=== PATIENT | female | born 1955 | race Caucasian/White ===

== ENCOUNTER 2020-02-02 15:13 | Outpatient (CLI) | payer OTHER, SELFPAY ==
--- NOTE | ~2020-02-02 | XR_ITS ---
EXAMINATION: XR foot right standing 2V DATE: 02/02/2020 16:39 INDICATION: Osteoarthritis. TECHNIQUE: 1. Standing dorsal plantar and lateral views of the left foot were obtained. 2. Standing dorsal plantar and lateral views of the right foot were obtained. COMPARISON: None. FINDINGS: Multiple hammertoes at the bilateral feet. Alignment is otherwise normal. No fracture. Mild polyartic ular osteoarthritis involving multiple joints in the mid and forefeet. No cortical erosions. There ar e bilateral Achilles and plantar calcaneal enthesophytes. Additional enthesopathic ossification along the proximal aspect of the bilateral plantar aponeurosis. IMPRESSION: 1. Mild polyarticular osteoarthritis at both feet. 2. Chronic enthesopathy with bilateral Achilles and plantar calcaneal enthesophytes and heterotopic o ssification along the bilateral plantar aponeuroses. Reviewed, dictated and finalized at location A. IMPRESSION: 1. Mild polyarticular osteoarthritis at both feet. 2. Chronic enthesopathy with bilateral Achilles and plantar calcaneal enthesoph ytes and heterotopic ossification along the bilateral plantar aponeuroses.
--- NOTE | ~2020-02-02 | XR_ITS ---
EXAMINATION: HAND-PEGGY ARTHRITIS 3+VIEWS DATE: 02/02/2020 16:39 INDICATION: Osteoarthritis TECHNIQUE: Posteroanterior, lateral, and oblique views of the left and of the right hands as well as a ballcatchers view of both hands were obtained. COMPARISON: None. FINDINGS: No fracture. The articular osteoarthritis, severe at the right fifth distal interphalangeal joint wit h mild radial angulation. Moderate osteoarthritis at the left fifth distal interphalangeal joint. Mil d osteoarthritis at the bilateral first carpal metacarpal joints and majority of the interphalangeal joints with distal predominance. Mild cystic change versus less likely chronic erosion with corticate d margins at the radial aspect of the head of the right third middle phalanx. Diffuse osteopenia. IMPRESSION: 1. Polyarticular osteoarthritis in both hands in the severe at the right and moderate to the left fif th distal interphalangeal joints and otherwise mild with typical distribution. Reviewed, dictated and finalized at location A. IMPRESSION: 1. Polyarticular osteoarthritis in both hands in the severe at the right and mo derate to the left fifth distal interphalangeal joints and otherwise mild with typical distribution.
--- NOTE | ~2020-02-02 | XR_ITS ---
XR knee LT 3V DATE: 02/02/2020 16:40 INDICATION: Left knee pain TECHNIQUE: [place], standing AP and lateral views COMPARISON: 08/05/2016 left knee FINDINGS: There is enthesopathy of the superior pole of the patella at the insertion of the quadricep s tendon. No fracture or dislocation or any significant joint effusion is evident. No periosteal reaction or leah ne destruction. No radiopaque intra-articular loose body or chondrocalcinosis. There is osteoarthritis at the patellofemoral joint, with periarticular mild spurring. IMPRESSION: Osteoarthritis at the patellofemoral joint Reviewed, dictated and finalized at location A.
--- NOTE | ~2020-02-02 | XR_ITS ---
EXAMINATION: XR foot LT standing 2V DATE: 02/02/2020 16:39 INDICATION: Osteoarthritis. TECHNIQUE: 1. Standing dorsal plantar and lateral views of the left foot were obtained. 2. Standing dorsal plantar and lateral views of the right foot were obtained. COMPARISON: None. FINDINGS: Multiple hammertoes at the bilateral feet. Alignment is otherwise normal. No fracture. Mild polyartic ular osteoarthritis involving multiple joints in the mid and forefeet. No cortical erosions. There ar e bilateral Achilles and plantar calcaneal enthesophytes. Additional enthesopathic ossification along the proximal aspect of the bilateral plantar aponeurosis. IMPRESSION: 1. Mild polyarticular osteoarthritis at both feet. 2. Chronic enthesopathy with bilateral Achilles and plantar calcaneal enthesophytes and heterotopic o ssification along the bilateral plantar aponeuroses. Reviewed, dictated and finalized at location A. IMPRESSION: 1. Mild polyarticular osteoarthritis at both feet. 2. Chronic enthesopathy with bilateral Achilles and plantar calcaneal enthesoph ytes and heterotopic ossification along the bilateral plantar aponeuroses.
--- NOTE | ~2020-02-02 | XR_ITS ---
XR knee RT 3V DATE: 02/02/2020 16:39 INDICATION: Unspecified osteoarthritis TECHNIQUE: [place] and standing AP and lateral views COMPARISON: None FINDINGS: There is mild periarticular spurring of the patella. No fracture or dislocation or joint effusion is evident. No periosteal reaction or bone destruction. No radiopaque intra-articular loose body or chondrocalcinosis. IMPRESSION: Mild patellofemoral osteoarthritis Reviewed, dictated and finalized at location A.
== END 2020-02-02 15:14 | disposition home or self-care (01) ==
LOC: ANHIMG 15:17
PROVIDERS: Visit Provider Internal Medicine
DX: M19.041 Primary osteoarthritis, right hand (principal); M19.042 Primary osteoarthritis, left hand; M19.071 Primary osteoarthritis, right ankle and foot; M19.072 Primary osteoarthritis, left ankle and foot; M17.0 Bilateral primary osteoarthritis of knee
CPT/HCPCS: 73130; 73562; 73620

== ENCOUNTER → 2020-02-17 08:05 | Outpatient (CLI) | payer OTHER, SELFPAY ==
--- NOTE | ~2020-02-17 | US_ITS ---
EXAMINATION: US carotid duplex BI DATE: 02/17/2020 08:44 INDICATION: Essential hypertension. Headache. TECHNIQUE: Grayscale, color Doppler, and pulsed Doppler images of the cervical carotid arteries were obtained. The degree of vessel stenosis is placed in one of the following categories: normal, <50%, 5 0-69%, >=70% but less than near-occlusion, near-occlusion, or total occlusion. Note that percent sten osis relative to normal distal artery lumen diameter is indirectly measured from velocity measurement s as described by Placido, et al. Radiology 2003; 229:340-346. Notes: Normal: Peak systolic velocity <125 centimeters/sec and no plaque <50%. Peak systolic velocity <125 ( EDV <40; ICA/CCA PSV ratio <2.0; used these factors only a tandem lesions or low cardiac output or co ntralateral disease) 50-69 %: PSV 125-230 (EDV 40-100; ratio 2-4) >= 70% but less than near occlusion: PSV greater than 230 (EDV > 100; ratio> 4.0) Near Occlusion: PSV that is variable; markedly narrowed lumen Occlusion: Absent flow on color/spectral Doppler and no lumen on lozano scale. COMPARISON: None. FINDINGS: RIGHT: The right common carotid artery (CCA) peak systolic velocity (PSV) is 90 cm/s. The right internal car otid artery (ICA) PSV is 72 cm/s. The right ICA end-diastolic velocity (EDV) is 22 cm/s. The right IC A/CCA PSV ratio is 0.8. The external carotid artery (ECA) PSV is 65 cm/s. There is antegrade flow in the right vertebral artery. LEFT: The left CCA PSV is 98 cm/s. The left ICA PSV is 66 cm/s. The left ICA EDV is 24 cm/s. The left ICA/C CA PSV ratio is 0.7. The ECA PSV is 56 cm/s. There is antegrade flow in the left vertebral artery. IMPRESSION: 1. Less than 50% stenosis in the right internal carotid artery by sonographic criteria. 2. Less than 50% stenosis in the left internal carotid artery by sonographic criteria. Reviewed, dictated and finalized at location A. IMPRESSION: 1. Less than 50% stenosis in the right internal carotid artery by sonographic jose castro. 2. Less than 50% stenosis in the left internal carotid artery by sonographic ivone smalls.
== END ==
DX: I10 Essential (primary) hypertension (principal); I65.23 Occlusion and stenosis of bilateral carotid arteries
CPT/HCPCS: 93880

== ENCOUNTER → 2020-03-08 17:22 | Outpatient (CLI) | payer OTHER, SELFPAY ==
--- NOTE | ~2020-03-08 | MM_ITS ---
EXAMINATION: MM screening lazara BI w linus HISTORY: Screening TECHNIQUE: Craniocaudal and mediolateral oblique 3-D tomosynthesis images were obtained and synthetic 2-D images were generated. CAD analysis was submitted and interpreted. COMPARISON: Comparison to multiple prior studies sequentially, with oldest reviewed study dated 01/14. BREAST PARENCHYMAL COMPOSITION: There are scattered areas of fibroglandular density. FINDINGS: There is no evidence of suspicious mass, calcification, or architectural distortion to sugg est malignancy in either breast. There has been no suspicious interval change. IMPRESSION: 1. No mammographic evidence of malignancy. 2. Recommend routine screening mammography in one year. BI-RADS Category 1: Negative Reviewed, dictated and finalized at location A.
== END ==
PROVIDERS: PCP Internal Medicine Geriatric Medicine
DX: Z12.31 Encounter for screening mammogram for malignant neoplasm of breast (principal)
CPT/HCPCS: 77063; 77067

== ENCOUNTER → 2021-09-06 14:39 | Outpatient (CLI) | payer BC, MEDICARE, SELFPAY ==
--- NOTE | ~2021-09-06 | XR_ITS ---
XR finger 2nd RT min 2V DATE: 09/06/2021 15:28 INDICATION: Puncture wound of second digit TECHNIQUE: 5 views COMPARISON: None FINDINGS: No radiopaque soft tissue foreign body or subcutaneous emphysema is noted. There is osteoarthritic change at the interphalangeal joints. No fracture, dislocation, periosteal re action or bone destruction. IMPRESSION: No radiopaque foreign body Reviewed, dictated and finalized at location A. IMPRESSION: No radiopaque foreign body
== END ==
PROVIDERS: PCP Physician Assistant; Visit Provider Physician Assistant
DX: T14.8XXA Other injury of unspecified body region, initial encounter (principal)
CPT/HCPCS: 73140

== ENCOUNTER → 2021-12-19 13:01 | Outpatient (CLI) | payer BC, MEDICARE, SELFPAY ==
--- NOTE | ~2021-12-19 | US_ITS ---
EXAMINATION: US pelvic complete w TV DATE: 12/19/2021 13:31 INDICATION: Postmenopausal bleeding Comparison:No prior studies for comparison. TECHNIQUE: Multiple transabdominal and endovaginal sonographic images of the pelvis performed. FINDINGS: The uterus measures 7.8 x 3.1 x 4.2 cm. The endometrial complex measures 6 mm. The ovaries are not visualized. There is no free fluid in the pelvis. There are no abnormal masses seen on either side. IMPRESSION: 1. Thickened endomtrial complex. The differential diagnosis includes endometrial hyperplasia, polyp a nd carcinoma. Biopsy is recommended. Reviewed, dictated and finalized at location A. IMPRESSION: 1. Thickened endomtrial complex. The differential diagnosis includes endometria l hyperplasia, polyp and carcinoma. Biopsy is recommended.
== END ==
PROVIDERS: PCP Physician Assistant; Visit Provider Obstetrics & Gynecology
DX: R10.2 Pelvic and perineal pain (principal); N93.9 Abnormal uterine and vaginal bleeding, unspecified
CPT/HCPCS: 76830; 76856

== ENCOUNTER 2022-02-10 23:58 | Emergency (ER) | payer BC, MEDICARE, SELFPAY ==
[2022-02-11] VITALS: BP 158/109; PULSE 80; RESP 20; TEMP 36.6; O2SAT 98
[2022-02-11] MEDS: KETOROLAC (*BKC) 60 MG/2 ML VIAL IM (01:36)
--- NOTE | 2022-02-11 01:47 | ED.DENTAL ---
HPI - Dental/Oral General Chief complaint: Dental/Oral Stated complaint: dental abscess Time Seen by Provider: 02/11/22 00:43 History of Present Illness HPI Narrative: 66-year-old female presents the emergency room with right lower molar pain. Patient states pain is been present for 4 days and is radiating into her ear and into her throat. Patient denies fever. Patient does not have regular dental care. States pain is sensitive to cold. Related Data Home Medications Medication Instructions Recorded Confirmed lisinopril 5 mg tablet 5 mg PO DAILY 02/02/20 03/08/20 meloxicam 15 mg tablet 15 mg PO DAILY 02/02/20 03/08/20 terbinafine HCl 250 mg tablet 250 mg PO DAILY 02/02/20 03/08/20 Allergies Allergy/AdvReac Type Severity Reaction Status Date / Time levofloxacin Allergy Unknown shortness Verified 03/08/20 11:38 of breath prochlorperazine Allergy Anaphylaxis Verified 02/11/22 00:07 [From Compazine] Review of Systems Review of Systems: CONSTITUTIONAL: Denies fever, chills, or sweats. EYES: Denies visual changes, redness, or discharge. ENT: Reports dental pain CARDIOVASCULAR: Denies chest pain, palpitations, or edema. RESPIRATORY: Denies cough or dyspnea. GASTROINTESTINAL: Denies abdominal pain, nausea, vomiting, or diarrhea. GENITOURINARY: Denies dysuria or hematuria. SKIN: Denies rash or itching. MUSCULOSKELETAL: Denies back pain, joint pain, or myalgia. NEUROLOGIC: Denies headache, numbness, dizziness, or weakness. PSYCHIATRIC: Denies anxiety or depression. PMFSH Past Medical History Medical History Age related osteoporosis Arthritis Head ache Herniated cervical disc Inflammatory arthritis (~05/2019) Pathological fracture, left foot, subsequent encounter for fracture with routine healing Family History Family History Mother Kidney failure Grandparent Arthritis Kidney failure Social History Social History Smoking status: Never smoker Alcohol intake: never Substance use: never Exam Narrative: GENERAL: Well-appearing, well-nourished, no physical limitations, and in no acute distress. HEAD: Normocephalic, atraumatic. EYES: Conjunctivae normal, PERRLA and EOMI. ENT: Right lower molar. No signs of abscess. No gingival erythema or swelling. No perimandibular swelling. Tenderness over the right lower molar NECK: Supple. CHEST: Clear to auscultation. No respiratory distress. No wheezes rales or rhonchi. No tenderness. HEART: Regular rate and rhythm. No murmur heard. Normal peripheral pulses. EXTREMITIES: Normal range of motion. No edema. No clubbing or cyanosis SKIN: Warm, dry, no rash. No noted wounds NEURO: No focal deficits. Alert and oriented x3. MAEW. CN's II-XI intact bilaterally, normal gait PSYCH: Cooperative. Normal mood and affect. Course Vital Signs Vital signs: Vital Signs Temperature 36.6 C 02/11/22 00:00 Pulse Rate 80 02/11/22 00:00 Respiratory Rate 20 02/11/22 00:00 Blood Pressure 158/109 H 02/11/22 00:00 Pulse Oximetry 98 02/11/22 00:00 Oxygen Delivery Room Air 02/11/22 00:00 Temperature 36.6 C 02/11/22 00:00 Pulse Rate 80 02/11/22 00:00 Respiratory Rate 20 02/11/22 00:00 Blood Pressure 158/109 H 02/11/22 00:00 Pulse Oximetry 98 02/11/22 00:00 Oxygen Delivery Room Air 02/11/22 00:00 Procedures Nerve Block Nerve Block 1: Nerve block date: 02/11/22 Nerve block time: 01:56 Time out performed: Yes Local Anesthetic: bupivacaine 0.25% and with epi Amount of anesthesia used (mL): 3 Side: right Intraoral Nerve Block: inferior alveolar Procedure Successful: Yes Patient Tolerated Procedure: well Complications: none Discharge Plan Discharge Clinical Impression: Toothache
[2022-02-11] MEDS: AMOXICILLIN/CLAVULANATE K 875-125 MG TAB 1 TABLET PO (01:58)
[2022-02-11 02:05] VITALS: BP 146/90; PULSE 84; RESP 16; TEMP 36.6; O2SAT 100
== END 2022-02-11 02:06 | disposition home or self-care (01) ==
PROVIDERS: Emergency Provider Nurse Practitioner Family; PCP Physician Assistant
DX: K08.89 Other specified disorders of teeth and supporting structures (principal); M19.90 Unspecified osteoarthritis, unspecified site
CPT/HCPCS: 64999; 96372; 99283; A9270; J1885

== ENCOUNTER 2022-04-05 03:55 | Emergency (ER) | payer BC, MEDICARE, SELFPAY ==
[2022-04-05] VITALS (20 sets, daily range): BP systolic 108–149; BP diastolic 69–96; PULSE 68–108; RESP 11–26; TEMP 37.1; O2SAT 94–98
--- NOTE | ~2022-04-05 | XR_ITS ---
EXAMINATION: XR chest 2V DATE: 04/05/2022 04:32 INDICATION: Chest pain TECHNIQUE: PA and lateral views of the chest are obtained. COMPARISON: None available FINDINGS: The lungs are free of acute opacities. No pleural effusion or pneumothorax. The cardiomedia stinal silhouette is normal. There is moderate thoracic spondylosis. IMPRESSION: 1. No acute cardiopulmonary abnormality. Reviewed, dictated and finalized at location B. [employer]
--- NOTE | 2022-04-05 03:59 | ECG_ITS ---
Measurements Intervals [place] Rate: 94 P: 26 CO: 140 QRS: 5 QRSD: 78 T: -20 QT: 328 QTc: 412 Interpretive Statements SINUS RHYTHM DELAYED PRECORDIAL R/S TRANSITION ST-T WAVE ABNORMALITY IN INFERIOR LEADS- CONSIDER ISCHEMIA BASELINE ARTIFACT- I, II, III, AVR, AVF ABNORMAL ECG NO PREVIOUS ECG AVAILABLE FOR COMPARISON Electronically Signed On 04-05-2022 7:20:58 PATIENT ACCOUNTS SPECIALIST by Shay De D.O.
--- NOTE | 2022-04-05 04:04 | PC.NURSE ---
C/o bilateral shoulder pain into arm on left side and left sided jaw pain. Also c/o numbness and tingling to left hand.
[2022-04-05 04:09] LABS: Basophils Absolute Auto 0.1 K/mm3 (0.0-0.1); Basophils Percent Auto 0.7 % (0.2-1.2); Eosinophils Absolute Auto 0.2 K/mm3 (0-0.3); Hematocrit 35.5 % (37.0-47.0); Hemoglobin 11.9 g/dL (12.0-15.0); Immature Granulocyte Absolute 0.02 K/mm3 (0.00-0.031); Immature Granulocyte Percent A 0.3 % (0-0.5); Lymphocytes Absolute Auto 1.09 K/mm3 (0.9-3.2); Mean Corpuscular HGB Conc 33.5 g/dl (32-36); Mean Corpuscular Volume 92.4 fl (80-100); Mean Platelet Volume 8.7 fl (7.4-10.4); Monocytes Absolute Auto 0.6 K/mm3 (0.1-0.6); Monocytes Percent Auto 8.5 % (2.6-8.5); Neutrophils Absolute Auto 5.3 K/mm3 (1.3-6.7); Neutrophils Percent Auto 72.5 % (45.5-73.1); Platelet Count Result 251 k/mm3 (150-375); Red Blood Count 3.84 M/mm3 (4.2-5.4); Red Cell Distribution Width 12.1 % (11.5-14.5); White Blood Count 7.3 K/mm3 (4.5-10.0)
[2022-04-05 04:21] LABS: Alanine Aminotransferase 18 U/L (6-35); Albumin Level 4.3 g/dL (3.5-5.1); Alkaline Phosphatase 90 U/L (38-126); Anion Gap 11 mmol/L (8-16); Aspartate Amino Transferase 24 U/L (14-36); Bilirubin,Total 0.6 mg/dL (0.2-1.3); Blood Urea Nitrogen 25 mg/dL (7-17); Calcium 8.8 mg/dL (8.4-10.2); Carbon Dioxide 29 mmol/L (22-30); Chloride 98 mmol/L (98-107); Estimated CRCL calculation 50 ml/min; Estimated Glomerular Filt Rate 55; Glucose 120 mg/dL (65-110); Lipase 28 U/L (23-300); Potassium 4.2 mmol/L (3.4-5.0); Sodium 138 mmol/L (137-145)
[2022-04-05 04:22] LABS: INR 0.9
--- NOTE | 2022-04-05 04:25 | ED.CHESTPAIN ---
HPI - Chest Pain General Chief Complaint: Chest Pain Stated Complaint: BILATERAL SHOULDER PAIN, LEFT ARM & JAW PAIN Time Seen by Provider: 04/05/22 04:06 History of Present Illness HPI narrative: 67-year-old female presenting to the emergency department for evaluation of left shoulder pain. Patient reports the pain has been constant over the last 2 days. Patient denies any falls or injuries. Patient reports the pain is worsened with movement of the left shoulder and turning her neck. Patient was having some vaginal bleeding and is scheduled to have a biopsy done on 05/06. In order to be cleared for surgery patient had a stress test and cardiac echo approximately 2 weeks ago and these were negative. Related Data Home Medications Medication Instructions Recorded Confirmed lisinopril 5 mg tablet 5 mg PO DAILY 02/02/20 03/08/20 meloxicam 15 mg tablet 15 mg PO DAILY 02/02/20 03/08/20 terbinafine HCl 250 mg tablet 250 mg PO DAILY 02/02/20 03/08/20 Allergies Allergy/AdvReac Type Severity Reaction Status Date / Time levofloxacin Allergy Unknown shortness Verified 03/08/20 11:38 of breath prochlorperazine Allergy Anaphylaxis Verified 02/11/22 00:07 [From Compazine] Review of Systems Review of Systems: CONSTITUTIONAL: Denies fever, chills, or sweats. EYES: Denies visual changes, redness, or discharge. ENT: Denies rhinorrhea, congestion, sore throat, or otalgia. CARDIOVASCULAR: Denies chest pain, palpitations, or edema. RESPIRATORY: Denies cough or dyspnea. GASTROINTESTINAL: Denies abdominal pain, nausea, vomiting, or diarrhea. GENITOURINARY: Denies dysuria or hematuria. SKIN: Denies rash or itching. MUSCULOSKELETAL: Left shoulder pain NEUROLOGIC: Denies headache, numbness, or weakness. PSYCHIATRIC: Denies anxiety or depression. [facility] Past Medical History Medical History Age related osteoporosis Arthritis Head ache Herniated cervical disc Inflammatory arthritis (~05/2019) Pathological fracture, left foot, subsequent encounter for fracture with routine healing Family History Family History Mother Kidney failure Grandparent Arthritis Kidney failure Social History Social History Smoking status: Never smoker Alcohol intake: never Substance use: never Exam Narrative: APPEARANCE: Well appearing, no pain, no distress, well-nourished. HEAD: normocephalic, atraumatic. EYES: PERRLA/EOMI, conjunctivae clear. NOSE: Normal no drainage NECK: Supple. No adenopathy, no masses. RESPIRATORY: Airway patent, respirations nonlabored. Clear to auscultation bilaterally, no rales, rhonchi, wheezing. CARDIOVASCULAR: Regular rate and rhythm without murmurs rubs or gallops. ABDOMINAL: Soft, nontender, nondistended, normal bowel sounds MUSCULOSKELETAL: Reproducible tenderness of posterior left shoulder and left lateral neck muscles. NEURO: Alert. Cranial nerves II through XII intact. Grossly intact SKIN: Warm, dry. Normal Color Course Course Emergency Course: Patient did feel improved with treatment with Dilaudid Toradol and Flexeril. Patient's x-ray showed no acute cardiopulmonary malady. Patient is afebrile with no leukocytosis. Patient had negative troponin. Patient's pain has been constant for greater than 24 hours so only a single troponin was ordered. Patient was updated on the plan for treatment at home. And on the importance of close follow-up with her primary care physician. All questions concerns were addressed. Vital Signs Vital signs: Vital Signs Temperature 98.7 F 04/05/22 03:55 Pulse Rate 107 H 04/05/22 03:55 Respiratory Rate 12 04/05/22 03:55 Blood Pressure 138/92 H 04/05/22 03:55 Pulse Oximetry 94 04/05/22 03:55 Oxygen Delivery Room Air 04/05/22 03:55 Temperature 98.7 F 04/05/22 07:25 Pulse Ra
[2022-04-05 04:32] LABS: Troponin I < 0.012 ng/mL (0.000-0.034)
[2022-04-05] MEDS: HYDROmorphone HCL INJ (*CRX) 1 MG/ML SYR 0.5 MG IV PUSH (04:39)
[2022-04-05] MEDS: CYCLOBENZAPRINE HCL 10 MG TABLET PO (04:39)
[2022-04-05] MEDS: KETOROLAC 15 MG/ML VIAL (*BKC) IV PUSH (06:03)
== END 2022-04-05 07:25 | disposition home or self-care (01) ==
PROVIDERS: Emergency Provider Emergency Medicine; PCP Physician Assistant
DX: M54.2 Cervicalgia (principal); M81.0 Age-related osteoporosis without current pathological fracture; M19.90 Unspecified osteoarthritis, unspecified site
CPT/HCPCS: 36415; 71046; 80053; 83690; 84484; 85025; 85610; 85730; 93005; 96374; 96375; 99284; A9270; J1170; J1885

== ENCOUNTER 2022-10-22 23:53 | Emergency (ER) | payer BC, MEDICARE, SELFPAY ==
--- NOTE | ~2022-10-22 | CT_ITS ---
EXAMINATION: CTA chest PE protocol DATE: 10/23/2022 02:57 INDICATION: Dyspnea. TECHNIQUE: Computed tomography angiography (CTA) of the chest was performed with 100 mL Omnipaque-350 intravenous contrast timed to evaluate the pulmonary arteries. Coronal maximum intensity projection 3D-reconstructions were created by the technologist. Automated exposure control and iterative reconst ruction technique were employed. The dose-length product was 252.87 mGy-cm. COMPARISON: None. FINDINGS: There is mild scarring in paraspinal right lower lobe. There is minimal atelectasis in the lungs. There are small bilateral posterior diaphragmatic hernias containing fat. No pleural effusion. The heart size is normal. No pericardial effusion. There is no pulmonary embolus. There is moderate thoracic spondylosis. IMPRESSION: 1. No pulmonary embolus. Reviewed, dictated and finalized at location A. IMPRESSION: 1. No pulmonary embolus.
--- NOTE | ~2022-10-22 | XR_ITS ---
EXAMINATION: XR chest 2V DATE: 10/23/2022 01:24 INDICATION: 3 days of cough and congestion TECHNIQUE: PA and lateral views of the chest were obtained. COMPARISON: Chest radiograph dated 04/05/2022 FINDINGS: The lungs are clear with no focal airspace opacities, pulmonary edema, pleural effusion or pneumothor ax. The cardiomediastinal silhouette is normal. Moderate thoracic spondylosis. Lower cervical anterio r spinal fusion with anterior plate and screw fixation. IMPRESSION: 1. No acute cardiopulmonary disease. Reviewed, dictated and finalized at location B.
[2022-10-23 00:12] VITALS: BP 149/85; PULSE 86; RESP 14; TEMP 36.6; O2SAT 99
[2022-10-23 00:51] VITALS: BP 153/76; PULSE 72; RESP 15; O2SAT 98
--- NOTE | 2022-10-23 01:03 | ECG_ITS ---
Measurements Intervals [place] Rate: 81 P: 42 [place]: 140 QRS: -6 QRSD: 85 T: -3 QT: 340 QTc: 396 Interpretive Statements SINUS RHYTHM DELAYED PRECORDIAL R/S TRANSITION CONSIDER INFERIOR INFARCT, AGE INDETERMINATE BASELINE ARTIFACT- I, II, III ABNORMAL ECG COMPARED TO ECG 04/05/2022 04:03:19 NO SIGNIFICANT CHANGES Electronically Signed On 10-23-2022 8:14:21 CDT by Shay De D.O.
--- NOTE | 2022-10-23 01:05 | ED.SOB ---
HPI - SOB/Dyspnea General Chief Complaint: Shortness of Breath/Dyspnea <GIOVANNY Burk Last Filed: 10/23/22 03:03> Stated Complaint: short of breath <GIOVANNY Burk Last Filed: 10/23/22 03:03> Time Seen by Provider: 10/23/22 00:37 <GIOVANNY Burk Last Filed: 10/23/22 03:03> History of Present Illness HPI Narrative: 67-year-old female reports for evaluation of nonproductive cough and body aches x3 days. Patient reports persistent coughing and inability to take a deep breath without eliciting a cough. She reports chest tightness, states her left ear is burning . She denies fever, chills, nausea, vomiting, diarrhea, urinary complaints, abdominal pain or back pain, lower extremity edema. She reports she was diagnosed with pneumonia approximately 20 years ago and the symptoms are similar. She denies history of CHF, COPD, asthma. She does not smoke. <GIOVANNY Burk Last Filed: 10/23/22 03:03> Related Data Home Medications: Home Medications Medication Instructions Recorded Confirmed lisinopril 5 mg tablet 5 mg PO DAILY 02/02/20 03/08/20 meloxicam 15 mg tablet 15 mg PO DAILY 02/02/20 03/08/20 terbinafine HCl 250 mg tablet 250 mg PO DAILY 02/02/20 03/08/20 <GIOVANNY Burk Last Filed: 10/23/22 03:03> Allergies/Adverse Reactions: Allergies Allergy/AdvReac Type Severity Reaction Status Date / Time levofloxacin Allergy Unknown shortness Verified 10/23/22 00:56 of breath prochlorperazine Allergy Anaphylaxis Verified 10/23/22 00:56 [From Compazine] <GIOVANNY Burk Last Filed: 10/23/22 03:03> Review of Systems Review of Systems: CONSTITUTIONAL: Denies fever, chills EYES: Denies visual changes, redness, or discharge. ENT: Denies rhinorrhea, congestion, sore throat, or otalgia. CARDIOVASCULAR: See HPI RESPIRATORY: See HPI GASTROINTESTINAL: Denies abdominal pain, nausea, vomiting, or diarrhea. GENITOURINARY: Denies dysuria or hematuria. SKIN: Denies rash or itching. MUSCULOSKELETAL: Denies back pain, joint pain, or myalgia. NEUROLOGIC: Denies headache, numbness, dizziness, or weakness. PSYCHIATRIC: Denies anxiety or depression. <Nida Wilson PA-C - Last Filed: 10/23/22 03:03> [facility] Past Medical History Medical History: Medical History Age related osteoporosis Arthritis Head ache Herniated cervical disc Inflammatory arthritis (~05/2019) Pathological fracture, left foot, subsequent encounter for fracture with routine healing <Nida Wilson PA-C - Last Filed: 10/23/22 03:03> Family History Family History: Family History Mother Kidney failure Grandparent Arthritis Kidney failure <Nida Wilson PA-C - Last Filed: 10/23/22 03:03> Social History Social History: Social History Smoking status: Never smoker Alcohol intake: never Substance use: never <Nida Wilson PA-C - Last Filed: 10/23/22 03:03> Exam Narrative: GENERAL: Well-appearing, in no acute distress. Patient speaking in full sentences, she is pleasant conversational. Coughing on exam. HEAD: Normocephalic EYES: PERRLA, EOMI ENT: Nares clear. Mucous membranes moist. Oropharynx without tonsillar hypertrophy exudate or other lesions. Bilateral TMs are lozano nonbulging NECK: Supple. CHEST: No respiratory distress. Clear to auscultation, no adventitious breath sounds. HEART: Regular rate and rhythm. No murmur heard. Normal peripheral pulses. ABDOMEN: Soft, nontender, normal active bowel sounds. EXTREMITIES: Normal range of motion. No edema. SKIN: Warm, dry, no rash. NEURO: No focal deficits. Alert and oriented x3. PSYCH: Normal mood and affect. <Nida Wilson PA-C - Last Filed: 10/23/22 03:03> Course Cou
--- NOTE | 2022-10-23 01:17 | PC.NURSE ---
Pt to imaging at this time.
[2022-10-23 01:45] LABS: Eosinophils Absolute Auto 0.2 K/mm3 (0-0.3); Eosinophils Percent Auto 5.3 % (0-4.4); Hematocrit 34.8 % (37.0-47.0); Hemoglobin 11.3 g/dL (12.0-15.0); Immature Granulocyte Absolute 0.01 K/mm3 (0.00-0.031); Immature Granulocyte Percent A 0.3 % (0-0.5); Lymphocytes Percent Auto 27.9 % (18.3-44.2); Mean Corpuscular HGB Conc 32.5 g/dl (32-36); Mean Corpuscular Hemoglobin 31.3 pg (26-34); Mean Corpuscular Volume 96.4 fl (80-100); Mean Platelet Volume 9.1 fl (7.4-10.4); Monocytes Absolute Auto 0.5 K/mm3 (0.1-0.6); Monocytes Percent Auto 13.5 % (2.6-8.5); Neutrophils Absolute Auto 2.1 K/mm3 (1.3-6.7); Platelet Count Result 239 k/mm3 (150-375); Red Blood Count 3.61 M/mm3 (4.2-5.4); Red Cell Distribution Width 11.9 % (11.5-14.5); White Blood Count 3.9 K/mm3 (4.5-10.0)
[2022-10-23 01:58] LABS: Alanine Aminotransferase 18 U/L (6-35); Alkaline Phosphatase 78 U/L (38-126); Anion Gap 4 mmol/L (8-16); Aspartate Amino Transferase 22 U/L (14-36); Bilirubin,Total 0.2 mg/dL (0.2-1.3); Blood Urea Nitrogen 40 mg/dL (7-17); Calcium 8.6 mg/dL (8.4-10.2); Carbon Dioxide 32 mmol/L (22-30); Chloride 102 mmol/L (98-107); Estimated CRCL calculation 38 ml/min; Estimated Glomerular Filt Rate 41; Glucose 99 mg/dL (65-110); Potassium 4.6 mmol/L (3.4-5.0); Sodium 138 mmol/L (137-145)
[2022-10-23 02:01] VITALS: PULSE 69; RESP 13; O2SAT 97
[2022-10-23 02:05] LABS: D Dimer 0.98 ug/mL (<0.48)
[2022-10-23] MEDS: SODIUM CHLORIDE 0.9% IV 1,000 ML 999 ML IV CONT (02:08)
[2022-10-23 02:10] LABS: NT Pro B Type Natriuretic Pept 62 pg/mL (19.9-100); Troponin I < 0.012 ng/mL (0.000-0.034)
[2022-10-23 02:21] LABS: Influenza A QL RT-PCR Negative (Negative); Influenza B QL RT-PCR Negative (Negative); SARS-CoV-2 RNA PCR Negative (Negative)
== END 2022-10-23 05:00 | disposition home or self-care (01) ==
PROVIDERS: Emergency Provider Physician Assistant; PCP Physician Assistant
DX: J40 Bronchitis, not specified as acute or chronic (principal); Z20.822 Contact with and (suspected) exposure to COVID-19; M19.90 Unspecified osteoarthritis, unspecified site; Z87.01 Personal history of pneumonia (recurrent); R94.31 Abnormal electrocardiogram [ECG] [EKG]; R06.02 Shortness of breath
CPT/HCPCS: 36415; 71046; 71275; 80053; 83880; 84484; 85025; 85380; 87636; 93005; 96360; 99284; J7030; Q9967

== ENCOUNTER 2024-10-20 10:18 | Outpatient (CLI) | payer BC, MEDICARE, SELFPAY ==
--- NOTE | ~2024-10-20 | XR_ITS ---
CHEST RADIOGRAPH, PA AND LATERAL CLINICAL HISTORY: ACUTE COUGH, SOB . COMPARISON: 10/23/2022 TECHNIQUE: PA and lateral views of the chest. FINDINGS The cardiomediastinal silhouette is unremarkable. The lungs are clear. IMPRESSION: No focal infiltrate or effusion. Reviewed, dictated and finalized at location A.
--- OUTSIDE RECORDS SUMMARY | 2024-10-20 10:26 | XMS_ITS | Clinical Summary ---
Author Organization [facility] [employer] Address [address] [place] [address] Care Team Providers Care Cook Fishing Vessel Name Role Phone Nini Kramer PA-C Primary Care Provider [phone] Source Comments [facility] Affiliates and Associated Physician Practices is amultiple site organization consisting of ambulatory clinics and hospital sitesin [place], [place], [place] and [place]. This disclosure is being madepursuant to the Care Everywhere program and may not contain all information available regarding this patient. Last updated 18.[facility] [employer] Allergies Active Allergy Reactions Criticality Noted Date Comments Prochlorperazine Anaphylaxis High 06/22/2019 Levofloxacin Anaphylaxis High 06/22/2019 Medications * Be aware that medications may not be up to date on this document. Alwaysverify current medications with the patient. benzonatate (TESSALON) 200 MG capsuleIndicatio ns:Lower respiratory infection Take 1 capsule by mouth 3 times daily as needed for Cough 30 capsule 0 Active Additional Information Patient not taking.Reported on 05/11/2024 albuterol HFA (PROVENTIL;EARLINE MELANIE;PROAIR) 108 (90 Base) MCG/ACT inhalerIndicatio ns:Wheezing Inhale 2 puffs by mouth every 6 hours as needed 1 Inhaler 0 Active azelastine (Optivar) 0.05 % ophthalmic solution 1 (one) drop two times daily at 4am and 4pm 3 Active Sublocade 100 MG/0.5ML SOSY injection Active folic acid (Folvite) 1 MG tablet Take 1 (one) tablet by mouth once daily Active hydroxychloroqui ne (Plaquenil) 200 MG tablet Take 1 (one) tablet by mouth 2 times daily Active ketorolac (Acular) 0.5 % ophthalmic solution 1 (one) drop 4 Active omeprazole (PriLOSEC) 40 MG capsule TAKE 1 CAPSULE (40 MG TOTAL) BY MOUTH DAILY. 4 Active ondansetron, disintegrating, (Zofran ODT) [address] 1 TAB ON TOP OF TONGUE TO DISSOLVE, THEN SWALLOW, 3 TIMES PER DAY NEEDED 4 Active predniSONE (Deltasone) 5 MG tablet TAKE 1-3 TABLETS BY ORAL ROUTE ONCE A DAY Active rosuvastatin (Crestor) 10 MG tablet Take 1 (one) tablet by mouth once daily 4 Active timolol maleate (Timoptic) 0.5 % ophthalmic solution APPLY ONE DROP IN EACH EYE TWICE A DAY Active tobramycin-dexAM ETHasone (Tobradex) 0.3-0.1 % ophthalmic suspension USE 1 DROP IN BOTH EYES 4 TIMES A DAY FOR 4 DAYS, TWICE A DAY FOR 4 DAYS AND ONCE A DAY FOR 4 DAYS Active HYDROcodone-acet aminophen ([place]) 5-325 MG tabletIndication s:Cholecystitis Take 1 (one) tablet by mouth every 6 hours as needed 12 tablet 4 Active Additional Information Patient not taking.Reported on 05/11/2024 Sennosides-Docus ate Sodium (Senna-Docusate Sodium) 8.6-50 MG Take 2 (two) tablets by mouth once daily 60 tablet 4 Active polyethylene glycol 3350 (Miralax) 17 GM/SCOOP powder Take 17 (seventeen) g by mouth once daily 238 g 4 Active buPROPion SR 12hr (Wellbutrin SR) 200 MG tablet 1 tablet in the morning Oral twice a day for 90 days Active methotrexate 2.5 MG tablet 4 Active nystatin (Mycostatin) 358899 UNIT/ML suspension TAKE 5 MILLILITERS (500,000 UNIT) BY ORAL ROUTE 4 TIMES PER DAY FOR 7 DAYS 4 Active lisinopril (Prinivil; Zestril) 20 MG tablet Take 1 (one) tablet by mouth once daily Active penicillin v potassium (Veetids) 500 MG tablet Take 1 (one) tablet by mouth Active tiZANidine (Zanaflex) 2 MG capsule Take 1 (one) capsule by mouth at bedtime Active fluconazole (Diflucan) 150 MG tablet Take 1 (one) tablet by mouth once 4 Active estradiol (Estrace) 0.1 MG/GM vaginal cream Insert 1 g into the vagina at bedtime for 14 days, THEN 1 g Two times a week. 42.5 g 11 4 05/25/20 Active Active Problems Problem Noted Date Diagnosed Date Vaginal atrophy 05/11/2024 Assessment & Plan (05/11/2024 12:10 PM FOOT ROENTGENOLOGIST): - prescription for estrace sent to pharmacy. Pt instructed on how to take medication. - She denies any history of breast cancer, uterine cancer, DVT/PE. She is s/p hysterectomy. Postmenopausal estrogen deficiency 05/11/2024 Assessment & Plan (05/11/2024 12:11 PM FOOT ROENTGENOLOGIST): - patient with systemic symptoms of menopause. Previously had improvement in symptoms on systemic hormone therapy. Requesting systemic HRT. - recommended patient obtain HRT with primary ornithology teacher so terminal system operator follow up and prescription adjustment can occur with same provider. Pt stated understanding. 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 We discussed the treatment options for prolapse including conservative management, pessary and surgical management. We reviewed the benefits and risks of each treatment option and she elected for surgical correction. We reviewed the surgical option that she was a good candidate for, specifically, vaginal approach with ho-chunk tissue repair in the form of iliococcygeal ligament suspension, possible anterior colporrhaphy, possible posterior colporrhaphy, and cystoscopy. We reviewed that this surgery would involve a vaginal approach using suture and ho-chunk tissue to provide reinforcement to the tissues on the posterior vaginal wall. We discussed the 15% rate of posterior vaginal prolapse recurrence and the specific risks of postoperative vaginal scarring and dyspareunia and the possible effects upon vaginal intercourse. We also discussed to 15% risk of buttock pain upon awakening from surgery and that most of the time this buttock pain resolves with time and pain medications. Rarely does this buttock pain require emergent return to the operating room for suture release. We discussed the general surgical risks of bleeding, infection, damage to surrounding organs including rectum, bowel, bladder, major blood vessels, ureters and nerves, need for further surgery, risk of postoperative urinary incontinence (stress or urge), urinary retention, recurrent prolapse, leg numbness, buttock pain, dyspareunia, vaginal scarring, risk of rectovaginal fistula, and the rarer risks of blood clot, heart attack, pneumonia, . We discussed the potential risk of needing further procedures. We discussed the possibility of experiencing a short term difficulty with emptying her bladder immediately after surgery. This could require the use of a catheter, either self-administered or indwelling, temporarily after surgery. We also discussed the possibility of experiencing postoperative defecatory dysfunction. Assessment & Plan (04/08/2024 1:28 PM FOOT ROENTGENOLOGIST): - S/p laparoscopic assisted vaginal hysterectomy, right salpingectomy, anterior repair, uterosacral ligament suspension, cystoscopy and JAIME (09/12/22) - Dr. Cast - S/p posterior repair and perineoplasty (01/2024) - Dr. Cast; with recurrence 1-2 weeks after surgery. Prolapse: We reviewed this patient's particular anatomy with the patient. We discussed the treatment options for prolapse including expectant management, pelvic floor physical therapy, pessary, and surgical management. We reviewed the benefits and risks of each treatment option. She was specifically interested in surgical repair, leaning towards iliococcygeal suspension (TVL 6cm), anterior repair, possible posterior repair, +/- midurethral sling pending results of office CMG. We reviewed surgical options including vaginal approach with ho-chunk tissue repairs as well as abdominal repair with mesh via a robotic-assisted laparoscopic approach. We discussed the risks, benefits and alternatives to each surgical approach. We talked about the risks of recurrence after each procedure quoting a 20-30% risk of recurrence with vaginal ho-chunk tissue repair and a less than 10% risk of recurrence with mesh sacrocolpopexy. We discussed risks of mesh exposure and erosion. As with all procedures, we discussed various surgical risks associated with both mesh and non-mesh reconstructive surgeries. We specifically discussed the risks of mesh erosion, vaginal scarring, pain and the FDA safety notification. Evaluation of Stress or Occult Stress Incontinence: For further evaluation of her symptoms, we recommended that she return for preoperative cystometrogram (CMG) and surgical consultation All her questions were answered and she verbalized understanding. Social History Tobacco Use Types Packs/Day Years Used Date Smoking Tobacco: Never Smokeless Tobacco: Never Tobacco Cessation:Counseling Given: Not Answered Alcohol Use Standard Drinks/Week Comments Not Currently 0 (1 standard drink = 0.6 oz pur e alcohol) Comments No Sex and Gender Information Value Date Recorded Sex Assigned at Not on file Legal Sex Female 6:37 PM FOOT ROENTGENOLOGIST Gender Identity Not on file Sexual Orientation Not on file Last Filed Vital Signs Vital Sign Reading Time Taken Comments Blood Pressure 128/80 05/11/2024 11:19 AM FOOT ROENTGENOLOGIST Pulse 82 04/22/2024 8:15 AM FOOT ROENTGENOLOGIST Temperature 37 C (98.6 F) 04/22/2024 8:15 AM FOOT ROENTGENOLOGIST Respiratory Rate 20 04/22/2024 8:15 AM FOOT ROENTGENOLOGIST Oxygen Saturation 94% 04/22/2024 8:15 AM FOOT ROENTGENOLOGIST Inhaled Oxygen Concentration - - Weight 76.2 kg (168 lb) 05/11/2024 11:19 AM FOOT ROENTGENOLOGIST Height 157.5 cm (5' 2) 05/11/2024 11:19 AM FOOT ROENTGENOLOGIST Body Mass Index 30.73 05/11/2024 11:19 AM FOOT ROENTGENOLOGIST Plan of Treatment Health Maintenance Due Date Last Done Comments COLOGUARD (AGES 45-75) - COLON CA SCREENING 1956 COLON MONITORING 1956 COLONOSCOPY - COLON CA SCREENING 1956 CT COLONOGRAPHY - COLON CA SCREENING 1955 Colorectal Cancer Screening 1956 FIT - COLON CA SCREENING 1956 FLEX SIG - COLON CA SCREENING 1956 MEDICARE AWV 12 MONTHS 1956 HEPATITIS C SCREENING 02/20/1974 DTAP/TDAP/TD VACCINES (1 - Tdap) 02/24/1975 PNEUMOCOCCAL VACCINE 50+ (1 of 1 - PCV) 02/24/2006 ZOSTER VACCINE (1 of 2) 02/24/2006 COVID-19 VACCINE (4 - season) 2024 05/17/2021, 08/16/2020, 07/19/2020 DEPRESSION SCREENING 05/26/2024 MAMMOGRAM 09/02/2025 09/03/2023, 08/24, 07/25/2022, Additional history exists SCREENING FOR DIABETES 04/20/2027 , 04/19/2024, 04/19/2024 Respiratory Syncytial Virus (RSV) Vaccine Pt: or over 60 yrs (1 - 1-dose 75+ series) 02/24/2031 BONE DENSITY TESTING Completed 04/18/2021 INFLUENZA VACCINE Completed 01/15/2024, , 03/26/2022, Additional history exists HEPATITIS B VACCINE Aged Out No longe r eligible based on patient's age to complete this topic HIB VACCINE Aged Out No longer eligi ble based on patient's age to complete this topic HPV VACCINE Aged Out No longer eligi ble based on patient's age to complete this topic MENINGOCOCCAL (Group B) VACCINE SHARED DECISION-MAKING Aged Out No longer eligible based on patient's age to complete this topic MENINGOCOCCAL GROUPS A/C/Y/W VACCINE Aged Out No longer eligible based on patient's age to complete this topic Procedures Procedure Name Priority Date/Time Associated Diagnosis Comments COMPREHENSIVE METABOLIC PANEL AM Draw 04/20/2024 3:22 AM FOOT ROENTGENOLOGIST Cholecystitis from Last 3 Months or Most Recently Relevant to Health Maintenance Results * (ABNORMAL) COMPREHENSIVE METABOLIC PANEL (04/20/2024 3:22 AM FOOT ROENTGENOLOGIST) Glucose 100(H) 70 - 99 mg/dL 04/20/2024 4:24 AM FOOT ROENTGENOLOGIST [facility] Sodium 140 136 - 145 mmol/L 04/20/2024 4:24 AM FOOT ROENTGENOLOGIST [facility] Potassium 4.5 3.5 - 5.1 mmol/L 04/20/2024 4:24 AM FOOT ROENTGENOLOGIST [facility] Chloride 108(H) 98 - 107 mmol/L 04/20/2024 4:24 AM [facility] CO2 25 22 - 29 mmol/L 04/20/2024 4:24 AM [facility] Calcium 8.6 8.4 - 10.4 mg/dL 04/20/2024 4:24 AM [facility] Anion Gap 7 6 - 16 mmol/L 04/20/2024 4:24 AM [facility] BUN 23 7 - 26 mg/dL 04/20/2024 4:24 AM [facility] Creatinine 1.29(H) 0.57 - 1.11 mg/dL 04/20/2024 4:24 AM [facility] Alkaline Phosphatase 81 40 - 150 U/L 04/20/2024 4:24 AM [facility] ALT 39 0 - 55 U/L 04/20/2024 4:24 AM [facility] AST 54(H) 5 - 34 U/L 04/20/2024 4:24 AM [facility] Protein Total 5.7(L) 6.4 - 8.3 gm/dL 04/20/2024 4:24 AM [facility] Albumin 3.3(L) 3.4 - 5.0 gm/dL 04/20/2024 4:24 AM [facility] Bilirubin Total 0.3 0.2 - 1.2 mg/dL 04/20/2024 4:24 AM [facility] eGFR by CKD-EPI 45(L) >=90 mL/min/1.7 3 m2 04/20/2024 4:24 AM [facility] Blood BLOOD SPECIMEN / Unknown Venipuncture / Unknown 04/20/2024 3:22 AM FOOT ROENTGENOLOGIST 04/20/2024 3:58 AM FOOT ROENTGENOLOGIST us Lenin Edwards MD LAB - CHEMISTRY ORDERABLES Fin al Result [facility] [address] [place] [address] from Last 3 Months or Most Recently Relevant to Health Maintenance Insurance MEDICARE ANTHEM MEDICARE [employer] Advance Directives * Full Code (Latest Code Status on File) Date Activated Date Inactivated Comments 04/19/2024 8:09 PM 04/22/2024 4:56 PM Care Teams Cook Fishing Vessel Relationship Specialty Start Date End Date Nini Kramer PA-C [address] [place] [id number] PCP - General Physician Customer Service Teller 04/08/24
--- OUTSIDE RECORDS SUMMARY | 2024-10-20 10:26 | XMS_ITS | Encounter Summary ---
Author Organization [facility] Healthcare Address [address] [place] [address] Care Team Providers Care Payroll Lead Name Role Phone Nini Kramer Primary Care Provider [phone] Lotus Baptiste MD Unavailable Dilan Duncan MD Unavailable Reason for Visit * Reason Onset Date Comments Medical Question/Miscellaneous 10/19/2024 Encounter Details Date Type Department Care Team (Late st Contact Info) Description 10/19/2024 Telephone [facility] - Breast Imaging [address] [place] [address] Angie Holguin MD PhD [address] [phone] [place], [place] [id number] Medical Question/Miscellaneous Social History Tobacco Use Types Packs/Day Years Used Date Smoking Tobacco: Never Smokeless Tobacco: Never Alcohol Use Standard Drinks/Week Comments Not Currently 0 (1 standard drink = 0.6 oz pur e alcohol) [facility] Utilities Answer Date Recorded In the past 12 months has [employer], gas, oil, or water company threatened to shut off services in your home? No 04/28/2024 Social Connection and Isolat ion Panel [NHANES] Answer Date Recorded In a typical week, how many times do you talk on the phone with family, friends, or neighbors? More than three times a week 04/28/2024 How often do you get togethe r with friends or relatives? More than three times a week 04/28/2024 How often do you attend chur ch or confucianism services? Never 04/28/2024 Do you belong to any clubs o r organizations such as oriental orthodox groups, unions, fraternal or athletic groups, or school groups? No 04/28/2024 How often do you attend meet ings of the clubs or organizations you belong to? Never 04/28/2024 Are you , , di vorced, , never , or living with a partner? Never 04/28/2024 AUDIT-C Answer Date Recorded Q1: How often do you have a drink containing alcohol? Never 08/12/2024 Q2: How many drinks containi ng alcohol do you have on a typical day when you are drinking? Patient does not drink Q3: How often do you have si x or more drinks on one occasion? Never 08/12/2024 Overall Financial Resource Strain (CARDIA) Answe r Date Recorded How hard is it for you to pa y for the very basics like food, housing, medical care, and heating? Not very hard 04/28/2024 PHQ-2 Answer Date Recorded PHQ-2 Total Score (If total score is 3 or more points, staff should administer the PHQ-9) 0 08/12/2024 Hunger Vital Sign Answer Date Recorded Within the past 12 months, y ou worried that your food would run out before you got the money to buy more. Never true 04/28/20 Within the past 12 months, t he food you bought just didn't last and you didn't have money to get more. Never true 04/28/2024 PRAPARE - Transportation Answer Date Re corded In the past 12 months, has l ack of transportation kept you from medical appointments or from getting medications? Yes 08/2023 In the past 12 months, has l ack of transportation kept you from meetings, work, or from getting things needed for daily living? Yes 04/28/2024 Housing Stability Vital Sign Answer Willy e Recorded In the last 12 months, was t here a time when you were not able to pay the mortgage or rent on time? No 04/28/2024 Number of Times Moved in the Last Year Not on fi le 04/28/2024 At any time in the past 12 m [facility], were you homeless or living in a snf (including now)? No 04/28/2024 Personal Safety Answer Date Recorded Have you ever been in or are you currently in a harmful physical or emotional relationship or is someone making you feel afraid or unsafe? Denies 08/31/2024 Comments No Sex and Gender Information Value Date Recorded Sex Assigned at Not on file Legal Sex Female 12:20 AM BIOMEDICAL ANALYTICAL SCIENTIST Gender Identity Not on file Sexual Orientation Not on file documented as of this encounter Miscellaneous Notes * Telephone Encounter - Jenny Frank RN - 10/20/2024 10:05 AM CDT Date: 10/20/2024 Reason: Returning call Provider: Dr. Angie Holguin Outcome/Plan: Called patient to go over consult for imaging that has been placed. Patient informed me that she spoke to someone an they indicated that she does not need the imaging and that if further imaging is needed it would be ordered at the appointment. Patient has no other concerns or questions at this time. * Telephone Encounter - Gianna Casillas - 10/19/2024 11:15 AM CDT Patient Query: Was an attempt to transfer to the assigned clinical staff or backline? no Reason for call?: Patient needs ultrasound and mammogram scheduled at [facility] (Read message back to caller and ask them if there is anything else they'd like to add to the message) Who is the caller: Kathie Solis What is the best number for them to contact for a call back: [phone] Last office visit: Visit date not found Date of Surgery: 02/18/2024 documented in this encounter Plan of Treatment Not on file documented as of this encounter Visit Diagnoses Not on filedocumented in this encounter Care Teams Payroll Lead Relationship Specialty Start Date End Date Nini Kramer PA [address] [address] PCP - General Internal Medicine 10/03/20 Lotus Baptiste MD [address] [facility], [address] [address] Consulting Physician Pain Management 05/01/22 Dilan Duncan MD [address] [facility], [address] [address] Consulting Physician Cardiology 01/28/24 documented as of this encounter
--- OUTSIDE RECORDS SUMMARY | 2024-10-20 10:26 | XMS_ITS | Encounter Summary ---
Author Organization [facility] Healthcare Address [address] [place] [address] Care Team Providers Care Rotary Envelope Machine Operator Name Role Phone Nini Kramer Primary Care Provider + [phone] Lotus Baptiste MD Unavailable Dilan Duncan MD Unavailable Encounter Details Date Type Department Care Team (Late st Contact Info) Description 09/24/2024 Results Follow-Up [facility] Family Medicine [address] [place] [address] Nini Kramer PA [address] [place], [place] [id number] [place] Breast Bilateral Limited Social History Tobacco Use Types Packs/Day Years Used Date Smoking Tobacco: Never Smokeless Tobacco: Never Alcohol Use Standard Drinks/Week Comments Not Currently 0 (1 standard drink = 0.6 oz pur e alcohol) [facility] Utilities Answer Date Recorded In the past 12 months has [employer], gas, oil, or water company threatened to [...] any clubs o r organizations such as adventist groups, unions, fraternal or athletic groups, or [...] money to buy more. Never true 04/28/20 24 Within the past 12 months, t he [...] any time in the past 12 m [facility], were you homeless or living in a halfway (including now)? No 04/28/2024 Personal Safety Answer Date Recorded Have you ever been in or are you currently in a harmful physical or emotional relationship or is someone making you feel afraid or unsafe? Denies 08/31/2024 Comments No Sex and Gender Information Value Date Recorded Sex Assigned at Not on file Legal Sex Female 12:20 AM BLANKET WEAVER Gender Identity Not on file Sexual Orientation Not on file documented as of this encounter Plan of Treatment Not on file documented as of this encounter Visit Diagnoses Not on filedocumented in this encounter Additional Health Concerns Infection Onset Date Last Indicated Resolved Time COVID: Suspected 10/13/2024 10/13/2024 10/13/2024 9:29 AM CDT documented as of this encounter Care Teams Rotary Envelope Machine Operator Relationship Specialty Start Date End Date Nini Kramer PA [address] [facility] [address] [place] [address] PCP - General Internal Medicine 10/03/20 Lotus Baptiste MD [facility], [address] [address] Consulting Physician Pain Management 05/01/22 Dilan Duncan MD [address] [place] [address] PAIN CENTER, [address] [address] Consulting Physician Cardiology 01/28/24 documented as of this encounter
--- OUTSIDE RECORDS SUMMARY | 2024-10-20 10:26 | XMS_ITS | Encounter Summary ---
Author Organization [facility] Address [address] [place] [address] Care Team Providers Care Meter Supervisor Name Role Phone Nini Kramer PA-C Primary Care Provider [phone] Encounter Details Date Type Department Care Team (Late st Contact Info) Description 09/27/2021 Lab Requisition [facility] [address] [place] [address] Keegan Austin [place] [address] Social History Tobacco Use Types Packs/Day Years Used Date Smoking Tobacco: Never Assessed Comments No Sex and Gender Information Value Date Recorded Sex Assigned at Not on file Legal Sex Female 6:37 PM TALENT ACQUISITION SPECIALIST Gender Identity Not on file Sexual Orientation Not on file documented as of this encounter Plan of Treatment Not on file documented as of this encounter Procedures Procedure Name Priority Date/Time Associated Diagnosis Comments DERMATOPATHOLOGY Routine 09/26/2021 3:33 AM CDT documented in this encounter Results * DERMATOPATHOLOGY (09/26/2021 3:33 AM CDT) Case Report Dermatopathology Report Case: [id number] Authorizing Provider: Keegan Austin MD Collected: 09/26/2021 03:33 AM Ordering Location: [facility] Received: 09/27/2021 01:49 PM Pathologist: Danish Troncoso MD Specimen: Skin, above right brow 2 6:53 PM CDT DERMATOPATHOLOGY LABORATORY Final Diagnosis Specimen A. SKIN, above right brow: LARGE CELL ACANTHOMA (D23.9) 2 6:53 PM CDT DERMATOPATHOLOGY LABORATORY at 1853 CDT Clinical History R/O ISK, dys nevus. 2 6:53 PM CDT DERMATOPATHOLOGY LABORATORY Gross Description Specimen A: Received is one formalin filled container labeled with the patient's name and designated above right brow. The specimen consists of a shave biopsy measuring [id number], 3y1c7eg, & 1l8w2qd. Jar 0. 2 6:53 PM CDT DERMATOPATHOLOGY LABORATORY Microscopic Description Specimen A. SKIN, above right brow: Sections show compact orthokeratosis with acanthosis composed of slightly larger keratinocytes with basal layer hyperpigmentation. 2 6:53 PM CDT DERMATOPATHOLOGY LABORATORY Disclaimer An external and internal positive and negative controls are appropriate for the histochemical, immunohistochemical and immunofluorescence stain(s) in this case (if any), except where stated explicitly. The performance characteristics of the stain(s) cited in this report were developed and its performance characteristic determined by the Dermatopathology Laboratory at [facility], directed by Dr. Birgit Troncoso. These tests need not be, and therefore are not, approved by the [place] Food and Drug Administration. The tests are used for clinical purposes. Billing Codes Specimen Charges Stain Charges 44927 1 2 6:53 PM CDT DERMATOPATHOLOGY LABORATORY Embedded Images 2 6:53 PM CDT DERMATOPATHOLOGY LABORATORY Pathology/Cytolo gy TISSUE SPECIMEN FROM SKIN / Unknown 09/26/2021 3:33 AM CDT 09/27/2021 1:49 PM CDT Keegan Austin MD LAB - PATHOLOGY/CYTOLOGY ORD ERABLES Final Result DERMATOPATHOLOGY LABORATORY [facility] - Department of Dermatology [address], [address] [phone] documented in this encounter Visit Diagnoses Not on filedocumented in this encounter Care Teams Meter Supervisor Relationship Specialty Start Date End Date Nini Kramer PA-C [address] [phone] PCP - General Physician Assembler Surgical Garment 04/08/24 documented as of this encounter
--- OUTSIDE RECORDS SUMMARY | 2024-10-20 10:26 | XMS_ITS | Encounter Summary ---
Author Organization [facility] Address [address] [place] [address] Care Team Providers Care Linoleum Tile Floor Layer Name Role Phone Nini Kramer PA-C Primary Care Provider [phone] Encounter Details Date Type Department Care Team (Late st Contact Info) Description 05/05/2024 [facility] Outpatient Visit [facility] - Surgery [address], [address] [place] [address] Lenin Edwards MD [address] [place] [address] [place] [id number] Social History Tobacco Use Types Packs/Day Years Used Date Smoking Tobacco: Never Smokeless Tobacco: Never Alcohol Use Standard Drinks/Week Comments Not Currently 0 (1 standard drink = 0.6 oz pur e alcohol) Comments No Sex and Gender Information Value Date Recorded Sex Assigned at Not on file 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 Answer Date of Assessment Author No 04/20/2024 8:09 AM Bonnie Mariscal RN * Is person blind or have serious difficulty seeing? Answer Date of Assessment Author No 04/20/2024 8:09 AM Bonnie Mariscal RN * Does person have serious difficulty walking/climbing stairs? Answer Date of Assessment Author No 04/20/2024 8:09 AM Bonnie Mariscal RN * Does person have difficulty dressing/bathing? Answer Date of Assessment Author No 04/20/2024 8:09 AM Bonnie Mariscal RN * Does person have difficulty doing errands alone? Answer Date of Assessment Author No 04/20/2024 8:09 AM Bonnie Mariscal RN documented as of this encounter Mental Status * Does person have difficulty concentrating/remembering/making decisions? Answer Entry Date Author No 04/20/2024 8:09 AM Bonnie Mariscal RN documented in this encounter Plan of Treatment Not on file documented as of this encounter Visit Diagnoses Not on filedocumented in this encounter Care Teams Linoleum Tile Floor Layer Relationship Specialty Start Date End Date Nini Kramer PA-C [address] [place] [address] [address] [place] [phone] PCP - General Physician Residential Recycle Driver 04/08/24 documented as of this encounter
--- OUTSIDE RECORDS SUMMARY | 2024-10-20 10:26 | XMS_ITS | Clinical Summary ---
Author Organization [facility] [address] Address [address] [place] [address] Care Team Providers Care Graphic Illustrator Name Role Phone Unavailable Primary Care Provider Unavailabl e Social History Tobacco Use Types Packs/Day Years Used Date Smoking Tobacco: Never Assessed Comments Unknown Sex and Gender Information Value Date Recorded Sex Assigned at Not on file Legal Sex Female 4:47 PM CDT Gender Identity Not on file Sexual Orientation Not on file Plan of Treatment Health Maintenance Due Date Last Done Comments DTAP/TDAP/TD VACCINES (1 - Tdap) 02/24/1975 BREAST CANCER SCREENING 1996 COLORECTAL SCREENING 02/24/2001 Colorectal Cancer Screening 02/24/2001 FIT-DNA Q 3 years 02/24/2001 FIT/FOBT Q 1 year 02/24/2001 Flex Sig/CT Colonography Q 5 years 02/24/2001 PNEUMOCOCCAL VACCINE 50+ YEARS (1 of 1 - PCV) 02/25/20 06 ZOSTER VACCINE (1 of 2) 02/24/2006 OSTEOPOROSIS SCREENING 02/24/2021 INFLUENZA VACCINE (#1) 2023 RSV VACCINE (60+ or ) (1 - 1-dose 75+ series) 02/24/2031
--- OUTSIDE RECORDS SUMMARY | 2024-10-20 10:26 | XMS_ITS | Referral Summary ---
Author Organization [facility] [address] Address [address] [place] [address] Phone Care Team Providers Care Lacemaker Name Role Phone Nini Kramer Primary Care Provider [phone] Lotus Baptiste MD Unavailable Dialn Duncan MD Unavailable Encounters Date Type Department Care Team Description 10/20/2024 Orders Only [facility] Surgery [address] [place] [address] Floor 8 [place] [address] Angie Holguin MD PhD Mass of breast, unspecified laterality (Primary Dx) 10/19/2024 Telephone [facility] - Breast Imaging [address] [place] [address] Floor 8 [place] [address] Angie Holguin MD PhD Medical Question/Miscellaneou s 10/19/2024 Orders Only [facility] Family Medicine [address] [facility] [address] [place] [phone] Nini Kramer PA Acute cough (Primary Dx) 10/15/2024 Orders Only [facility] Surgery [facility] Floor 8 [place] [address] Angie Holguin MD PhD Mass of breast, unspecified laterality (Primary Dx); Retraction of both nipples; Scattered fibroglandular tissue density of both breasts on mammography; Mammographic microcalcification; Mammary duct ectasia of right breast 10/15/2024 Orders Only [facility] Surgery [address] [place] [address] Floor 8 [place] [address] Nini Kramer PA Mass of breast, unspecified laterality (Primary Dx); Retraction of both nipples; Scattered fibroglandular tissue density of both breasts on mammography; Microcalcifications of the breast; Duct ectasia of breast, right 10/15/2024 Telephone [facility] Surgery [facility] Floor 8 [place] [address] Angie Holguin MD PhD 10/13/2024 9:00 AM CDT Office Visit [facility] [place] [address] [place] [id number] Suha Guidry NP Lower respiratory infection (Primary Dx); Acute eczematoid otitis externa of both ears; Mild intermittent asthma with status asthmaticus 09/28/2024 Orders Only [facility] [place] [address] [facility] [address] [place] [address] Nini Kramer PA Retraction of both nipples (Primary Dx); Palpable mass of breast 09/24/2024 Results Follow-Up [facility] Family Medicine [address] [place] [address] Nini Kramer PA US Breast Bilateral Limited 09/24/2024 Results Follow-Up [facility] Medicine [address] [facility] [place] [address] Nini Kramer PA Diagnostic Mammogram Bilateral W Jason 09/15/2024 2:17 PM CDT - 09/15/2024 11:59 PM CDT Hospital Encounter [facility] [address] [place] [address] Mass of breast, unspecified laterality; Mastodynia Discharge Disposition: Discharge to home or self care 09/15/2024 2:00 PM CDT - 09/15/2024 11:59 PM CDT Hospital Encounter [facility] 1 [place] [address] Mass of breast, unspecified laterality; Mastodynia Discharge Disposition: Discharge to home or self care 09/08/2024 [facility] [address] [address] Dali Orellana MA 09/07/2024 [facility] [address] [address] Dali Orellana MA 09/06/2024 [facility] [address] [address] Dali Orellana MA 09/01/2024 Results Follow-Up [address] [place] [phone] Nini Kramer PA Urine culture Urine, clean voided 09/01/2024 [facility] [address] [address] Jesi Lafleur CMA 08/31/2024 6:05 PM CDT - 08/31/2024 7:25 PM CDT Emergency [address] [address] Acute right-sided low back pain without sciatica (Primary Dx); Hematuria, unspecified type; Anemia, unspecified type Discharge Disposition: Discharge to home or self care 08/30/[address] [place] [phone] Nini Kramer PA 08/30/2024 3:00 PM CDT Clinical Support [address] [place] [phone] Dysuria (Primary Dx) 08/30/[address] [place] [phone] Nini Kramer PA Medical Question/Miscellaneou s 08/12/2024 1:00 PM CDT Office Visit [address] [place] [phone] Nini Kramer PA Bilateral mastodynia (Primary Dx); Mass of breast, unspecified laterality; Congestion of nasal sinus; BMI 31.0-31.9,adult; Obesity (BMI 30-39.9) 08/11/[address] [place] [phone] Nini Kramer PA Additional Services Or Orders 08/04/2024 8:00 AM CDT Office Visit [address] [place] [phone] Nini Kramer PA Vertigo (Primary Dx); Breast cancer screening by mammogram; Colon cancer screening; BMI 32.0-32.9,adult; Obesity (BMI 30-39.9) 07/29/2024 2:46 PM SENIOR PROJECT ARCHITECT - 07/30/2024 1:58 AM [facility] Emergency Department [address] [place] [id number] Discharge Disposition: Left without being seen 07/29/[address] [place] [phone] Nini Kramer PA Followup ED visit for vertigo 07/27/2024 [facility] Accountable Care Organization [address] [place] [address] Yessenia Banegas MA 07/26/2024 12:56 PM SENIOR PROJECT ARCHITECT - 07/26/2024 5:27 PM [facility] Emergency Department [address] [place] [id number] Pedro Kerr MD Vertigo (Primary Dx) Discharge Disposition: Discharge to home or self care from Last 3 Months Allergies Active Allergy Reactions Criticality Noted Date Comments Levofloxacin Anaphylaxis,Shortness of breath High Prochlorperazine Anaphylaxis,Rash High 02/16/2023 Compazine Medications Sublocade 100 mg/0.5 mL injection 1 Active buPROPion SR (WELLBUTRIN SR) 200 mg 12 hr tablet TAKE 1 TABLET BY MOUTH EVERY MORNING AND EVERY DAY AT NOON 2 Active blood pressure monitor kitIndications:Amy wallace hypertension 1 kit daily 1 kit 3 Active omeprazole (PriLOSEC) 40 mg capsule TAKE 1 CAPSULE (40 MG TOTAL) BY MOUTH DAILY. 90 capsule 2 4 Active hydroxychloroquine (PLAQUENIL) 200 mg tablet Take 1 tablet (200 mg total) by mouth 2 (two) times a day 4 Active folic acid (FOLVITE) 1 mg tablet Take 1 tablet (1,000 mcg total) by mouth daily Active predniSONE (DELTASONE) 5 mg tablet TAKE 1-3 TABLETS BY ORAL ROUTE ONCE A DAY Active ondansetron ODT (ZOFRAN-ODT) [address] 1 TAB ON TOP OF TONGUE TO DISSOLVE, THEN SWALLOW, 3 TIMES PER DAY NEEDED 4 Active albuterol HFA (Proventil HFA) 90 mcg/actuation inhaler Inhale 2 puffs every 6 (six) hours as needed for wheezing Active Senexon-S 8.6-50 mg Take 2 tablets by mouth daily Active polyethylene glycol (MIRALAX) 17 gram/dose bulk powder TAKE 17 (SEVENTEEN) GRAMS MIXED IN LIQUID BY MOUTH ONCE DAILY Active methotrexate 2.5 mg tablet 4 Active lisinopriL (PRINIVIL,ZESTRIL) 20 mg tabletIndications: Primary hypertension Take 1 tablet (20 mg total) by mouth daily 90 tablet 1 4 Active estradioL (ESTRACE) 0.01 % (0.1 mg/gram) vaginal cream Insert into the vagina 4 025 Active brimonidine (ALPHAGAN) 0.2 % ophthalmic solution INSTILL 1 DROP INTO BOTH EYES 3 TIMES A DAY 5 Active meclizine (ANTIVERT) 25 mg tablet Take 1 tablet (25 mg total) by mouth 3 (three) times a day for 7 days 21 tablet 5 Active methocarbamoL (ROBAXIN) 500 mg tablet Take 1 tablet (500 mg total) by mouth 2 (two) times a day 20 tablet 5 Active lidocaine (LIDODERM) 5 % Place 1 patch on the skin daily for 12 hours Remove & discard patch within 12 hours or as directed by . 30 patch 5 Active azelastine (OPTIVAR) 0.05 % ophthalmic solution 1 drop 2 (two) times a day 5 Active docusate sodium (COLACE) 100 mg capsule Take 1 capsule (100 mg total) by mouth 2 (two) times a day 5 Active latanoprost (XALATAN) 0.005 % ophthalmic solution 5 Active albuterol HFA (PROVENTIL HFA,VENTOLIN HFA,PROAIR HFA) 90 mcg/actuation inhalerIndications :Mild intermittent asthma with status asthmaticus Inhale 2 puffs every 4 (four) hours as needed for wheezing or shortness of breath 1 each 5 Active doxycycline monohydrate (MONODOX) 100 mg capsuleIndications :Lower respiratory infection Take 1 capsule (100 mg total) by mouth 2 (two) times a day for 7 days 14 capsule 5 025 Active neomycin-polymyxin -HC (CORTISPORIN) 3.5-10,000-1 mg/mL-unit/mL-% otic suspensionIndicati ons:Acute eczematoid otitis externa of both ears Administer 2 drops into each ear 4 (four) times a day for 7 days 10 mL 5 025 Active Hospital, Clinic, or Other Facility Administered Medication Ordered Dose Route Frequency Start Date End Date Status ipratropium-albuteroL (DUO-NEB) 0.5-2.5 mg/3 mL nebulizer solution 3 mLIndications:Chronic Obstructive Pulmonary Disease with Bronchospasms 3 mL nebu Once 10/13/2024 5 Ended Active Problems Problem Noted Date Diagnosed Date Moderate recurrent major depression 10/13/2024 Colon cancer screening 08/15/2024 Assessment & Plan (08/15/2024 6:02 PM CDT): Patient has never had colon cancer screening. No family history. Discussed screening options again and willing to do the Cologuard. Order placed Breast cancer screening by mammogram 08/15/2024 Assessment & Plan (08/15/2024 6:02 PM CDT): Mammogram order provided Vertigo 08/15/2024 Assessment & Plan (08/15/2024 6:03 PM CDT): Patient has experienced an episode of vertigo. Has been seen in the ER a couple of times. States she is beginning to feel better. Finish the antibiotic although the urine culture was negative. Does see some improvement with the meclizine. Still has quite a bit of facial congestion and difficulty breathing at night and does wonder if this affects her ability to breathe easily during the night especially with her CPAP on. At this point will recommend continuing current plan. Encouraged vestibular therapy. Order placed. If she is to have an increase in her symptoms she is to follow up immediately for further evaluation possible ENT evaluation/referral. Mass of breast 08/12/2024 Congestion of nasal sinus 08/12/2024 Bilateral mastodynia 08/12/2024 Status post laparoscopic cholecystectomy 024 Overview (05/16/2024): 04/2024 Dr. Edwards at [facility] Assessment & Plan (05/16/2024 9:47 PM SENIOR PROJECT ARCHITECT): Status post lap brittnee by Dr. Edwards at [facility]. States she is recovering well. Transitioned off her Sublocade injections while using the narcotics for her pain control. She states she has not restarted and has been off it about 2 weeks and inquires about continuing. Strongly encouraged her to talk with her pain management doctor for recommendations. Vaginal atrophy 05/11/2024 Lupus (systemic lupus erythematosus) 05/04/2024 Assessment & Plan (05/16/2024 9:48 PM SENIOR PROJECT ARCHITECT): Patient recently diagnosed with lupus. Seeing Dr. Stinson at the [facility] arthritis center at [facility]. She was prescribed methotrexate and Plaquenil. Had to take a short break during the cholecystectomy but plans to restart it and return for follow-up. LILIAM (acute kidney injury) 04/19/2024 Primary hypertension 01/29/2024 Assessment & Plan (05/16/2024 9:48 PM SENIOR PROJECT ARCHITECT): Bp is stable/in acceptable range for any co-morbidities. Encouraged to limit sodium intake and exercise for weight control. Continue lisinopril 20 Assessment & Plan (02/22/2024 12:11 PM CDT): Bp is stable/in acceptable range for any co-morbidities. Encouraged to limit sodium intake and exercise for weight control. Continue lisinopril 20 Nonsmoker 12/30/2023 Psychophysiological insomnia 12/30/2023 DEBBIE (obstructive sleep apnea) 12/30/2023 Wheezing 12/30/2023 Preop cardiovascular exam 12/09/2023 Assessment & Plan (12/10/2023 9:24 AM CDT): Encouraged healthy lifestyle, good nutrition and exercise. Encouraged Calcium and Vitamin D and weight bearing exercise for bone health. Reviewed immunizations. Reviewed age appropirate screenings. Medicare Wellness Documentation is completed within the chart Opioid dependence in remission 10/15/2023 Gastroesophageal reflux disease without esophagi tis 12/04/2022 Assessment & Plan (12/10/2023 9:24 AM CDT): Continue PPI p.r.n. Assessment & Plan (04/24/2023 10:42 PM SENIOR PROJECT ARCHITECT): Discussed GERD at length including anatomy, behavioral changes (anti-reflux maneuvers, avoid acidic foods like oranges and tomatoes., avoidance of spicy foods, avoid eating 3-4 hours before bed, elevation of the head of the bed), weight loss and medication options for treatment. Followup if sxs worsen or has hematochezia or hematemeis. Encouraged to increase the omeprazole to prescriptive dose of 40 mg daily. Prescription placed. Will monitor closely. If she was to have hematemesis or dark tarry stool she is to follow up immediately otherwise will see if this helps with her symptoms along with the behavioral changes. Follow-up 6 months for well-woman exam or sooner for any other problems or concerns Assessment & Plan (12/04/2022 9:23 AM CDT): Discussed GERD at length including anatomy, behavioral changes (anti-reflux maneuvers, avoid acidic foods like oranges and tomatoes., avoidance of spicy foods, avoid eating 3-4 hours before bed, elevation of the head of the bed), weight loss and medication options for treatment. Followup if sxs worsen or has hematochezia or hematemeis. Also discussed increased risk of NSAID use with gastric irritation/bleed. Reviewed s/s GI bleed and if occurs she is to go to the RE. She has decreased her diclofenac to 50 mg daily but unwilling to stop it as it is the only medicine that helps my pain. Will start Omeprazole 40mg to see if prescriptive dose help. May use Pepcid otc for break thru sxs. Followup in 4 weeks to reassess or sooner if has increased sxs or s/s GI bleeding. Check CMP/CBC now. Uterovaginal prolapse, incomplete 09/12/2022 Procidentia of uterus 05/08/2022 Cystocele with incomplete uterovaginal prolapse 05/08/2022 BMI 31.0-31.9,adult 05/03/2022 Assessment & Plan (08/12/2024 1:03 PM CDT): Discussed the patient's BMI. The BMI is above average. BMI management plan is completed. BMI Follow-up includes: nutrition counseling, exercise counseling and education provided. Assessment & Plan (09/22/2022 9:58 AM CDT): Discussed the patient's BMI. The BMI is above average. BMI management plan is completed. BMI Follow-up includes: nutrition counseling, exercise counseling and education provided. Assessment & Plan (05/03/2022 8:05 AM SENIOR PROJECT ARCHITECT): Discussed the patient's BMI. The BMI is above average. BMI management plan is completed. BMI Follow-up includes: nutrition counseling, exercise counseling and education provided. Mixed hyperlipidemia 02/07/2022 Assessment & Plan (02/22/2024 12:14 PM CDT): Encouraged patient to follow low fat/low chol diet like the Mediterranean diet. Increase good fats in the diet. Increase exercise. Monitor labs as needed. Reviewed labs with the patient and showed that when she was on it it appears as though her LDL is coming down. Encouraged her to restart. She will consider -- has supply at home. Assessment & Plan (12/10/2023 9:24 AM CDT): Encouraged patient to follow low fat/low chol diet like the Mediterranean diet. Increase good fats in the diet. Increase exercise. Monitor labs as needed. Patient never started the Crestor. She wants to try to do diet control only. Will recheck her labs to see if she has been able to get them down. Advised LDL goal is below 70 Assessment & Plan (04/24/2023 10:43 PM SENIOR PROJECT ARCHITECT): Encouraged patient to follow low fat/low chol diet like the Mediterranean diet. Increase good fats in the diet. Increase exercise. Monitor labs as needed. Assessment & Plan (12/04/2022 9:25 AM CDT): Encouraged patient to follow low fat/low chol diet like the Mediterranean diet. Increase good fats in the diet. Increase exercise. Monitor labs as needed. Osteoarthritis 01/20/2022 Assessment & Plan (12/10/2023 8:43 AM CDT): Patient has osteoarthritis multiple joints. She has been on diclofenac b.i.d. for years. I reduced it to daily and saw a rebound in her GFR. She states she actually takes it about 3 times a week now. Stressed to limited to the bare minimum due to her kidney function. If she has pain recommend Tylenol. Assessment & Plan (01/20/2022 7:21 PM CDT): See hypertension chronic kidney disease. Sparingly use NSAID as her GFR is at 59. Will continue to monitor closely Stage 3a chronic kidney disease 11/23/2021 Assessment & Plan (12/10/2023 8:44 AM CDT): Avoid nephrotoxic drugs including NSAIDs. Monitor labs. Assessment & Plan (11/20/2023 1:31 PM CDT): Avoid nephrotoxic drugs including NSAIDs. Monitor labs. Assessment & Plan (04/24/2023 10:41 PM SENIOR PROJECT ARCHITECT): Avoid nephrotoxic drugs including NSAIDs. Monitor labs. Assessment & Plan (12/04/2022 4:16 PM CDT): Avoid nephrotoxic drugs including NSAIDs. Monitor labs. Assessment & Plan (05/21/2022 12:12 PM SENIOR PROJECT ARCHITECT): Avoid nephrotoxic drugs including NSAIDs. Monitor labs. Assessment & Plan (01/20/2022 7:21 PM CDT): Avoid nephrotoxic drugs including NSAIDs. Monitor labs. Abnormal EKG 03/24/2021 Assessment & Plan (03/24/2021 2:22 PM CDT): This is a significant, separately identifiable problem that was evaluated and managed on the same day as the wellness exam EKG done for Medicare wellness exam. Shows abnormality with possible abnormal T- waves and a history of an infarct, patient denies any history of heart attack. Patient is completely asymptomatic. Denies chest pain, shortness of breath, headaches or visual changes or syncopal episodes. If more acute symptoms occur she is go to the ER. Otherwise will refer to cardiology for further evaluation of this abnormality. Benign hypertension with CKD (chronic kidney disease) stage III 11/05/2020 Assessment & Plan (12/10/2023 9:23 AM CDT): Bp is stable/in acceptable range for any co-morbidities. Encouraged to limit sodium intake and exercise for weight control. Avoid nephrotoxic drugs including NSAIDs. Monitor labs. Avoid nephrotoxic drugs including NSAIDs. Monitor labs. Continue lisinopril 20 Assessment & Plan (11/20/2023 1:32 PM CDT): Blood pressure is elevated today but she is sick. Will not make any adjustments. Await recommendations from the ER and treat the infection. Encouraged to limit sodium intake and exercise for weight control. Avoid nephrotoxic drugs including NSAIDs. Monitor labs. Assessment & Plan (04/24/2023 10:42 PM SENIOR PROJECT ARCHITECT): Bp is stable/in acceptable range for any co-morbidities. Encouraged to limit sodium intake and exercise for weight control. Avoid nephrotoxic drugs including NSAIDs. Monitor labs. Continue lisinopril 20 Assessment & Plan (12/04/2022 8:13 AM CDT): Encouraged to limit sodium intake and exercise for weight control. Avoid nephrotoxic drugs including NSAIDs. Monitor labs. Blood pressure today is not well controlled She was racing here so will try to get some readings from home. Continue lisinopril 20 Assessment & Plan (05/21/2022 12:17 PM SENIOR PROJECT ARCHITECT): This is a significant, separately identifiable problem that was evaluated and managed on the same day as the wellness exam Encouraged to limit sodium intake and exercise for weight control. Patient stop taking the losartan hydrochlorothiazide because it made her urinate. Reviewed with patient this is the process of the diuresis. Encouraged her to take as her blood pressure is not controlled. Reviewed the risk of uncontrolled blood pressure. She states she will restart it. She has refills available at home. Assessment & Plan (01/20/2022 7:19 PM CDT): Bp is stable/in acceptable range for any co-morbidities. Encouraged to limit sodium intake and exercise for weight control. Continue with lisinopril Her GFR is at 59. She is requests continue use of diclofenac. Advised to use as minimal as possible and recommend not to exceed 1 a day and will continue to monitor closely but that NSAIDs definitely are rough on the kidney functions. She voices understanding Assessment & Plan (03/24/2021 2:19 PM CDT): Blood pressure is up today may be secondary to withdrawing from her sub located. She is on lisinopril 20 mg. Continue to watch closely and if it continues remain elevated will need to increase the dose. . Encouraged to limit sodium intake and exercise for weight control. Assessment & Plan (11/05/2020 4:26 PM CDT): Bp is stable/in acceptable range for any co-morbidities. Encouraged to limit sodium intake and exercise for weight control. Continue lisinopril Onychomycosis 11/05/2020 Assessment & Plan (11/05/2020 4:26 PM CDT): Managed by Dr. Blount. Currently on lamisil Narcotic addiction 11/05/2020 Overview (12/04/2022): Percocet after neck surgery in approx 2009. Seeing [address]. Will and he manages the Suboxone. Started approx 2019 Assessment & Plan (12/10/2023 8:44 AM CDT): Patient with a history of narcotic addiction. Addicted to Percocet after neck surgery in 2009. Works with Dr. Munoz and he manages Suboxone. Assessment & Plan (12/04/2022 9:25 AM CDT): Continue Subaxone managed by Dr. Will Was referred to Dr. Baptiste, pain management but did not see results. Continue Cymbalta and neurotin. Assessment & Plan (05/03/2022 8:57 AM SENIOR PROJECT ARCHITECT): Narcotic addiction. She continues with Suboxone per pain management Assessment & Plan (03/24/2021 2:19 PM CDT): Dr. munoz him manages her some blood cane. Apparently there has been a problem with it getting renewed on his and. She was given a f ilm to help with withdrawal symptoms. She is cautious with using it because she has been clean for a little over a year. Encouraged her follow-up closely with pain management or symptoms worsen and she is assistance she may call us. Assessment & Plan (11/05/2020 8:37 PM CDT): On suboxone managed by Dr. Will Snoring 11/05/2020 Assessment & Plan (02/22/2024 12:11 PM CDT): Patient is awaiting sleep study with Dr. Cast. Will await recommendations Assessment & Plan (12/10/2023 9:23 AM CDT): Patient continues to have issues with snoring. She was preferred to sleep up in [place] but was unable to keep those appointments. Would like to be seen in [place] so will make referral to Dr. Cast for further evaluation of possible EDBBIE Assessment & Plan (11/05/2020 8:35 PM CDT): This is a significant, separately identifiable problem that was evaluated and managed on the same day as the wellness exam Patient snores, has daytimes sleepiness and will nod off when driving. Did a sleep study at home but she was told it didn't record and she never followed up. Willing to see sleep specialist. Menopause 11/05/2020 Overview (05/08/2022): On HRT , followed by Nelli Cast MD [employer] Assessment & Plan (03/24/2021 2:23 PM CDT): HRT in testosterone [facility] by [facility]. Check DEXA Obesity (BMI 30-39.9) 10/25/2020 Assessment & Plan (08/12/2024 1:03 PM CDT): Discussed the patient's BMI. The BMI is above average. BMI management plan is completed. BMI Follow-up includes: nutrition counseling, exercise counseling and education provided. Assessment & Plan (08/04/2024 8:04 AM CDT): BMI Follow-up includes: Discussed diet and exercising counseling. Assessment & Plan (05/04/2024 9:05 AM SENIOR PROJECT ARCHITECT): BMI Follow-up includes: Discussed diet and exercising counseling. Assessment & Plan (02/22/2024 12:11 PM CDT): Discussed the patient's BMI. The BMI is above average. BMI management plan is completed. BMI Follow-up includes: nutrition counseling, exercise counseling and education provided. Assessment & Plan (12/10/2023 9:23 AM CDT): Discussed the patient's BMI. The BMI is above average. BMI management plan is completed. BMI Follow-up includes: nutrition counseling, exercise counseling and education provided. Assessment & Plan (02/27/2021 1:04 PM CDT): Obesity is unchanged. Discussed the patient's BMI. The BMI is above average. BMI management plan is completed. BMI Follow-up includes: nutrition counseling, exercise counseling and education provided. Assessment & Plan (10/25/2020 10:33 AM CDT): Obesity is unchanged. Discussed the patient's BMI. The BMI is above average. BMI management plan is completed. BMI Follow-up includes: nutrition counseling, exercise counseling and education provided. Resolved Problems Problem Noted Date Diagnosed Date Resolved Date BMI 32.0-32.9,adult 08/04/2024 08/13/19 25 Assessment & Plan (08/04/2024 8:04 AM CDT): BMI Follow-up includes: Discussed diet and exercising counseling. Cholecystitis 05/16/2024 05/16/2024 BMI 31.0-31.9,adult 05/04/2024 08/05/19 25 Assessment & Plan (05/04/2024 9:04 AM SENIOR PROJECT ARCHITECT): BMI Follow-up includes: Discussed diet and exercising counseling. BMI 30.0-30.9,adult 02/11/2024 05/04/20 24 Assessment & Plan (02/22/2024 12:12 PM CDT): Discussed the patient's BMI. The BMI is above average. BMI management plan is completed. BMI Follow-up includes: nutrition counseling, exercise counseling and education provided. Pneumonia 11/20/2023 12/10/2023 Assessment & Plan (11/20/2023 1:35 PM CDT): Patient has been diagnosed with strep throat bronchitis and pneumonia in the past week. She is currently on antibiotics steroids and albuterol. She has been unable to take her last 2 doses of medicine due to emesis. I am concerned for dehydration. She also is not improving. Recommend that she go to the ER immediately for further evaluation and probable fluids and IV dosing of her meds until she is able to trial medications orally. She drove herself here. She states her family is out of the area as her kids just got . She states she is able to drive herself back up to the hospital as she plans to go to [facility]. Offered to call 911 but she is reassuring me that she is able to drive safely. I do feel she has the capacity today to make that decision. Patient requested a letter for her employer stating she has been off during this time due to her illness. Provided gave an approximate return date in about a week but it will depend upon how she recovers. Pneumonia of both lungs due to infectious organism 11/20/2023 11/20/2023 Diabetes mellitus screening 04/24/2023 12/10/2023 Assessment & Plan (04/24/2023 10:45 PM SENIOR PROJECT ARCHITECT): Check labs Breast cancer screening by mammogram 04/24/2023 12/10/2023 Assessment & Plan (04/24/2023 10:45 PM SENIOR PROJECT ARCHITECT): Mammogram order provided Need for influenza vaccination 04/24/2023 11/20/2023 Assessment & Plan (04/24/2023 10:46 PM SENIOR PROJECT ARCHITECT): Flu vaccine updated in the office today Obesity (BMI 30.0-34.9) 04/24/2023 0711/2023 Assessment & Plan (11/20/2023 1:32 PM CDT): Discussed the patient's BMI. The BMI is above average. BMI management plan is completed. BMI Follow-up includes: nutrition counseling, exercise counseling and education provided. Assessment & Plan (04/24/2023 10:45 PM SENIOR PROJECT ARCHITECT): Discussed the patient's BMI. The BMI is above average. BMI management plan is completed. BMI Follow-up includes: nutrition counseling, exercise counseling and education provided. BMI 31.0-31.9,adult 12/04/2022 02/11/20 Assessment & Plan (12/10/2023 9:24 AM CDT): Discussed the patient's BMI. The BMI is above average. BMI management plan is completed. BMI Follow-up includes: nutrition counseling, exercise counseling and education provided. Assessment & Plan (11/20/2023 1:32 PM CDT): Discussed the patient's BMI. The BMI is above average. BMI management plan is completed. BMI Follow-up includes: nutrition counseling, exercise counseling and education provided. Assessment & Plan (04/24/2023 10:41 PM SENIOR PROJECT ARCHITECT): Discussed the patient's BMI. The BMI is above average. BMI management plan is completed. BMI Follow-up includes: nutrition counseling, exercise counseling and education provided. Assessment & Plan (12/04/2022 8:15 AM CDT): Weight/BMI is in healthy range. Continue healthy lifestyle to maintain. Fatigue 12/04/2022 12/10/2023 Assessment & Plan (04/24/2023 10:43 PM SENIOR PROJECT ARCHITECT): Probably multifactorial. Check labs and followup to re-evaluate Assessment & Plan (12/04/2022 9:18 AM CDT): Probably multifactorial. Check labs and followup to re-evaluate Bleeding from the nose 09/22/202212/09 Assessment & Plan (09/22/2022 9:59 AM CDT): Patient has had bleeding from the nose. She continues to pick on the left side and she states she pulls clots out every morning. This has been going on for many months. She noticed her voices more raspy and she is not hearing as well in the right ear. Recommend hydration with little noses or ocean mist nasal spray to the nostril. Stressed the importance of not picking at it. Will refer to ENT for further evaluation and see if they can visualize any changes up in the nose. Thickened endometrium 05/08/20222022 Need for vaccination for Strep pneumoniae 05/03/2022 12/04/2022 Assessment & Plan (05/21/2022 12:13 PM SENIOR PROJECT ARCHITECT): Prevnar 20 updated in the office today Medicare annual wellness visit, initial 05/03/2022 12/10/2023 Assessment & Plan (05/21/2022 12:14 PM SENIOR PROJECT ARCHITECT): Encouraged healthy lifestyle, good nutrition and exercise. Encouraged Calcium and Vitamin D and weight bearing exercise for bone health. Reviewed immunizations. Reviewed age appropirate screenings. Medicare Wellness Documentation is completed within the chart CORONA (dyspnea on exertion) 02/07/2022 Primary hypertension 02/07/2022 023 Assessment & Plan (09/22/2022 9:58 AM CDT): Bp is stable/in acceptable range for any co-morbidities. Encouraged to limit sodium intake and exercise for weight control. Continue losartan hydrochlorothiazide Assessment & Plan (05/21/2022 12:18 PM SENIOR PROJECT ARCHITECT): This is a significant, separately identifiable problem that was evaluated and managed on the same day as the wellness exam encouraged to limit sodium intake and exercise for weight control. Patient stop taking the losartan hydrochlorothiazide because it made her urinate. Reviewed with patient this is the process of the diuresis. Encouraged her to take as her blood pressure is not controlled. Reviewed the risk of uncontrolled blood pressure. She states she will restart it. She has refills available at home. Dysuria 01/20/2022 12/10/2023 Assessment & Plan (05/21/2022 12:13 PM SENIOR PROJECT ARCHITECT): Patient is noticing increased pressure with urination by the end of the day. Will check urine culture but suspect she could have a bladder prolapse are uterine prolapse based on her symptoms of feeling like something is falling out. Recommend talking with Dr. Dothager about treatment intervention as she is getting ready to have procedures done. Assessment & Plan (01/20/2022 7:21 PM CDT): Patient has felt a little bit more pressure and burning. Will check urinalysis and urine culture to rule out UTI Obesity (BMI 30-39.9) 11/22/20212022 Assessment & Plan (09/22/2022 9:57 AM CDT): Discussed the patient's BMI. The BMI is above average. BMI management plan is completed. BMI Follow-up includes: nutrition counseling, exercise counseling and education provided. Assessment & Plan (05/03/2022 8:05 AM SENIOR PROJECT ARCHITECT): Discussed the patient's BMI. The BMI is above average. BMI management plan is completed. BMI Follow-up includes: nutrition counseling, exercise counseling and education provided. Assessment & Plan (11/22/2021 11:46 AM CDT): Obesity is unchanged. Discussed the patient's BMI. The BMI is above average. BMI management plan is completed. BMI Follow-up includes: nutrition counseling, exercise counseling and education provided. BMI 30.0-30.9,adult 11/22/2021 05/03/20 22 Assessment & Plan (11/22/2021 11:46 AM CDT): Obesity is unchanged. Discussed the patient's BMI. The BMI is above average. BMI management plan is completed. BMI Follow-up includes: nutrition counseling, exercise counseling and education provided. Puncture wound 09/09/2021 11/23/2021 Assessment & Plan (09/09/2021 9:56 AM CDT): Patient had some type of injury to the finger there she is unsure if it was a puncture with a nail verses insect bite versus other etiology. Will go ahead and check an x-ray just to rule out any foreign body. Reviewed with patient only pack at metal foreign bodies not any other type of foreign body that is radiopaque like wood dirt etc.. Complete the antibiotics continue monitor closely if the erythema or warmness or swelling begins to increase she is to follow up immediately. Obesity (BMI 30-39.9) 08/28/20212021 Assessment & Plan (09/06/2021 2:04 PM CDT): Obesity is unchanged. Discussed the patient's BMI. The BMI is above average. BMI management plan is completed. BMI Follow-up includes: nutrition counseling, exercise counseling and education provided. Assessment & Plan (08/28/2021 2:03 PM CDT): Obesity is unchanged. Discussed the patient's BMI. The BMI is above average. BMI management plan is completed. BMI Follow-up includes: nutrition counseling, exercise counseling and education provided. BMI 30.0-30.9,adult 08/28/2021 11/23/19 22 Assessment & Plan (09/06/2021 2:04 PM CDT): Obesity is unchanged. Discussed the patient's BMI. The BMI is above average. BMI management plan is completed. BMI Follow-up includes: nutrition counseling, exercise counseling and education provided. Assessment & Plan (08/28/2021 2:03 PM CDT): Obesity is unchanged. Discussed the patient's BMI. The BMI is above average. BMI management plan is completed. BMI Follow-up includes: nutrition counseling, exercise counseling and education provided. Open wnd of finger 08/28/2021 Assessment & Plan (09/09/2021 9:56 AM CDT): Patient had some type of injury to the finger there she is unsure if it was a puncture with a nail verses insect bite versus other etiology. Will go ahead and check an x-ray just to rule out any foreign body. Reviewed with patient only pack at metal foreign bodies not any other type of foreign body that is radiopaque like wood dirt etc.. Complete the antibiotics continue monitor closely if the erythema or warmness or swelling begins to increase she is to follow up immediately. Assessment & Plan (08/28/2021 10:34 PM CDT): Open wound either by a nail puncture versus insect bite versus unknown. Complete the clindamycin. She is taking 450 mg 3 times a day and is tolerating okay. Will send to Diflucan as she states she does have trouble with yeast when on antibiotics. She will need to hold her Lamisil during this time to avoid interaction. Hold it for 3 days before and after taking the Diflucan. She is to continue to monitor this wound to very carefully if the redness returns starts to enlarge or starts having streaking she is to follow up immediately. It does not feel like there is any fluctuant fluid underneath the wound it appears it is all drained out so will discontinue to monitor allow to heal secondarily. Post-menopausal bleeding 07/27/202104/2023 Assessment & Plan (05/21/2022 12:12 PM SENIOR PROJECT ARCHITECT): History of postmenopausal bleeding. She has hysteroscopy scheduled with Dr. Castnext week. Will await those results and her recommendation. Assessment & Plan (01/20/2022 7:20 PM CDT): Patient continues per . Does occur. She has been instructed to repeat an ultrasound in a few months of to follow-up since had difficulty getting in with a stenotic os. Stressed she needs to keep these follow-ups. As I suspect she had hyperplasia secondary to unopposed estrogen but still want this follow through as hyperplasia precancer cancer cannot fully be ruled out. Patient voices understanding Assessment & Plan (08/05/2021 10:16 AM CDT): Patient started having postmenopausal bleeding on July 23. Upon further questioning it was determined she has been on estrogen testosterone cream and Prometrium 200 mg HS. This was started about 2-3 years ago. Approximately a year ago she stopped taking the Prometrium because she did not think she needed it since her hot flashes went away not realizing it would create an unopposed estrogen state and hence hyperplasia. Reviewed this information with her at length. Reviewed the workup including getting the ultrasound. She will also need endometrial biopsy plus or minus operative hysteroscopy with D&C. Reviewed possible pathology results including hyperplasia versus uterine cancer. She would like to be referred to a new and filter tank tender helper head. Will make that referral and weight there results. Encouraged her to restart the Prometrium to try to stabilize the lining and decrease the bleeding. Discussed getting additional lab work but will hold off at this point. If bleeding continues with probably benefit from a CBC. Last CBC was February and it was over 11. My staff made appointment made an appt for pt with Dr. Cast. Hormone replacement therapy (HRT) 07/27/2021 12/04/2022 Assessment & Plan (07/27/2021 7:32 AM SENIOR PROJECT ARCHITECT): See PMB Obesity (BMI 30-39.9) 07/26/20212021 Assessment & Plan (07/26/2021 1:25 PM SENIOR PROJECT ARCHITECT): Obesity is unchanged. Discussed the patient's BMI. The BMI is above average. BMI management plan is completed. BMI Follow-up includes: nutrition counseling, exercise counseling and education provided. BMI 30.0-30.9,adult 07/26/2021 08/29/19 Assessment & Plan (07/26/2021 1:25 PM SENIOR PROJECT ARCHITECT): Obesity is unchanged. Discussed the patient's BMI. The BMI is above average. BMI management plan is completed. BMI Follow-up includes: nutrition counseling, exercise counseling and education provided. Welcome to Medicare preventive visit 03/24/2021 07/27/2021 Assessment & Plan (03/24/2021 2:20 PM CDT): Encouraged healthy lifestyle, good nutrition and exercise. Encouraged Calcium and Vitamin D and weight bearing exercise for bone health. Reviewed immunizations. Reviewed age appropirate screenings. Medicare Wellness Documentation is completed within the chart EKG done in the office: Normal sinus rhythm Twave abnormality, consider inferior ischemia Abnormal EKG Breast cancer screening by mammogram 03/24/2021 12/04/2022 Assessment & Plan (05/03/2022 8:58 AM SENIOR PROJECT ARCHITECT): Mammogram order provided as it is due Assessment & Plan (03/24/2021 2:23 PM CDT): Mammogram order provided Obesity (BMI 30-39.9) 03/22/20212021 Assessment & Plan (03/22/2021 2:29 PM CDT): Obesity is unchanged. Discussed the patient's BMI. The BMI is above average. BMI management plan is completed. BMI Follow-up includes: nutrition counseling, exercise counseling and education provided. BMI 30.0-30.9,adult 03/22/2021 07/27/19 22 Assessment & Plan (03/22/2021 2:29 PM CDT): Obesity is unchanged. Discussed the patient's BMI. The BMI is above average. BMI management plan is completed. BMI Follow-up includes: nutrition counseling, exercise counseling and education provided. BMI 29.0-29.9,adult 02/28/2021 03/22/20 21 Assessment & Plan (02/28/2021 9:51 AM CDT): Weight/BMI is in healthy range. Continue healthy lifestyle to maintain. Skin necrosis 02/27/2021 03/24/2021 Assessment & Plan (02/28/2021 11:13 AM CDT): appt made with reinier massey - she will go today for evaluation of the necrosis Advised starting clindamycin po from er Advised f/u in the next week with pcp, sooner if worsening Assessment & Plan (02/27/2021 1:33 PM CDT): Patient directed to [facility] er for further evaluation and treatment. Report called to ER by provider. Nausea 02/27/2021 05/03/2022 Colon cancer screening 11/05/202012/09 Assessment & Plan (12/04/2022 9:18 AM CDT): Encouraged colon cancer screening noting early detection is important. . Had Cologuard at home but did not complete it. Assessment & Plan (05/03/2022 8:56 AM SENIOR PROJECT ARCHITECT): Encouraged to complete the Cologuard. Assessment & Plan (03/24/2021 2:17 PM CDT): Has Cologuard at home. Encouraged her to complete and return to the lab. Assessment & Plan (11/05/2020 4:27 PM CDT): Will place cologuard order Diabetes mellitus screening 11/05/2020 03/24/2021 Assessment & Plan (03/24/2021 2:17 PM CDT): Check labs Assessment & Plan (11/05/2020 4:27 PM CDT): Check labs Lipid screening 11/05/2020 03/24/2021 Assessment & Plan (11/05/2020 4:27 PM CDT): Check labs Fatigue 11/05/2020 03/24/2021 Assessment & Plan (11/05/2020 4:27 PM CDT): Probably multifactorial. Check labs and followup to re-evaluate Need for Tdap vaccination 11/05/2020 Assessment & Plan (11/05/2020 4:27 PM CDT): Tdap updated in office. Annual physical exam 11/05/2020 021 Assessment & Plan (11/05/2020 4:26 PM CDT): Encouraged healthy lifestyle, good nutrition and exercise. Encouraged Calcium and Vitamin D and weight bearing exercise for bone health. Reviewed immunizations Reviewed age appropirate screenings. BMI 30.0-30.9,adult 10/25/2020 02/29/20 21 Assessment & Plan (02/27/2021 1:04 PM CDT): Obesity is unchanged. Discussed the patient's BMI. The BMI is above average. BMI management plan is completed. BMI Follow-up includes: nutrition counseling, exercise counseling and education provided. Assessment & Plan (10/25/2020 10:33 AM CDT): Obesity is unchanged. Discussed the patient's BMI. The BMI is above average. BMI management plan is completed. BMI Follow-up includes: nutrition counseling, exercise counseling and education provided. Acute vaginitis 12/02/2018 12/10/2023 Increased frequency of urination 12/02/2018 12/10/2023 Assessment & Plan (05/21/2022 12:13 PM SENIOR PROJECT ARCHITECT): Check urine culture Well adult health check 01/11/201301/2022 Encounter for screening for malignant neoplasm of colon 09/18/2010 05/03/2022 Immunizations Immunization Administration Dates Next Due Influenza, Quadrivalent, Hig h Dose, Preservative Free, Intrr 04/07/2023 Influenza, Quadrivalent, Spl it, Preservative Free, Intramuscular 02/19/2021,02/02/2020 Influenza, Unspecified 01/15/2024,2021,02/20/2021,02/01 Moderna SARS-CoV-2 Monovalen t Vaccination (12+ YRS) 08/16/2020,08/16/2020,07/19/2020,07/19 Pneumococcal Conjugate Pcv20 05/03/2022 Tdap 10/25/2020 ZOSTER Recombinant 11/21/2017 Social History Tobacco Use Types Packs/Day Years Used Date Smoking Tobacco: Never Smokeless Tobacco: Never Tobacco Cessation:Counseling Given: Not Answered Alcohol Use Standard Drinks/Week Comments Not Currently 0 (1 standard drink = 0.6 oz pur e alcohol) [facility] Utilities Answer Date Recorded In the past 12 months has Retroficiency, gas, oil, or water [employer] threatened to shut off services in your [...] week 04/28/2024 How often do you attend [facility] or yazidism services? Never 04/28/2024 Do you belong to any clubs o r organizations such as orthodoxy groups, unions, fraternal or athletic groups, or [...] any time in the past 12 m [facility], were you homeless or living in a fci (including now)? No 04/28/2024 Personal Safety Answer Date Recorded Have you ever been in or are you currently in a harmful physical or emotional relationship or is someone making you feel afraid or unsafe? Denies 08/31/2024 Comments No Sex and Gender Information Value Date Recorded Sex Assigned at Not on file Legal Sex Female 12:20 AM SENIOR PROJECT ARCHITECT Gender Identity Not on file Sexual Orientation Not on file Last Filed Vital Signs Vital Sign Reading Time Taken Comments Blood Pressure 128/80 10/13/2024 8:59 AM CDT Pulse 78 10/13/2024 10:04 AM CDT Post Neb Tx Temperature 36.6 C (97.9 F) 10/13/2024 8:59 AM CDT Respiratory Rate 18 10/13/2024 8:59 AM CDT Oxygen Saturation 99% 10/13/2024 10:04 AM CDT Post Neb Tx Inhaled Oxygen Concentration - - Weight 77.6 kg (171 lb) 10/13/2024 8:59 AM CDT Height 157.5 cm (5' 2) 10/13/2024 8:59 AM CDT Body Mass Index 31.28 10/13/2024 8:59 AM CDT Plan of Treatment Not on file Medical Devices Implanted Type Area Sagger Filler Device Identifier Shelf Expiration Date Model / Serial / Lot Plate N/A: Neck Description:Cervical spine Procedures Procedure Name Priority Date/Time Associated Diagnosis Comments POCT RESPIRATORY SYNCYTIAL VIRUS Routine 10/13/2024 9:28 AM CDT Lower respiratory infection POCT INFLUENZA A/B Routine 10/13/2024 9: 28 AM CDT Lower respiratory infection COVID-19 POC Routine 10/13/2024 9:28 AM CDT Lower respiratory infection US BREAST BILATERAL LIMITED Schedule Routine, Read Routine (OP Routine) 09/15/2024 2:59 PM CDT Mass of breast, unspecified laterality Mastodynia DIAGNOSTIC MAMMOGRAM BILATERAL W JASON Schedule Routine, Read Routine (OP Routine) 09/15/2024 2:34 PM CDT Mass of breast, unspecified laterality Mastodynia CT RECON LUMBAR SPINE WO CONTRAST ED 08/31/2024 5:[address] ABDOMEN PELVIS WO CONTRAST ED 08/31/2024 5:07 PM CDT URINALYSIS, MICROSCOPIC ONLY STAT 08/31/2024 3:52 PM CDT URINALYSIS AND REFLEX TO MICROSCOPIC AND CULTURE STAT 08/31/2024 3:52 PM CDT EGFR STAT 08/31/2024 3:51 PM CDT DIFFERENTIAL AUTO STAT 08/31/2024 3:5 1 PM CDT LIPASE STAT 08/31/2024 3:51 PM CDT COMPREHENSIVE METABOLIC PANEL STAT 08/31/2024 3:51 PM CDT CBC WITH AUTO DIFFERENTIAL STAT 08/31/2024 3:51 PM CDT POCT URINALYSIS DIPSTICK Routine 08/30/2024 3:05 PM CDT Dysuria URINE CULTURE Routine 08/30/2024 2:57 PM CDT Dysuria DIFFERENTIAL AUTO STAT 07/29/2024 4:2 5 PM SENIOR PROJECT ARCHITECT CBC WITH AUTO DIFFERENTIAL STAT 07/29/2024 4:25 PM SENIOR PROJECT ARCHITECT EGFR STAT 07/29/2024 4:16 PM SENIOR PROJECT ARCHITECT SEPSIS LACTATE WITH REFLEX STAT 07/29/2024 4:16 PM SENIOR PROJECT ARCHITECT COMPREHENSIVE METABOLIC PANEL STAT 07/29/2024 4:16 PM SENIOR PROJECT ARCHITECT XR CHEST PA LATERAL 2 VIEWS ED 07/29/2024 3:52 PM SENIOR PROJECT ARCHITECT RESPIRATORY PATHOGEN PANEL STAT 07/29/2024 3:28 PM SENIOR PROJECT ARCHITECT URINALYSIS, MICROSCOPIC ONLY STAT 07/26/2024 3:51 PM SENIOR PROJECT ARCHITECT URINE CULTURE STAT 07/26/2024 3:51 PM SENIOR PROJECT ARCHITECT URINALYSIS AND REFLEX TO MICROSCOPIC AND CULTURE STAT 07/26/2024 3:51 PM SENIOR PROJECT ARCHITECT ECG 12-LEAD STAT 07/26/2024 3:21 PM SENIOR PROJECT ARCHITECT EGFR STAT 07/26/2024 11:55 AM SENIOR PROJECT ARCHITECT DIFFERENTIAL AUTO STAT 07/26/2024 11: 55 AM SENIOR PROJECT ARCHITECT COMPREHENSIVE METABOLIC PANEL STAT 07/26/2024 11:55 AM SENIOR PROJECT ARCHITECT CBC WITH AUTO DIFFERENTIAL STAT 07/26/2024 11:55 AM SENIOR PROJECT ARCHITECT CT HEAD WO CONTRAST ED 07/26/2024 1 1:28 AM SENIOR PROJECT ARCHITECT DEXA AXIAL SKELETON BONE DENSITY 1 OR MORE SITES Schedule Routine, Read Routine (OP Routine) 04/18/2021 1:33 PM SENIOR PROJECT ARCHITECT Menopause from Last 3 Months or Most Recently Relevant to Health Maintenance Results * COVID-19 POC (10/13/2024 9:28 AM CDT) Pathologist [facility] COVID-19 Ag POC (BD Veritor) Presumptive Negative Presumptive Negative, Invalid [facility] Nasal 10/13/2024 9:28 AM CDT us Suha Guidry NP POINT OF CARE TEST ORDERABLES Fi nal Result [facility] [address] [place] [address], [facility] * POCT respiratory syncytial virus (10/13/2024 9:28 AM CDT) Pathologist [facility] RSV Rapid Ag negative Nasal 10/13/2024 9:28 AM CDT us Suha Guidry NP POINT OF CARE TEST ORDERABLES Fi nal Result * POCT influenza A/B (10/13/2024 9:28 AM CDT) Rapid Influenza A Ag Negative Negative, Invalid Rapid Influenza B Ag Negative Negative, Invalid Nasal 10/13/2024 9:28 AM CDT us Suha Guidry NP POINT OF CARE TEST ORDERABLES Fi nal Result * US Breast Bilateral Limited (09/15/2024 2:59 PM CDT) Anatomical Region Laterality Modality Breast Bilateral Ultrasound 09/15/2024 4:07 PM CDT Impressions 09/15/2024 4:07 PM CDT No imaging findings to suggest malignancy are seen. Clinically correlate regarding asymmetric nipple retraction. Negative for inconclusive breast imaging studies should not deter biopsy if there are clinically suspicious palpable abnormalities. The patient may return to screening mammography as per ACR guidelines. OVERALL FINAL ASSESSMENT: [id number] Electronically signed by: Coleen Roblero M.D. Narrative 09/15/2024 4:07 PM CDT EXAMINATION: BILATERAL DIGITAL DIAGNOSTIC MAMMOGRAM AND DIGITAL BREAST TOMOSYNTHESIS; BILATERAL BREAST SONOGRAM HISTORY: Palpable abnormalities at 3:00 on the right and 9:00 on the left. Asymmetric nipple retraction on the right. COMPARISON: None TECHNIQUE: Full field digital mammographic views of the bilateral breast(s) were performed, including computer aided detection (CAD) and digital breast tomosynthesis (DBT). Directed ultrasound evaluation of the bilateral breast(s) was performed. BREAST PARENCHYMAL COMPOSITION: The breasts are heterogeneously dense, which may obscure small masses. MAMMOGRAM FINDINGS: There are no suspicious masses. No suspicious calcifications are seen. There is no unexplained architectural distortion. There is no skin thickening seen. There are no mammographically abnormal lymph nodes seen in the axillae or elsewhere. There appears to be bilateral nipple retraction, right greater than left. However, this appears mammographically stable. ULTRASOUND FINDINGS: Sonography through the right retroareolar region, 3:00 on the right, and 9:00 on the left demonstrates no cystic or solid masses. There is mild ductal ectasia in the right retroareolar region. [facility] [facility] [place] Final Result * Diagnostic Mammogram Bilateral W Jason (09/15/2024 2:34 PM CDT) Anatomical Region Laterality Modality Breast Bilateral Mammography 09/15/2024 4:07 PM CDT Impressions 09/15/2024 4:07 PM CDT No imaging findings to suggest malignancy are seen. Clinically correlate regarding asymmetric nipple retraction. Negative for inconclusive breast imaging studies should not deter biopsy if there are clinically suspicious palpable abnormalities. The patient may return to screening mammography as per ACR guidelines. OVERALL FINAL ASSESSMENT: [id number] Electronically signed by: Coleen Roblero M.D. Narrative 09/15/2024 4:07 PM CDT EXAMINATION: BILATERAL DIGITAL DIAGNOSTIC MAMMOGRAM AND DIGITAL BREAST TOMOSYNTHESIS; BILATERAL BREAST SONOGRAM HISTORY: Palpable abnormalities at 3:00 on the right and 9:00 on the left. Asymmetric nipple retraction on the right. COMPARISON: None TECHNIQUE: Full field digital mammographic views of the bilateral breast(s) were performed, including computer aided detection (CAD) and digital breast tomosynthesis (DBT). Directed ultrasound evaluation of the bilateral breast(s) was performed. BREAST PARENCHYMAL COMPOSITION: The breasts are heterogeneously dense, which may obscure small masses. MAMMOGRAM FINDINGS: There are no suspicious masses. No suspicious calcifications are seen. There is no unexplained architectural distortion. There is no skin thickening seen. There are no mammographically abnormal lymph nodes seen in the axillae or elsewhere. There appears to be bilateral nipple retraction, right greater than left. However, this appears mammographically stable. ULTRASOUND FINDINGS: Sonography through the right retroareolar region, 3:00 on the right, and 9:00 on the left demonstrates no cystic or solid masses. There is mild ductal ectasia in the right retroareolar region. [facility] [facility] [place] Final Result * CT Recon Lumbar Spine WO Contrast (08/31/2024 5:07 PM CDT) Anatomical Region Laterality Modality Spine N/A Computed Tomogra phy 08/31/2024 5:35 PM CDT Addenda Addendum by Musa Gomez MD on 10/04/2024 9:30 AM CDT ADDENDUM: This addendum report supersedes the original report dated 08/31/2024 Technique should include: Pertinent images of the abdomen and pelvis were used to make recons for the lumbar spine imaging. END OF ADDENDUM REPORT THIS IS AN ELECTRONICALLY VERIFIED FINAL REPORT 10/04/2024 9:30 AM Addendum Electronically signed by Musa DAVENPORT Report ID: [id number] Reading Location: [id number] [facility] 08/31/2024 5:50 PM CDT EXAM DESCRIPTION: CT RECON LUMBAR SPINE WO CONTRAST; CT ABDOMEN PELVIS WO CONTRAST REASON FOR STUDY: Low back pain, no red flags, no prior management Patient states lower lumbar back pain x 1 week but worsening the last 2 days. Was seen by PCP for possible UTI and started on abx yesterday. Endorses blood in urine with increased pain and nausea. Recently dx with lupus, and is concerned her kidneys are being damaged. Hx: CKD, Lupus, HTN ; low back pain, hematuria, nausea Patient states lower lumbar back pain x 1 week but worsening the last 2 days. Was seen by PCP for possible UTI and started on abx yesterday. Endorses blood in urine with increased pain and nausea. Recently dx with lupus, and is concerned her kidneys are being damaged. Hx: CKD, Lupus, HTN Surg Hx: Cholecystectomy, Hysterectomy TECHNIQUE: CT scan of the abdomen and pelvis performed without intravenous and without oral contrast using helical scanning technique. Reconstructed coronal and sagittal MPR images reviewed. All images stored on PACS. Automated exposure control was used as a dose optimization technique for this examination. COMPARISON: Lumbar spine MRI from 12/13/2010 FINDINGS: The sensitivity for detection of visceral lesions is diminished without the use of intravenous contrast. LOWER CHEST: Mild cardiomegaly. 2 mm left lower lobe pulmonary nodule on image 23 LIVER: Normal size. No hepatic surface nodularity seen. No noncontrast evidence for focal liver lesion. GALLBLADDER: Surgically absent. BILE DUCTS: Dilation of the common duct with distal tapering is likely related to reservoir effect. No intrahepatic biliary ductal dilatation. SPLEEN: Normal size. No focal lesions. PANCREAS: No identified cystic or solid masses. No significant calcifications. No adjacent inflammation or peripancreatic fluid collections. Pancreatic duct not dilated. ADRENALS: Normal. KIDNEYS/URINARY TRACT: No identified significant cystic or solid masses. No stones. No hydronephrosis or hydroureter. Urinary bladder is unremarkable. Few pelvic phleboliths are noted GI: Stool throughout the colon would be compatible with the history of constipation. No wall thickening. Appendix is normal. Visualized esophagus is unremarkable. The stomach appears unremarkable. Small bowel is normal in course and in caliber and without wall thickening or evidence of obstruction. PERITONEUM: No ascites or free air. RETROPERITONEUM: No mass or adenopathy. REPRODUCTIVE: Uterus is absent. No obvious gross adnexal lesion is seen. VASCULATURE: Mild athero sclerotic calcification. No aneurysm seen. MUSCULOSKELETAL: Please see below for detailed assessment of the lumbar spine. Mild bilateral hip osteoarthritis. OTHER: Small fat containing umbilical hernia. Few nonspecific nodular foci just deep to the skin in the anterior abdominal wall would be compatible with subcutaneous injections, if there is a an appropriate clinical history. Lumbar spine: Mild straightening of the normal lumbar lordosis. No spondylolisthesis.. Multilevel degenerative disc disease, most pronounced and nsjf-df-paxioehm at L3-L4. Vertebral body heights are normal and no evidence of recent fracture is seen. T11-12: Minimal disc bulge. Normal facet joints.. Mild bilateral osseous neural foraminal stenosis. T12-L1: No obvious disc bulge. Normal facet joints. No significant osseous neural foraminal or spinal canal stenosis L1-L2: Mild disc bulge. Normal facet joints. No significant osseous spinal canal or neural foraminal stenosis. L2-L3: Mild disc bulge. Mild bilateral facet arthropathy. No significant osseous neural foraminal or spinal canal stenosis L3-L4: Moderate disc bulge with superimposed central disc protrusion. Cuug-hi-trnivmzg left facet arthropathy. Ligamentum flavum thickening. Grossly moderate appearing spinal canal stenosis. Mild appearing bilateral neural foraminal stenosis L4-L5: Disc bulge. Ligamentum flavum thickening. Xqfb-mj-cydtjcuy left and mild right facet arthropathy. Mild appearing bilateral neural foraminal stenosis. At least moderate spinal canal stenosis. L5-S1: Disc bulge. Severe right and moderate left facet arthropathy. Xgnl-nx-mioguzux bilateral neural foraminal stenosis. Mild appearing spinal canal stenosis IMPRESSION: No acute findings in the abdomen or pelvis. Multilevel lumbar degenerative disc and joint disease, as detailed level by level above. There is at least moderate spinal canal stenosis at L3-L4 and L4-L5. Stenosis would be better evaluated by MRI. Stool throughout the colon would be compatible with a history of constipation. THIS IS AN ELECTRONICALLY VERIFIED FINAL REPORT 08/31/2024 5:50 PM - Electronically signed by Musa DAVENPORT T: Report ID: [id number] Reading Location: [id number] Procedure Note Musa Gomez MD - 08/31/2024 EXAM DESCRIPTION: CT RECON LUMBAR SPINE WO CONTRAST; CT ABDOMEN PELVISWO CONTRAST REASON FOR STUDY: Low back pain, no red flags, no prior management Patient states lower lumbar back pain x 1 week but worsening the last 2days. Was seen by PCP for possible UTI and started on abx yesterday. Endorsesblood in urine with increased pain and nausea. Recently dx with lupus, and is concerned her kidneys are being damaged. Hx: CKD, Lupus, HTN ; low back pain, hematuria, nausea Patient states lower lumbar back pain x 1 week but worsening the last 2days. Was seen by PCP for possible UTI and started on abx yesterday. Endorsesblood in urine with increased pain and nausea. Recently dx with lupus, and is concerned her kidneys are being damaged. Hx: CKD, Lupus, HTN SurgHx: Cholecystectomy, Hysterectomy TECHNIQUE: CT scan of the abdomen and pelvis performed without intravenousand without oral contrast using helical scanning technique. Reconstructed coronal and sagittal MPR images reviewed. All images stored on PACS.Automated exposure control was used as a dose optimization technique for this examination. COMPARISON: Lumbar spine MRI from 12/13/2010 FINDINGS: The sensitivity for detection of visceral lesions is diminished without the use of intravenous contrast. LOWER CHEST: Mild cardiomegaly. 2 mm left lower lobe pulmonary noduleon image 23 LIVER: Normal size. No hepatic surface nodularity seen. No noncontrast evidence for focal liver lesion. GALLBLADDER: Surgically absent. BILE DUCTS: Dilation of the common duct with distal tapering is likely related to reservoir effect. No intrahepatic biliary ductal dilatation. SPLEEN: Normal size. No focal lesions. PANCREAS: No identified cystic or solid masses. No significant calcifications. No adjacent inflammation or peripancreatic fluidcollections. Pancreatic duct not dilated. ADRENALS: Normal. KIDNEYS/URINARY TRACT: No identified significant cystic or solid masses.No stones. No hydronephrosis or hydroureter. Urinary bladder isunremarkable. Few pelvic phleboliths are noted GI: Stool throughout the colon would be compatible with the history of constipation. No wall thickening. Appendix is normal. Visualizedesophagus is unremarkable. The stomach appears unremarkable. Small bowel is normalin course and in caliber and without wall thickening or evidence ofobstruction. PERITONEUM: No ascites or free air. RETROPERITONEUM: No mass or adenopathy. REPRODUCTIVE: Uterus is absent. No obvious gross adnexal lesion isseen. VASCULATURE: Mild athero sclerotic calcification. No aneurysm seen. MUSCULOSKELETAL: Please see below for detailed assessment of the lumbarspine. Mild bilateral hip osteoarthritis. OTHER: Small fat containing umbilical hernia. Few nonspecific nodularfoci just deep to the skin in the anterior abdominal wall would be compatiblewith subcutaneous injections, if there is a an appropriate clinical history. Lumbar spine: Mild straightening of the normal lumbar lordosis. No spondylolisthesis.. Multilevel degenerative disc disease, most pronounced and hnzr-cf-ztrivjlpws L3-L4. Vertebral body heights are normal and no evidence of recentfracture is seen. T11-12: Minimal disc bulge. Normal facet joints.. Mild bilateral osseous neural foraminal stenosis. T12-L1: No obvious disc bulge. Normal facet joints. No significantosseous neural foraminal or spinal canal stenosis L1-L2: Mild disc bulge. Normal facet joints. No significant osseousspinal canal or neural foraminal stenosis. L2-L3: Mild disc bulge. Mild bilateral facet arthropathy. No significant osseous neural foraminal or spinal canal stenosis L3-L4: Moderate disc bulge with superimposed central disc protrusion. Pqhu-uu-xerlvcyi left facet arthropathy. Ligamentum flavum thickening. Grossly moderate appearing spinal canal stenosis. Mild appearingbilateral neural foraminal stenosis L4-L5: Disc bulge. Ligamentum flavum thickening. Vxxd-cl-julfvecc leftand mild right facet arthropathy. Mild appearing bilateral neural foraminal stenosis. At least moderate spinal canal stenosis. L5-S1: Disc bulge. Severe right and moderate left facet arthropathy. Cyvu-et-qgsrtnns bilateral neural foraminal stenosis. Mild appearingspinal canal stenosis IMPRESSION: No acute findings in the abdomen or pelvis. Multilevel lumbar degenerative disc and joint disease, as detailed levelby level above. There is at least moderate spinal canal stenosis at L3-L4 and L4-L5. Stenosis would be better evaluated by MRI. Stool throughout the colon would be compatible with a history ofconstipation. THIS IS AN ELECTRONICALLY VERIFIED FINAL REPORT 08/31/2024 5:50 PM - Electronically signed by Musa DAVENPORT T: Report ID: [id number] Reading Location: [id number] [facility] CT PROCEDURES Edited Res ult - Final * CT Abdomen Pelvis WO Contrast (08/31/2024 5:07 PM CDT) Anatomical Region Laterality Modality Body N/A Computed Tomogra phy 08/31/2024 5:35 PM CDT Addenda Addendum by Musa Gomez MD on 10/04/2024 9:30 AM CDT ADDENDUM: This addendum report supersedes the original report dated 08/31/2024 Technique should include: Pertinent images of the abdomen and pelvis were used to make recons for the lumbar spine imaging. END OF ADDENDUM REPORT THIS IS AN ELECTRONICALLY VERIFIED FINAL REPORT 10/04/2024 9:30 AM Addendum Electronically signed by Musa Gomez M.D. MZ Report ID: [id number] Reading Location: [id number] Narrative 08/31/2024 5:50 PM CDT EXAM DESCRIPTION: CT RECON LUMBAR SPINE WO CONTRAST; CT ABDOMEN PELVIS WO CONTRAST REASON FOR STUDY: Low back pain, no red flags, no prior management Patient states lower lumbar back pain x 1 week but worsening the last 2 days. Was seen by PCP for possible UTI and started on abx yesterday. Endorses blood in urine with increased pain and nausea. Recently dx with lupus, and is concerned her kidneys are being damaged. Hx: CKD, Lupus, HTN ; low back pain, hematuria, nausea Patient states lower lumbar back pain x 1 week but worsening the last 2 days. Was seen by PCP for possible UTI and started on abx yesterday. Endorses blood in urine with increased pain and nausea. Recently dx with lupus, and is concerned her kidneys are being damaged. Hx: CKD, Lupus, HTN Surg Hx: Cholecystectomy, Hysterectomy TECHNIQUE: CT scan of the abdomen and pelvis performed without intravenous and without oral contrast using helical scanning technique. Reconstructed coronal and sagittal MPR images reviewed. All images stored on PACS. Automated exposure control was used as a dose optimization technique for this examination. COMPARISON: Lumbar spine MRI from 12/13/2010 FINDINGS: The sensitivity for detection of visceral lesions is diminished without the use of intravenous contrast. LOWER CHEST: Mild cardiomegaly. 2 mm left lower lobe pulmonary nodule on image 23 LIVER: Normal size. No hepatic surface nodularity seen. No noncontrast evidence for focal liver lesion. GALLBLADDER: Surgically absent. BILE DUCTS: Dilation of the common duct with distal tapering is likely related to reservoir effect. No intrahepatic biliary ductal dilatation. SPLEEN: Normal size. No focal lesions. PANCREAS: No identified cystic or solid masses. No significant calcifications. No adjacent inflammation or peripancreatic fluid collections. Pancreatic duct not dilated. ADRENALS: Normal. KIDNEYS/URINARY TRACT: No identified significant cystic or solid masses. No stones. No hydronephrosis or hydroureter. Urinary bladder is unremarkable. Few pelvic phleboliths are noted GI: Stool throughout the colon would be compatible with the history of constipation. No wall thickening. Appendix is normal. Visualized esophagus is unremarkable. The stomach appears unremarkable. Small bowel is normal in course and in caliber and without wall thickening or evidence of obstruction. PERITONEUM: No ascites or free air. RETROPERITONEUM: No mass or adenopathy. REPRODUCTIVE: Uterus is absent. No obvious gross adnexal lesion is seen. VASCULATURE: Mild athero sclerotic calcification. No aneurysm seen. MUSCULOSKELETAL: Please see below for detailed assessment of the lumbar spine. Mild bilateral hip osteoarthritis. OTHER: Small fat containing umbilical hernia. Few nonspecific nodular foci just deep to the skin in the anterior abdominal wall would be compatible with subcutaneous injections, if there is a an appropriate clinical history. Lumbar spine: Mild straightening of the normal lumbar lordosis. No spondylolisthesis.. Multilevel degenerative disc disease, most pronounced and eyze-lw-lyxeqvaw at L3-L4. Vertebral body heights are normal and no evidence of recent fracture is seen. T11-12: Minimal disc bulge. Normal facet joints.. Mild bilateral osseous neural foraminal stenosis. T12-L1: No obvious disc bulge. Normal facet joints. No significant osseous neural foraminal or spinal canal stenosis L1-L2: Mild disc bulge. Normal facet joints. No significant osseous spinal canal or neural foraminal stenosis. L2-L3: Mild disc bulge. Mild bilateral facet arthropathy. No significant osseous neural foraminal or spinal canal stenosis L3-L4: Moderate disc bulge with superimposed central disc protrusion. Dmuu-ft-rjuduzlp left facet arthropathy. Ligamentum flavum thickening. Grossly moderate appearing spinal canal stenosis. Mild appearing bilateral neural foraminal stenosis L4-L5: Disc bulge. Ligamentum flavum thickening. Ebsw-mr-jpzemewk left and mild right facet arthropathy. Mild appearing bilateral neural foraminal stenosis. At least moderate spinal canal stenosis. L5-S1: Disc bulge. Severe right and moderate left facet arthropathy. Zhfd-ok-gbmervbq bilateral neural foraminal stenosis. Mild appearing spinal canal stenosis IMPRESSION: No acute findings in the abdomen or pelvis. Multilevel lumbar degenerative disc and joint disease, as detailed level by level above. There is at least moderate spinal canal stenosis at L3-L4 and L4-L5. Stenosis would be better evaluated by MRI. Stool throughout the colon would be compatible with a history of constipation. THIS IS AN ELECTRONICALLY VERIFIED FINAL REPORT 08/31/2024 5:50 PM - Electronically signed by Musa Gomez M.D. MZ T: Report ID: [id number] Reading Location: [id number] Procedure Note Musa Gomez MD - 08/31/2024 EXAM DESCRIPTION: CT RECON LUMBAR SPINE WO CONTRAST; CT ABDOMEN PELVISWO CONTRAST REASON FOR STUDY: Low back pain, no red flags, no prior management Patient states lower lumbar back pain x 1 week but worsening the last 2days. Was seen by PCP for possible UTI and started on abx yesterday. Endorsesblood in urine with increased pain and nausea. Recently dx with lupus, and is concerned her kidneys are being damaged. Hx: CKD, Lupus, HTN ; low back pain, hematuria, nausea Patient states lower lumbar back pain x 1 week but worsening the last 2days. Was seen by PCP for possible UTI and started on abx yesterday. Endorsesblood in urine with increased pain and nausea. Recently dx with lupus, and is concerned her kidneys are being damaged. Hx: CKD, Lupus, HTN SurgHx: Cholecystectomy, Hysterectomy TECHNIQUE: CT scan of the abdomen and pelvis performed without intravenousand without oral contrast using helical scanning technique. Reconstructed coronal and sagittal MPR images reviewed. All images stored on PACS.Automated exposure control was used as a dose optimization technique for this examination. COMPARISON: Lumbar spine MRI from 12/13/2010 FINDINGS: The sensitivity for detection of visceral lesions is diminished without the use of intravenous contrast. LOWER CHEST: Mild cardiomegaly. 2 mm left lower lobe pulmonary noduleon image 23 LIVER: Normal size. No hepatic surface nodularity seen. No noncontrast evidence for focal liver lesion. GALLBLADDER: Surgically absent. BILE DUCTS: Dilation of the common duct with distal tapering is likely related to reservoir effect. No intrahepatic biliary ductal dilatation. SPLEEN: Normal size. No focal lesions. PANCREAS: No identified cystic or solid masses. No significant calcifications. No adjacent inflammation or peripancreatic fluidcollections. Pancreatic duct not dilated. ADRENALS: Normal. KIDNEYS/URINARY TRACT: No identified significant cystic or solid masses.No stones. No hydronephrosis or hydroureter. Urinary bladder isunremarkable. Few pelvic phleboliths are noted GI: Stool throughout the colon would be compatible with the history of constipation. No wall thickening. Appendix is normal. Visualizedesophagus is unremarkable. The stomach appears unremarkable. Small bowel is normalin course and in caliber and without wall thickening or evidence ofobstruction. PERITONEUM: No ascites or free air. RETROPERITONEUM: No mass or adenopathy. REPRODUCTIVE: Uterus is absent. No obvious gross adnexal lesion isseen. VASCULATURE: Mild athero sclerotic calcification. No aneurysm seen. MUSCULOSKELETAL: Please see below for detailed assessment of the lumbarspine. Mild bilateral hip osteoarthritis. OTHER: Small fat containing umbilical hernia. Few nonspecific nodularfoci just deep to the skin in the anterior abdominal wall would be compatiblewith subcutaneous injections, if there is a an appropriate clinical history. Lumbar spine: Mild straightening of the normal lumbar lordosis. No spondylolisthesis.. Multilevel degenerative disc disease, most pronounced and annu-ql-nepydzwwpw L3-L4. Vertebral body heights are normal and no evidence of recentfracture is seen. T11-12: Minimal disc bulge. Normal facet joints.. Mild bilateral osseous neural foraminal stenosis. T12-L1: No obvious disc bulge. Normal facet joints. No significantosseous neural foraminal or spinal canal stenosis L1-L2: Mild disc bulge. Normal facet joints. No significant osseousspinal canal or neural foraminal stenosis. L2-L3: Mild disc bulge. Mild bilateral facet arthropathy. No significant osseous neural foraminal or spinal canal stenosis L3-L4: Moderate disc bulge with superimposed central disc protrusion. Rukm-bo-iveqjnod left facet arthropathy. Ligamentum flavum thickening. Grossly moderate appearing spinal canal stenosis. Mild appearingbilateral neural foraminal stenosis L4-L5: Disc bulge. Ligamentum flavum thickening. Zxdl-jn-jfzofofm leftand mild right facet arthropathy. Mild appearing bilateral neural foraminal stenosis. At least moderate spinal canal stenosis. L5-S1: Disc bulge. Severe right and moderate left facet arthropathy. Dnrr-mk-twhdiyav bilateral neural foraminal stenosis. Mild appearingspinal canal stenosis IMPRESSION: No acute findings in the abdomen or pelvis. Multilevel lumbar degenerative disc and joint disease, as detailed levelby level above. There is at least moderate spinal canal stenosis at L3-L4 and L4-L5. Stenosis would be better evaluated by MRI. Stool throughout the colon would be compatible with a history ofconstipation. THIS IS AN ELECTRONICALLY VERIFIED FINAL REPORT 08/31/2024 5:50 PM - Electronically signed by Musa Gomez M.D. MZ T: Report ID: [id number] Reading Location: [place] [id number] [address] [facility] [address] PROCEDURES Edited Res ult - Final * (ABNORMAL) Urinalysis reflex to microscopic and culture Urine (08/31/2024 3:52 PM CDT) Color, ur Yellow Yellow Clarity, ur Clear Clear [facility] Specific gravity, ur 1.027 1.003 - 1.030 [facility] pH, urine 5.5 [facility] Comment: Interpretive Data U rine pH is affected by diet, medications, systemic acid-base disturbances, and renal tubular function. pH may affect urinary stone formation. For example, urine pH below 6.0 may help reduce the tendency for calcium phosphate stones and pH greater than 6.0 may reduce the tendency for uric acid stone formation. Source: [facility] Current Interpretive Data was last revised on 2017 Protein, ur ql Negative Negative [facility] Glucose, ur ql Negative Negative [facility] Ketones, ur Negative Negative [facility] Bilirubin, ur Negative Negative [facility] Blood, ur Negative Negative [facility] Urobilinogen, ur <2.0 <2.0 mg/dL [facility] Nitrite, ur Negative Negative [facility] Leukocyte esterase, ur 2+(A) Negative [facility] UA reflex comment Reflex to microscopic UA will be performed. [facility] Urine 08/31/2024 3:52 PM CDT 08/31/2024 3:56 PM CDT [facility] MICROBIOLOGY - GENERAL O RDERABLES Final Result [place] [id number] [facility] [place] [address] * (ABNORMAL) Urinalysis, microscopic only (08/31/2024 3:52 PM CDT) WBC, ur 0-5 0 - 5 /HPF RBC, ur 0-2 0 - 2 /HPF [facility] Epithelial cells, squamous, ur 1-5 0 - 5 /HPF [facility] Bacteria, ur Trace(A) [facility] Mucous, ur Present(A) [facility] Culture Reflex Comment Reflex conditions for urine culture (WBC >10) not met. [facility] Urine 08/31/2024 3:52 PM CDT 08/31/2024 3:56 PM CDT [facility] URINE ORDERABLES Final R esult Performing Organization Address [facility] de Phone Number JOE [address] [address] * (ABNORMAL) eGFR (08/31/2024 3:51 PM CDT) Pathologist [facility] eGFR 52(L) >=60 mL/min/1. 73 m2 Comment: Interpretive Data Reference Interval Normal >/= 90 mL/min/1.73m2 Mildly decreased* 60 - 89 mL/min/1.73m2 Mildly to moderately decreased 45 - 59 mL/min/1.73m2 Moderately to severely decreased 30 - 44 mL/min/1.73m2 Severely decreased 15 - 29 mL/min/1.73m2 Kidney Failure < 15 mL/min/1.73m2 *Relative to young adult level Estimated glomerular filtration rate is determined by the 2020 CKD-EPI equation recommended by the National Kidney Foundation (A Unifying Approach to GFR Estimation: Recommendations of the NKF-ASK Task Force on Reassessing the Inclusion of Race in Diagnosing Kidney Disease, JASN 2020). The CKD-EPI equation should not be used for patients with unstable renal function and has not been validated in children and those over 70. Current interpretive data was last reviewed 2021. Blood 08/31/2024 3:51 PM CDT 08/31/2024 3:56 PM CDT [facility] BLOOD ORDERABLES Final R esult Performing Organization Address [facility] Co de Phone Number JOE [address] Department [place] [email or web address] [address] * Differential, auto (08/31/2024 3:51 PM CDT) Pathologist [facility] Neutrophil abs 4.18 1.50 - 6.50 K/cumm Imm gran abs 0.02 0.00 - 0.10 K/cumm [facility] Lymphocyte abs 1.00 0.80 - 3.30 K/cumm [facility] Monocyte abs 0.45 0.20 - 0.80 K/cumm [facility] Eosinophil abs 0.17 0.00 - 0.50 K/cumm [facility] Basophil abs 0.05 0.00 - 0.10 K/cumm [facility] Neutrophil pct 71.2 % [facility] Comment: Interpretive Data Percent cell count reference ranges are not reported, since discordance with absolute values may lead to misinterpretation of CBC data. Current Interpretive Data was last revised on 2017. Imm gran pct 0.3 % [facility] Comment: Interpretive Data Percent cell count reference ranges are not reported, since discordance with absolute values may lead to misinterpretation of CBC data. Current Interpretive Data was last revised on 2017. Lymphocyte pct 17.0 % [facility] Comment: Interpretive Data Percent cell count reference ranges are not reported, since discordance with absolute values may lead to misinterpretation of CBC data. Current Interpretive Data was last revised on 2017. Monocyte pct 7.7 % [facility] Comment: Interpretive Data Percent cell count reference ranges are not reported, since discordance with absolute values may lead to misinterpretation of CBC data. Current Interpretive Data was last revised on 2017. Eosinophil pct 2.9 % [facility] Comment: Interpretive Data Percent cell count reference ranges are not reported, since discordance with absolute values may lead to misinterpretation of CBC data. Current Interpretive Data was last revised on 2017. Basophil pct 0.9 % [facility] Comment: Interpretive Data Percent cell count reference ranges are not reported, since discordance with absolute values may lead to misinterpretation of CBC data. Current Interpretive Data was last revised on 2017. Blood 08/31/2024 3:51 PM CDT 08/31/2024 3:56 PM CDT us [facility] BLOOD ORDERABLES Final R esult [facility] [address] [facility] Department [place] [address] * (ABNORMAL) CBC with auto differential (08/31/2024 3:51 PM CDT) WBC 5.87 3.80 - 9.90 K/cumm Hgb 11.4(L) 11.9 - 15.5 g/dL [facility] Hct 34.9(L) 35.6 - 45.5 % [facility] Plt 224 150 - 400 K/cumm [facility] MPV 9.1 9.1 - 12.3 fL [facility] RBC 3.72(L) 3.90 - 5.20 M/cumm [facility] MCV 93.8 81.3 - 96.4 fL [facility] MCH 30.6 27.1 - 33.3 pg [facility] MCHC 32.7 32.3 - 35.7 g/dL [facility] RDW CV 11.9 11.1 - 14.9 % [facility] RDW SD 40.4 35.7 - 48.1 fL [facility] NRBC abs 0.00 0.00 - 0.01 K/cumm [facility] Blood Venous blood specimen / Unknown 08/31/2024 3:51 PM CDT 08/31/2024 3:56 PM CDT [facility] BLOOD ORDERABLES Final R esult Performing Organization Address [facility] Co de Phone Number [address] [place], [place] [id number] * Lipase (08/31/2024 3:51 PM CDT) [facility] Lipase 28 10 - 99 Units/L Blood Venous blood specimen / Unknown 08/31/2024 3:51 PM CDT 08/31/2024 3:56 PM CDT Aec [facility] LAB BLOOD ORDERABLES Final R esult Performing Organization Address City/[facility] Co de Phone Number [address] [employer] [address] * (ABNORMAL) Comprehensive metabolic panel (08/31/2024 3:51 PM CDT) [facility] Sodium 140 135 - 145 mmol/L Potassium, pl 4.1 3.3 - 4.9 mmol/L [facility] Chloride 102 97 - 110 mmol/L [facility] CO2 27 22 - 32 mmol/L [facility] Anion gap 11 2 - 15 mmol/L [facility] BUN 20 6 - 25 mg/dL [facility] Creatinine 1.14(H) 0.60 - 1.10 mg/dL [facility] Glucose 112 70 - 199 mg/dL [facility] Comment: Interpretive Data Fasting glucose >/= 126 mg/dl is diagnostic for diabetes. Fasting is defined as no caloric intake for at least 8 hours. Fasting glucose between 100 mg/dl to 125 mg/dl is diagnostic of prediabetes. In a patient with classic symptoms of hyperglycemia or hyperglycemic crisis, a random glucose >/= 200 mg/dl is diagnostic for diabetes. In the absence of unequivocal hyperglycemia, results should be confirmed by repeat testing. The classification and Diagnosis of Diabetes Diabetes Care 202; 46: S19-S40. Current interpretive data was last revised 2022. Calcium 9.1 8.5 - 10.3 mg/dL [facility] Bilirubin, total 0.3 0.1 - 1.2 mg/dL [facility] Protein, pl 6.8 6.5 - 8.5 g/dL [facility] Albumin 4.1 3.5 - 5.0 g/dL [facility] Alk phos 125 40 - 130 Units/L [facility] ALT 24 7 - 45 Units/L [facility] AST 21 10 - 45 Units/L [facility] Blood Venous blood specimen / Unknown 08/31/2024 3:51 PM CDT 08/31/2024 3:56 PM CDT [facility] BLOOD ORDERABLES Final R esult [facility] [address] [facility] Department [place] [address] * (ABNORMAL) POCT urinalysis dipstick (08/30/2024 3:05 PM CDT) Glucose, ur, POC Negative Negative MG/DL Bilirubin, ur, POC Small Negative, Small, Moderate, Large Ketones, ur, POC Negative Negative Specific [place], POC 1.030 1.003 - 1.030 Blood, ur, POC Negative Negative pH, ur, POC 5.5 5.0 - 8.0 Protein, ur, POC 100.(A) Negative Urobilinogen, urine, POC 0.2 0.2 - 1.0 mg/dL Nitrite, ur, POC Negative Negative Leukocytes, ur, POC Negative Negative Lot Number [id number] Urine 08/30/2024 3:05 PM CDT Nini [facility] POINT OF CARE TEST ORDERAB LES Final Result * Urine culture Urine, clean voided (08/30/2024 2:57 PM CDT) [facility]rine culture [facility] Comment: CULTURE, URINE, ROUTINE Micro Number: [id number] Test Status: Final Specimen Source: Clean void Specimen Quality: Adequate Result: Less than 10,000 CFU/mL of single Gram negative organism isolated. No further testing will be performed. If clinically indicated, recollection using a method to minimize contamination, with prompt transfer to Urine Culture Transport Tube, is recommended. Urine, clean voided 08/30/2024 2:57 PM CDT 09/01/2024 1:52 AM CDT N[facility] MICROBIOLOGY - GENERAL ORDERABLES Final Result [facility] [address] [place] [address] * Differential, auto (07/29/2024 4:25 PM SENIOR PROJECT ARCHITECT) Neutrophil abs 3.5 1.5 - 6.5 K/cumm Imm gran abs 0.0 0.0 - 0.1 K/cumm [facility] Lymphocyte abs 1.4 0.8 - 3.3 K/cumm [facility] Monocyte abs 0.4 0.2 - 0.8 K/cumm [facility] Eosinophil abs 0.3 0.0 - 0.5 K/cumm [facility] Basophil abs 0.1 0.0 - 0.1 K/cumm [facility] Neutrophil pct 61.6 % [facility] Comment: Interpretive Data Percent cell count reference ranges are not reported, since discordance with absolute values may lead to misinterpretation of CBC data. Current Interpretive Data was last revised on 2017. Imm gran pct 0.4 % [facility] Comment: Interpretive Data Percent cell count reference ranges are not reported, since discordance with absolute values may lead to misinterpretation of CBC data. Current Interpretive Data was last revised on 2017. Lymphocyte pct 24.9 % [facility] Comment: Interpretive Data Percent cell count reference ranges are not reported, since discordance with absolute values may lead to misinterpretation of CBC data. Current Interpretive Data was last revised on 2017. Monocyte pct 7.4 % [facility] Comment: Interpretive Data Percent cell count reference ranges are not reported, since discordance with absolute values may lead to misinterpretation of CBC data. Current Interpretive Data was last revised on 2017. Eosinophil pct 4.6 % [facility] Comment: Interpretive Data Percent cell count reference ranges are not reported, since discordance with absolute values may lead to misinterpretation of CBC data. Current Interpretive Data was last revised on 2017. Basophil pct 1.1 % [facility] Comment: Interpretive Data Percent cell count reference ranges are not reported, since discordance with absolute values may lead to misinterpretation of CBC data. Current Interpretive Data was last revised on 2017. Blood 07/29/2024 4:25 PM SENIOR PROJECT ARCHITECT 07/29/2024 4:25 PM SENIOR PROJECT ARCHITECT Gianna Baker NP LAB BLOOD ORDERABLES Final Result JOE [address] Department [place] [address] * (ABNORMAL) CBC with auto differential (07/29/2024 4:25 PM SENIOR PROJECT ARCHITECT) WBC 5.7 3.8 - 9.9 K/cumm Hgb 12.2 11.9 - 15.5 g/dL [facility] Hct 37.4 35.6 - 45.5 % [facility] Plt 257 150 - 400 K/cumm [facility] MPV 8.9(L) 9.1 - 12.3 fL [facility] RBC 3.89(L) 3.90 - 5.20 M/cumm [facility] MCV 96.1 81.3 - 96.4 fL [facility] MCH 31.4 27.1 - 33.3 pg [facility] MCHC 32.6 32.3 - 35.7 g/dL [facility] RDW CV 11.9 11.1 - 14.9 % [facility] RDW SD 41.6 35.7 - 48.1 fL [facility] NRBC abs 0.00 0.00 - 0.01 K/cumm [facility] Blood 07/29/2024 4:25 PM SENIOR PROJECT ARCHITECT 07/29/2024 4:25 PM SENIOR PROJECT ARCHITECT Gianna Baker NP LAB BLOOD ORDERABLES Final Result JOE [place] [email or web address] [address] * Sepsis Lactate w/ Reflex (07/29/2024 4:16 PM SENIOR PROJECT ARCHITECT) Pathologist [facility] Sepsis Lactate 0.7 0.7 - 2.0 mmol/L Blood 07/29/2024 4:16 PM SENIOR PROJECT ARCHITECT 07/29/2024 4:23 PM SENIOR PROJECT ARCHITECT Gianna Baker NP LAB BLOOD ORDERABLES Final Result Performing Organization Address City/[facility] Co de Phone Number [facility] [address] [place] [email or web address] [address] * (ABNORMAL) eGFR (07/29/2024 4:16 PM SENIOR PROJECT ARCHITECT) eGFR 48(L) >=60 mL/min/1. 73 m2 Comment: Interpretive Data Reference Interval Normal >/= 90 mL/min/1.73m2 Mildly decreased* 60 - 89 mL/min/1.73m2 Mildly to moderately decreased 45 - 59 mL/min/1.73m2 Moderately to severely decreased 30 - 44 mL/min/1.73m2 Severely decreased 15 - 29 mL/min/1.73m2 Kidney Failure < 15 mL/min/1.73m2 *Relative to young adult level Estimated glomerular filtration rate is determined by the 2020 CKD-EPI equation recommended by the National Kidney Foundation (A Unifying Approach to GFR Estimation: Recommendations of the NKF-ASK Task Force on Reassessing the Inclusion of Race in Diagnosing Kidney Disease, JASN 2020). The CKD-EPI equation should not be used for patients with unstable renal function and has not been validated in children and those over 70. Current interpretive data was last reviewed 2021. Blood 07/29/2024 4:16 PM SENIOR PROJECT ARCHITECT 07/29/2024 4:23 PM SENIOR PROJECT ARCHITECT us Gianna Baker NP LAB BLOOD ORDERABLES Final Result [facility] [address] Department [place] [address] * (ABNORMAL) Comprehensive metabolic panel (07/29/2024 4:16 PM SENIOR PROJECT ARCHITECT) Sodium 142 135 - 145 mmol/L Potassium, pl 4.5 3.3 - 4.9 mmol/L [facility] Chloride 103 97 - 110 mmol/L [facility] CO2 27 22 - 32 mmol/L [facility] Anion gap 12 2 - 15 mmol/L [facility] BUN 22 6 - 25 mg/dL [facility] Creatinine 1.22(H) 0.60 - 1.10 mg/dL [facility] Glucose 97 70 - 199 mg/dL [facility] Comment: Interpretive Data Fasting glucose >/= 126 mg/dl is diagnostic for diabetes. Fasting is defined as no caloric intake for at least 8 hours. Fasting glucose between 100 mg/dl to 125 mg/dl is diagnostic of prediabetes. In a patient with classic symptoms of hyperglycemia or hyperglycemic crisis, a random glucose >/= 200 mg/dl is diagnostic for diabetes. In the absence of unequivocal hyperglycemia, results should be confirmed by repeat testing. The classification and Diagnosis of Diabetes Diabetes Care 202; 46: S19-S40. Current interpretive data was last revised 2022. Calcium 9.2 8.5 - 10.3 mg/dL [facility] Bilirubin, total 0.2 0.1 - 1.2 mg/dL [facility] Protein, pl 6.8 6.5 - 8.5 g/dL [facility] Albumin 4.0 3.5 - 5.0 g/dL [facility] Alk phos 165(H) 40 - 130 Units/L [facility] ALT 26 7 - 45 Units/L [facility] AST 20 10 - 45 Units/L [facility] Blood 07/29/2024 4:16 PM SENIOR PROJECT ARCHITECT 07/29/2024 4:23 PM SENIOR PROJECT ARCHITECT Gianna Baker NP LAB BLOOD ORDERABLES Final Result JOE DUPREE [address] Department [place] [address] * XR Chest Pa Lateral 2 Vw (07/29/2024 3:52 PM SENIOR PROJECT ARCHITECT) Anatomical Region Laterality Modality Body, Chest N/A Computed Radiogr aphy 07/29/2024 4:02 PM SENIOR PROJECT ARCHITECT Impressions 07/29/2024 4:02 PM SENIOR PROJECT ARCHITECT No active disease. Electronically signed by: Johnson Handley M.D. Narrative 07/29/2024 4:02 PM SENIOR PROJECT ARCHITECT EXAMINATION: XR CHEST PA LATERAL 2 VIEWS HISTORY: The patient is a 69-year-old female who presents with weakness. Comparison is made with previous study dated 11/16/2023. TECHNIQUE: PA and lateral view of the chest. FINDINGS: Lungs clear. Cardiovascular structures unremarkable. Procedure Note Johnson Handley MD - 07/29/2024 EXAMINATION: XR CHEST PA LATERAL 2 VIEWS HISTORY: The patient is a 69-year-old female who presents with weakness. Comparison is made with previous study dated 11/16/2023. TECHNIQUE: PA and lateral view of the chest. FINDINGS: Lungs clear. Cardiovascular structures unremarkable. IMPRESSION: No active disease. Electronically signed by: Johnson Handley M.D. Gianna Baker [employer] IMG XR PROCEDURES Fi nal Result * Respiratory pathogen panel Nasopharyngeal (07/29/2024 3:28 PM SENIOR PROJECT ARCHITECT) Influenza A RNA Not Detected Not Detected Influenza B RNA Not Detected Not Detected [facility] RSV RNA Not Detected Not Detected [facility] COVID-19 RNA Not Detected Not Detected [facility] Coronavirus 229E RNA Not Detected Not Detected [facility] Coronavirus HKU1 RNA Not Detected Not Detected [facility] Coronavirus NL63 RNA Not Detected Not Detected [facility] Coronavirus OC43 RNA Not Detected Not Detected [facility] Adenovirus DNA Not Detected Not Detected [facility] Metapneumovirus RNA Not Detected Not Detected [facility] Rhinovirus/Enterov irus RNA Not Detected Not Detected [facility] Parainfluenza 1 RNA Not Detected Not Detected [facility] Parainfluenza 2 RNA Not Detected Not Detected [facility] Parainfluenza 3 RNA Not Detected Not Detected [facility] Parainfluenza 4 RNA Not Detected Not Detected [facility] B. pertussis DNA Not Detected Not Detected [facility] B. parapertussis DNA Not Detected Not Detected [facility] C. pneumoniae DNA Not Detected Not Detected [facility] M. pneumoniae DNA Not Detected Not Detected [facility] Comment: Interpretive Data The [employer] FilmArray Respiratory Panel (RP2.1) assay is a multiplexed real-time PCR based nucleic acid test capable of simultaneous qualitative detection and identification of multiple respiratory viral and bacterial nucleic acids, including SARS Coronavirus 2 (the causative agent of COVID-19). The following bacteria, viruses and virus subtypes can be identified using the FilmArray RP2.1 assay: Bordetella pertussis, Bordetella parapertussis, Chlamydia pneumoniae, Mycoplasma pneumoniae, Adenovirus, SARS Coronavirus 2, seasonal coronaviruses (Coronavirus HKU1, Coronavirus NL63, Coronavirus 229E, and Coronavirus OC43), Influenza A, Influenza A subtype H1, Influenza A subtype H3, Influenza A subtype 2009 H1, Influenza B, Metapneumovirus, Parainfluenza 1, Parainfluenza 2, Parainfluenza 3, Parainfluenza 4, RSV, Rhinovirus/Enterovirus. Due to the genetic similarity between human Rhinovirus and Enterovirus, the FilmArray RP2.1 assay cannot reliably differentiate them. Coronavirus OC43 may cross-react with some isolates of Coronavirus HKU1. A dual positive result may be due to cross-reactivity or may indicate a co- infection. The detection and identification of specific viral and bacterial nucleic acids from individuals exhibiting signs and symptoms of a respiratory infection aids in the diagnosis of respiratory infection if used in conjunction with other clinical and epidemiological information. The results of this test should not be used as the sole basis for diagnosis, treatment, or other management decisions. Negative results in the setting of a respiratory illness may be due to infection with pathogens that are not detected by this test. Positive results do not rule out infection/co-infection with other organisms. The agent(s) detected by the FilmArray RP2.1 may not be the definite cause of disease. Additional testing (lab, imaging, etc.) may be necessary when evaluating a patient with possible respiratory tract infection. The FilmArray RP2.1 assay has FDA clearance for testing of [employer] swabs. The performance characteristics of this assay have been determined by [facility]. Current interpretive data was last revised on 2020. Nasopharyngeal 07/29/2024 3: 28 PM SENIOR PROJECT ARCHITECT 07/29/2024 3:37 PM SENIOR PROJECT ARCHITECT Narrative [facility] - 07/29/2024 4:33 PM SENIOR PROJECT ARCHITECT Is the Patient experiencing symptoms consistent with COVID?->Yes Surveillance testing for transplant patient?->No Gianna Baker [employer] LAB MICROBIOLOGY - G ENERAL ORDERABLES Final Result [facility] [address] Department [place] [address] CH * (ABNORMAL) Urinalysis reflex to microscopic and culture Urine (07/26/2024 3:51 PM SENIOR PROJECT ARCHITECT) Color, ur Yellow Yellow Clarity, ur Turbid(A) Clear [facility] Specific gravity, ur 1.019 1.003 - 1.030 [facility] pH, urine 6.5 [facility] Comment: Interpretive Data U rine pH is affected by diet, medications, systemic acid-base disturbances, and renal tubular function. pH may affect urinary stone formation. For example, urine pH below 6.0 may help reduce the tendency for calcium phosphate stones and pH greater than 6.0 may reduce the tendency for uric acid stone formation. Source: [facility] [email or web address] Current Interpretive Data was last revised on 2017 Protein, ur ql Negative Negative [facility] Glucose, ur ql Negative Negative [facility] Ketones, ur Negative Negative [facility] Bilirubin, ur Negative Negative [facility] Blood, ur Negative Negative [facility] Urobilinogen, ur <2.0 <2.0 mg/dL [facility] Nitrite, ur Negative Negative [facility] Leukocyte esterase, ur 3+(A) Negative [facility] UA reflex comment Reflex to microscopic UA will be performed. [facility] Urine 07/26/2024 3:51 PM SENIOR PROJECT ARCHITECT 07/26/2024 4:04 PM SENIOR PROJECT ARCHITECT Pedro Kerr MD LAB MICROBIOLOGY - GENER AL ORDERABLES Final Result Performing Organization Address [facility] Co de Phone Number JOE [place] [address] [employer] [address] * (ABNORMAL) Urinalysis, microscopic only (07/26/2024 3:51 PM SENIOR PROJECT ARCHITECT) WBC, ur 11-20(A) 0 - 5 /HPF RBC, ur 0-2 0 - 2 /HPF [facility] Epithelial cells, squamous, ur 11-20(A) 0 - 5 /HPF [facility] Mucous, ur Present(A) [facility] Culture Reflex Comment Reflex to urine culture will be performed. [facility] Urine 07/26/2024 3:51 PM SENIOR PROJECT ARCHITECT 07/26/2024 4:04 PM SENIOR PROJECT ARCHITECT Pedro Kerr MD LAB URINE ORDERABLES Fin al Result Performing Organization Address [facility] Co de Phone Number JOE DUPREE [address] [place] [email or web address] [address] * Urine culture Urine (07/26/2024 3:51 PM SENIOR PROJECT ARCHITECT) Report Final Report: Less than 100,000 colonies/mL (clinically insignificant growth based on current clinical standards) Comment:Testing performed by : [facility], [address] [facility], [place]., [address] Organism (CLINICALLY INSIGNIFICANT GROWTH [facility] Urine 07/26/2024 3:51 PM SENIOR PROJECT ARCHITECT 07/26/2024 5:57 PM SENIOR PROJECT ARCHITECT Narrative JOE - 07/27/2024 6:59 PM SENIOR PROJECT ARCHITECT Urine culture reflexed based upon urinalysis results. Testing performed by [facility] ([phone]) Pedro Kerr MD LAB MICROBIOLOGY - GENER AL ORDERABLES Final Result Performing Organization Address City/[facility]/ZIP Co de Phone Number JOE [address] Department [place] [address] * ECG 12 lead (07/26/2024 3:21 PM SENIOR PROJECT ARCHITECT) 07/26/2024 3:21 PM SENIOR PROJECT ARCHITECT Narrative [facility] - 07/26/2024 3:45 PM SENIOR PROJECT ARCHITECT Vent Rate: 77 bpm RR Interval: 771 msec VA Interval: 156 msec QRS Duration: 81 msec QT Interval: 348 msec QTC Interval: 380 msec P-R-T [place]: 40 - 6 - -17 degrees IMPRESSION: SINUS RHYTHM LOW QRS VOLTAGE IN PRECORDIAL LEADS [QRS DEFLECTION < 1.0 mV IN CHEST LEADS] BORDERLINE ECG NO CHANGE FROM PREVIOUS TRACING NOTED Electronically Signed By: Jorge Leggett MD Pedro Kerr MD ECG ORDERABLES Final Re sult Performing Organization Address [facility] Co de Phone Number [facility] [employer] [facility] * (ABNORMAL) eGFR (07/26/2024 11:55 AM SENIOR PROJECT ARCHITECT) eGFR 49(L) >=60 mL/min/1. 73 m2 Comment: Interpretive Data Reference Interval Normal >/= 90 mL/min/1.73m2 Mildly decreased* 60 - 89 mL/min/1.73m2 Mildly to moderately decreased 45 - 59 mL/min/1.73m2 Moderately to severely decreased 30 - 44 mL/min/1.73m2 Severely decreased 15 - 29 mL/min/1.73m2 Kidney Failure < 15 mL/min/1.73m2 *Relative to young adult level Estimated glomerular filtration rate is determined by the 2020 CKD-EPI equation recommended by the National Kidney Foundation (A Unifying Approach to GFR Estimation: Recommendations of the NKF-ASK Task Force on Reassessing the Inclusion of Race in Diagnosing Kidney Disease, JASN 2020). The CKD-EPI equation should not be used for patients with unstable renal function and has not been validated in children and those over 70. Current interpretive data was last reviewed 2021. Blood 07/26/2024 11:5 5 AM SENIOR PROJECT ARCHITECT 07/26/2024 12:07 PM SENIOR PROJECT ARCHITECT us Fredrick DESIR LAB BLOOD ORDERABLES Final Result [facility] [address] Department [place] [address] * (ABNORMAL) Differential, auto (07/26/2024 11:55 AM SENIOR PROJECT ARCHITECT) Neutrophil abs 5.3 1.5 - 6.5 K/cumm Imm gran abs 0.0 0.0 - 0.1 K/cumm [facility] Lymphocyte abs 0.7(L) 0.8 - 3.3 K/cumm [facility] Monocyte abs 0.3 0.2 - 0.8 K/cumm [facility] Eosinophil abs 0.1 0.0 - 0.5 K/cumm [facility] Basophil abs 0.1 0.0 - 0.1 K/cumm [facility] Neutrophil pct 82.3 % [facility] Comment: Interpretive Data Percent cell count reference ranges are not reported, since discordance with absolute values may lead to misinterpretation of CBC data. Current Interpretive Data was last revised on 2017. Imm gran pct 0.3 % [facility] Comment: Interpretive Data Percent cell count reference ranges are not reported, since discordance with absolute values may lead to misinterpretation of CBC data. Current Interpretive Data was last revised on 2017. Lymphocyte pct 11.0 % [facility] Comment: Interpretive Data Percent cell count reference ranges are not reported, since discordance with absolute values may lead to misinterpretation of CBC data. Current Interpretive Data was last revised on 2017. Monocyte pct 3.9 % [facility] Comment: Interpretive Data Percent cell count reference ranges are not reported, since discordance with absolute values may lead to misinterpretation of CBC data. Current Interpretive Data was last revised on 2017. Eosinophil pct 1.4 % [facility] Comment: Interpretive Data Percent cell count reference ranges are not reported, since discordance with absolute values may lead to misinterpretation of CBC data. Current Interpretive Data was last revised on 2017. Basophil pct 1.1 % [facility] Comment: Interpretive Data Percent cell count reference ranges are not reported, since discordance with absolute values may lead to misinterpretation of CBC data. Current Interpretive Data was last revised on 2017. Blood 07/26/2024 11:5 5 AM SENIOR PROJECT ARCHITECT 07/26/2024 12:07 PM SENIOR PROJECT ARCHITECT Fredrick DESIR LAB BLOOD ORDERABLES Final Result [facility] [address] Department [place] [address] * (ABNORMAL) CBC with auto differential (07/26/2024 11:55 AM SENIOR PROJECT ARCHITECT) WBC 6.5 3.8 - 9.9 K/cumm Hgb 11.9 11.9 - 15.5 g/dL [facility] Hct 37.1 35.6 - 45.5 % [facility] Plt 278 150 - 400 K/cumm [facility] MPV 8.9(L) 9.1 - 12.3 fL [facility] RBC 3.85(L) 3.90 - 5.20 M/cumm [facility] MCV 96.4 81.3 - 96.4 fL [facility] MCH 30.9 27.1 - 33.3 pg [facility] MCHC 32.1(L) 32.3 - 35.7 g/dL [facility] RDW CV 12.2 11.1 - 14.9 % [facility] RDW SD 43.5 35.7 - 48.1 fL [facility] NRBC abs 0.00 0.00 - 0.01 K/cumm [facility] Blood Venous blood specimen / Unknown 07/26/2024 11:55 AM SENIOR PROJECT ARCHITECT 07/26/2024 12:07 PM SENIOR PROJECT ARCHITECT us Fredrick DESIR LAB [place]LOOD [place] [address] [address] Department [place] [address] * (ABNORMAL) Comprehensive metabolic panel (07/26/2024 11:55 AM SENIOR PROJECT ARCHITECT) Sodium 138 135 - 145 mmol/L Potassium, pl 4.5 3.3 - 4.9 mmol/L [facility] Chloride 99 97 - 110 mmol/L [facility] CO2 28 22 - 32 mmol/L [facility] Anion gap 11 2 - 15 mmol/L [facility] BUN 19 6 - 25 mg/dL [facility] Creatinine 1.21(H) 0.60 - 1.10 mg/dL [facility] Glucose 102 70 - 199 mg/dL [facility] Comment: Interpretive Data Fasting glucose >/= 126 mg/dl is diagnostic for diabetes. Fasting is defined as no caloric intake for at least 8 hours. Fasting glucose between 100 mg/dl to 125 mg/dl is diagnostic of prediabetes. In a patient with classic symptoms of hyperglycemia or hyperglycemic crisis, a random glucose >/= 200 mg/dl is diagnostic for diabetes. In the absence of unequivocal hyperglycemia, results should be confirmed by repeat testing. The classification and Diagnosis of Diabetes Diabetes Care 202; 46: S19-S40. Current interpretive data was last revised 2022. Calcium 9.4 8.5 - 10.3 mg/dL [facility] Bilirubin, total 0.3 0.1 - 1.2 mg/dL [facility] Protein, pl 6.9 6.5 - 8.5 g/dL [facility] Albumin 4.3 3.5 - 5.0 g/dL [facility] Alk phos 193(H) 40 - 130 Units/L [facility] ALT 41 7 - 45 Units/L [facility] AST 21 10 - 45 Units/L [facility] Blood 07/26/2024 11:5 5 AM SENIOR PROJECT ARCHITECT 07/26/2024 12:07 PM SENIOR PROJECT ARCHITECT Fredrick DESIR LAB [place] [address] [address] [place] [address] * CT Head WO Contrast (07/26/2024 11:28 AM SENIOR PROJECT ARCHITECT) Anatomical Region Laterality Modality Head and Neck N/A Computed Tomogra phy 07/26/2024 1:31 PM SENIOR PROJECT ARCHITECT Impressions 07/26/2024 1:31 PM SENIOR PROJECT ARCHITECT No intracranial bleed, mass or acute infarct. Electronically signed by: Johnson Handley M.D. Narrative 07/26/2024 1:31 PM SENIOR PROJECT ARCHITECT EXAMINATION: CT HEAD WO CONTRAST HISTORY: The patient is a 69-year-old female who presents with vertigo. TECHNIQUE: Axial images were obtained through the brain with thin sections and viewed both in soft tissue and bone window settings. Following this, coronal and sagittal reconstructions were performed. FINDINGS: Axial images through the brain reveals the 4th, 3rd and lateral ventricles to be normal in size and position. Cerebral sulci not prominent. No intracerebral hemorrhage or extra-axial fluid collection is noted. Images obtained in the coronal and in the sagittal planes adds no further information. Axial images obtained at bone window settings reveal the cranial vault to be intact. Mastoid air cells and paranasal sinuses are normally aerated. Procedure Note Johnson Handley MD - 07/26/2024 EXAMINATION: CT HEAD WO CONTRAST HISTORY: The patient is a 69-year-old female who presents with vertigo. TECHNIQUE: Axial images were obtained through the brain with thin sections and viewed both in soft tissue and bone window settings. Following this, coronal and sagittal reconstructions were performed. FINDINGS: Axial images through the brain reveals the 4th, 3rd and lateral ventricles to be normal in size and position. Cerebral sulci not prominent. No intracerebral hemorrhage or extra-axial fluid collection is noted. Images obtained in the coronal and in the sagittal planes adds no further information. Axial images obtained at bone window settings reveal the cranial vault to be intact. Mastoid air cells and paranasal sinuses are normally aerated. IMPRESSION: No intracranial bleed, mass or acute infarct. Electronically signed by: Johnson Handley M.D. Fredrick DESIR IMCesar CT PROCEDURES Final Re sult * Dexa Axial Skeleton Bone Density 1 or 2 Site (04/18/2021 1:33 PM SENIOR PROJECT ARCHITECT) Anatomical Region Laterality Modality Body N/A Other 04/18/2021 2:00 PM SENIOR PROJECT ARCHITECT Narrative 04/18/2021 2:02 PM SENIOR PROJECT ARCHITECT EXAM DESCRIPTION: DEXA AXIAL SKELETON BONE DENSITY 1 OR MORE SITES REASON FOR STUDY: Post-menopausal female, screening for osteoporosis. Sagger Filler/Model: [employer] (S/N [id number]) CLINICAL INFORMATION: Current height: 63 inches Maximum height: 365 inches Weight: 169.5 pounds Risk factors: None COMPARISON: None available. FINDINGS: AP LUMBAR SPINE L1-L4: Total BMD is 1.110 g/cm2 T-score is 0.6 LEFT HIP: Total BMD is 0.990 g/cm2 T-score is 0.4 Femoral neck BMD is 0.759 g/cm2 T-score is -0.8 IMPRESSION: Normal bone mineral density by WHO criteria. REFERENCE: Bone mineral density: Normal (T-score above or = -1.0) Low bone mass (T-score between -1.0 and -2.5) replaces the previously used term osteopenia Osteoporosis (T-score = or below -2.5) Medical evaluation for secondary causes of low bone mineral density may be appropriate. FRAX is a World Health Organization validated fracture risk assessment tool that calculates a person's 10 year probability of a major osteoporosis related fracture and hip fracture. According to the National Osteoporosis Foundation guidelines, postmenopausal women and men age 50 or older with low bone mass and a 10 year probability of a major osteoporosis related fracture = or greater than 20% or a 10 year probability of a hip fracture = or greater than 3% should be considered for treatment. For further information, including treatment recommendations, please refer to the 2013 ISCD Official Positions (http://www.iscd.org) and the NOF's Clinician's Guide to Prevention and Treatment of Osteoporosis (http://www.nof.org/professionals/clinical-guidelines) THIS IS AN ELECTRONICALLY VERIFIED FINAL REPORT 04/18/2021 2:02 PM - Electronically signed by Zheng Mgcee M.D. AB: Report ID: [id number] Reading Location: [id number] Procedure Note Zheng Mcgee MD - 04/18/2021 EXAM DESCRIPTION: DEXA AXIAL SKELETON BONE DENSITY 1 OR MORE SITES REASON FOR STUDY: Post-menopausal female, screening for osteoporosis. Sagger Filler/Model: [employer] (S/N [id number]) CLINICAL INFORMATION: Current height: 63 inches Maximum height: 365 inches Weight: 169.5 pounds Risk factors: None COMPARISON: None available. FINDINGS: AP LUMBAR SPINE L1-L4: Total BMD is 1.110 g/cm2 T-score is 0.6 LEFT HIP: Total BMD is 0.990 g/cm2 T-score is 0.4 Femoral neck BMD is 0.759 g/cm2 T-score is -0.8 IMPRESSION: Normal bone mineral density by WHO criteria. REFERENCE: Bone mineral density: Normal (T-score above or = -1.0) Low bone mass (T-score between -1.0 and -2.5) replaces thepreviously used term osteopenia Osteoporosis (T-score = or below -2.5) Medical evaluation for secondary causes of low bone mineral density may be appropriate. FRAX is a World Health Organization validated fracture risk assessmenttool that calculates a person's 10 year probability of a major osteoporosisrelated fracture and hip fracture. According to the National OsteoporosisFoundation guidelines, postmenopausal women and men age 50 or older with low bonemass and a 10 year probability of a major osteoporosis related fracture = or greater than 20% or a 10 year probability of a hip fracture = or greaterthan 3% should be considered for treatment. For further information, including treatment recommendations, please referto the 2013 ISCD Official Positions (http://www.iscd.org) and the NOF's Clinician's Guide to Prevention and Treatment of Osteoporosis (http://www.nof.org/professionals/clinical-guidelines) THIS IS AN ELECTRONICALLY VERIFIED FINAL REPORT 04/18/2021 2:02 PM - Electronically signed by Zheng Mcgee M.D. AB: Report ID: [id number] Reading Location: [id number] Nini DESIR IMG DXA PROCEDURES Final R esult from Last 3 Months or Most Recently Relevant to Health Maintenance Insurance [facility] MEDICARE MEDICARE ANTHEM ACCESS CHOICE Advance Directives For more information, please contact: [phone] * Full Code (Latest Code Status on File) Date Activated Date Inactivated Comments 09/12/2022 4:45 PM 09/13/2022 6:54 PM Care Teams Lacemaker Relationship Specialty Start Date End Date Nini Kramer PA [address] [facility] [address] [place] [address] PCP - General Internal Medicine 10/03/20 Lotus Baptiste MD [facility], [facility] [address] [place] [address] Consulting Physician Pain Management 05/01/22 Dilan Duncan MD [address] [facility] [facility], [facility] [address] [place] [address] Consulting Physician Cardiology 01/28/24
--- OUTSIDE RECORDS SUMMARY | 2024-10-20 10:26 | XMS_ITS | Encounter Summary ---
Author Organization [facility] Healthcare Address [address] [place] [address] Care Team Providers Care Finishing Trimmer Name Role Phone Nini Kramer Primary Care Provider Lotus Baptiste MD Unavailable Dilan Duncan MD Unavailable Encounter Details Date Type Department Care Team (Late st Contact Info) Description 10/19/2024 Orders Only [facility] Medical [facility] Family Medicine [address] [place] [address] Nini Kramer PA [address] [place], [place] [id number] Acute cough (Primary Dx) Social History Tobacco Use Types Packs/Day Years Used Date Smoking Tobacco: Never Smokeless Tobacco: Never Alcohol Use Standard Drinks/Week Comments Not Currently 0 (1 standard drink = 0.6 oz pur e alcohol) [facility] Utilities Answer Date Recorded In the past 12 months has [employer] electric, gas, oil, or water company threatened [...] often do you attend chur ch or islam services? Never 04/28/2024 Do you belong to any clubs o r organizations such as jainism groups, unions, fraternal or athletic groups, or [...] any time in the past 12 m [facility], were you homeless or living in a nursing home (including now)? No 04/28/2024 Personal Safety Answer Date Recorded Have you ever been in or are you currently in a harmful physical or emotional relationship or is someone making you feel afraid or unsafe? Denies 08/31/2024 Comments No Sex and Gender Information Value Date Recorded Sex Assigned at Not on file Legal Sex Female 12:20 AM CREDIT SUPPORT SPECIALIST Gender Identity Not on file Sexual Orientation Not on file documented as of this encounter Progress Notes * Sabrina Prabhakar MA - 10/19/2024 10:43 AM CDT Patient was seen at on 10/13/24. Chest xray was ordered for [facility]. Patient requested order be sent to [facility] instead. documented in this encounter Plan of Treatment Scheduled Orders Name Type Priority Associated Diagnoses Orde r Schedule XR Chest Pa Lateral 2 Views Imaging Schedule Routine, Read Routine (OP Routine) Acute cough Expected: 10/19/2024, Expires: 10/19/2025 documented as of this encounter Visit Diagnoses Diagnosis Acute cough- Primary documented in this encounter Care Teams Finishing Trimmer Relationship Specialty Start Date End Date Nini Kramer PA [address] [facility] [address] [place] [address] PCP - General Internal Medicine 10/03/20 Lotus Baptiste MD [address] [place] [address] [facility] [place] [address] Consulting Physician Pain Management 05/01/22 Dilan Duncan MD [address] [place] [address] [address] Consulting Physician Cardiology 01/28/24 documented as of this encounter
--- OUTSIDE RECORDS SUMMARY | 2024-10-20 10:26 | XMS_ITS | Encounter Summary ---
Author Organization [facility] Healthcare Address [address] [place] [address] Care Team Providers Care Cork Mixer Name Role Phone Nini Kramer Primary Care Provider [phone]- [phone] Lotus Baptiste MD Unavailable Dilan Duncan MD Unavailable Sena Johnson RN Unavailable [phone] Angie Head LCSW Unavailable Unavaila Angie Decker LCSW Unavailable Unavaila Jesi Celis CMA Unavailable [phone] Dali Orellana MA Unavailable [phone] Encounter Details Date Type Department Care Team (Late st Contact Info) Description 04/17/2021 Telephone [facility] [address] [place] [address] Emily Rose, RT Social History Tobacco Use Types Packs/Day Years Used Date Smoking Tobacco: Never Smokeless Tobacco: Never AUDIT-C Answer Date Recorded Q1: How often do you have a drink containing alc ohol? Never 10/25/2020 Average Number of Drinks Not on file 021 Q3: How often do you have si x or more drinks on one occasion? Never 10/25/2020 PHQ-2 Answer Date Recorded PHQ-2 Total Score (If total score is 3 or more points, staff should administer the PHQ-9) 0 03/22/2021 Comments Unknown Sex and Gender Information Value Date Recorded Sex Assigned at Not on file Legal Sex Female 12:20 AM OUTREACH ASSOCIATE Gender Identity Not on file Sexual Orientation Not on file documented as of this encounter Plan of Treatment Not on file documented as of this encounter Visit Diagnoses Not on filedocumented in this encounter Additional Health Concerns Infection Onset Date Last Indicated Resolved Time COVID: Suspected 08/24/2022 08/24/2022 08/24/2022 7:50 PM CDT COVID: Suspected 11/15/2023 11/15/2023 11/15/2023 11:47 AM CDT COVID: Suspected 11/16/2023 11/16/2023 11/16/2023 4:21 AM CDT COVID: Suspected 06/09/2024 06/09/2024 06/09/2024 5:43 PM OUTREACH ASSOCIATE COVID19 06/09/2024 06/09/2024 06/19/2024 3:05 AM OUTREACH ASSOCIATE COVID: Recovered Comment:Added based on recent COVID infection. 06/19/2024 07/05/2024 09/17/2024 3:06 AM C DT COVID: Suspected 07/29/2024 07/29/2024 07/29/2024 4:35 PM OUTREACH ASSOCIATE COVID: Suspected 10/13/2024 10/13/2024 10/13/2024 9:29 AM CDT documented as of this encounter Care Teams Cork Mixer Relationship Specialty Start Date End Date Nini Kramer PA [address] [facility] [address] [place] [address] PCP - General Internal Medicine 10/03/20 Lotus Baptiste MD [facility], [address] [address] Consulting Physician Pain Management 05/01/22 Dilan Duncan MD [address] [place] [address] PAIN CENTER, [facility] [address] [place] [address] Consulting Physician Cardiology 01/28/24 Sena Johnson RN [address] [place] [address] Pathology Secretary 04/13/24 05/13/24 Angie Head LCSW Supervisor Byproducts 04/29/24 07/04/24 Angie Head LCSW Supervisor Byproducts 04/29/24 4 Jesi Lafleur CMA [address] [place] [address] [address] [place] [address] ACO Care Cooking Casing And Drying Supervisor 09/01/24 09/05/24 Dali Orellana MA [address] [place] [address] ACO Care Cooking Casing And Drying Supervisor 09/06/24 09/07/24 documented as of this encounter
--- OUTSIDE RECORDS SUMMARY | 2024-10-20 10:26 | XMS_ITS | Encounter Summary ---
Author Organization [facility] Address [address] [place] [address] Phone Care Team Providers Care Show Worker Name Role Phone Nini Kramer Primary Care Provider [phone]- [phone] Lotus Baptiste MD Unavailable Dilan Duncan MD Unavailable Reason for Referral * Diagnostic Imaging (Routine) - Pending Review Specialty Diagnoses / Procedures Referred By Mónica t Referred To Contact Diagnoses Mass of breast, unspecified laterality Procedures Breast Imaging DX Outside Consult Angie Holguin MD PhD [address] [id number] [place] [address] Phone: tel: fax: [facility] (All Locations) Referral ID Status Reason Start Date Expiration Date V isits Requested Visits Authorized [id number] Pending Review 10/20/2024 11/19/2025 1 1 Encounter Details Date Type Department Care Team (Late st Contact Info) Description 10/20/2024 Orders Only [facility] Surgery [address] [facility] Floor [address] [place] [address] Angie Holguin MD PhD [address] [id number] [place] [address] Mass of breast, unspecified laterality (Primary Dx) Social History Tobacco Use Types Packs/Day Years Used Date Smoking Tobacco: Never Smokeless Tobacco: Never Alcohol Use Standard Drinks/Week Comments Not Currently 0 (1 standard drink = 0.6 oz pur e alcohol) [facility] Utilities Answer Date Recorded In the past 12 months has e electric, gas, oil, or water company threatened [...] often do you attend chur ch or gnosticist services? Never 04/28/2024 Do you belong to any clubs o r organizations such as religious groups, unions, fraternal or athletic groups, or [...] time in the past 12 m [facility], were you homeless or living in a custodial (including now)? No 04/28/2024 Personal Safety Answer Date Recorded Have you ever been in or are you currently in a harmful physical or emotional relationship or is someone making you feel afraid or unsafe? Denies 08/31/2024 Comments No Sex and Gender Information Value Date Recorded Sex Assigned at Not on file Legal Sex Female 12:20 AM ASSESSMENT COORDINATOR Gender Identity Not on file Sexual Orientation Not on file documented as of this encounter Plan of Treatment Scheduled Orders Name Type Priority Associated Diagnoses Orde r Schedule Breast Imaging DX Outside Consult Imaging Routine Mass of breast, unspecified laterality Expected: 10/20/2024, Expires: 10/20/2025 documented as of this encounter Visit Diagnoses Diagnosis Mass of breast, unspecified laterality- Primary documented in this encounter Care Teams Show Worker Relationship Specialty Start Date End Date Nini Kramer PA [address] [facility] [address] [place] [address] PCP - General Internal Medicine 10/03/20 Lotus Baptiste MD [address] [facility], [facility] [address] [place] [address] Consulting Physician Pain Management 05/01/22 Dilan Duncan MD [address] [facility], [address] [address] Consulting Physician Cardiology 01/28/24 documented as of this encounter
--- OUTSIDE RECORDS SUMMARY | 2024-10-20 10:26 | XMS_ITS | Clinical Summary ---
Author Organization [facility] Address [address] [place] [address] Phone Care Team Providers Care Manager Of Regulatory Affairs Name Role Phone Nini Kramer PAC Primary Care Provider [phone] Allergies Active Allergy Reactions Criticality Noted Date Comments Prochlorperazine Anaphylaxis 11/18/2023 Levofloxacin Anaphylaxis 11/18/2023 Medications albuterol 108 (90 Base) MCG/ACT Aerosol Solution take 2 Puffs by inhalation every 6 hours as needed for Wheezing or Cough. 6.7 g 4 Active ondansetron (ZOFRAN-ODT) 4 MG TABLET DISPERSIBLE Take 1 Tablet by mouth every 8 hours as needed for Nausea - 1st line. 10 Tablet 4 Active Social History Tobacco Use Types Packs/Day Years Used Date Smoking Tobacco: Never Smokeless Tobacco: Never Tobacco Cessation:Counseling Given: Not Answered Comments No Sex and Gender Information Value Date Recorded Sex Assigned at Not on file Legal Sex Female 11:10 PM CDT Gender Identity Not on file Sexual Orientation Not on file Last Filed Vital Signs Vital Sign Reading Time Taken Comments Blood Pressure 120/87 11/20/2023 1:45 PM CDT Pulse 63 11/20/2023 2:00 PM CDT Temperature 36.2 C (97.2 F) 11/20/2023 11:51 AM CDT Respiratory Rate 18 11/20/2023 11:51 AM CDT Oxygen Saturation 98% 11/20/2023 2:00 PM CDT Inhaled Oxygen Concentration - - Weight 77.1 kg (170 lb) 11/20/2023 11:51 AM CDT Height 157.5 cm (5' 2) 11/20/2023 11:51 AM CDT Body Mass Index 31.09 11/20/2023 11:51 AM CDT Plan of Treatment Health Maintenance Due Date Last Done Comments Hepatitis C Virus (HCV) Screening 1955 Colonoscopy 02/24/2001 Colorectal Cancer Screening 02/24/2001 Cologuard 02/24/2006 Immunochemical Fecal Occult Blood 02/24/2006 Respiratory Syncytial Virus (RSV) Immunization (Adult) (1 - Risk 60-74 years 1-dose series) 2016 Zoster Immunization (2 of 2) 01/16/2018 11/21/2017 DEXA Bone Density 04/18/2023 04/18/2021 Influenza Immunization (#1) 01/25/202403/26, 03/26/2022, 02/20/2021, Additional history exists SARS-COV-2 Immunization ( season) 2024 05/17/2021, 08/16/2020, 07/19/2020 Mammogram 09/02/2024 09/03/2023, 03/0 06/2022, 04/18/2021 TdaP Immunization Completed 10/25/2020 Pneumococcal Immunization (50+ years) Completed 05/03/2022 Hepatitis B Immunization Aged Out No longer eligible based on patient's age to complete this topic Meningococcal Immunization (ACWY) Aged Out No longer eligible based on patient's age to complete this topic Rotavirus Immunization Aged Out No lo nger eligible based on patient's age to complete this topic Insurance MEDICARE [facility] Care Teams Manager Of Regulatory Affairs Relationship Specialty Start Date End Date Nini Kramer, PAC [address] [place] [address] [address] [place] [address] PCP - General Physician Dispensing Optician Apprentice 11/18/23
--- OUTSIDE RECORDS SUMMARY | 2024-10-20 10:27 | XMS_ITS | Clinical Summary ---
Author Organization [facility] [address] Address [address] [place] [address] Phone Care Team Providers Care Light Cleaner Name Role Phone Nini Kramer Primary Care Provider [phone] Lotus Baptiste MD Unavailable Dilan Duncan MD Unavailable Allergies Active Allergy Reactions Criticality Noted Date [...] within 12 hours or as directed by 30 patch 5 Active azelastine (OPTIVAR) 0.05 [...] 024 Overview (05/16/2024): 04/2024 Dr. Edwards at [facility] Assessment & Plan (05/16/2024 9:47 PM RN FIELD): Status post lap brittnee by Dr. Edwards at [facility]. States she is recovering well. Transitioned off her Sublocade injections while using the narcotics for her pain control. She states she has not restarted and has been off it about 2 weeks and inquires about continuing. Strongly encouraged her to talk with her pain management doctor for recommendations. Vaginal atrophy 05/11/2024 Lupus (systemic lupus erythematosus) 05/04/2024 Assessment & Plan (05/16/2024 9:48 PM RN FIELD): Patient recently diagnosed with lupus. Seeing Dr. Stinson at the [facility] arthritis center at [facility]. She was prescribed methotrexate and Plaquenil. Had to take a short break during the cholecystectomy but plans to restart it and return for follow-up. LILIAM (acute kidney injury) 04/19/2024 Primary hypertension 01/29/2024 Assessment & Plan (05/16/2024 9:48 PM RN FIELD): Bp is stable/in acceptable range for any [...] p.r.n. Assessment & Plan (04/24/2023 10:42 PM RN FIELD): Discussed GERD at length including anatomy, behavioral [...] provided. Assessment & Plan (05/03/2022 8:05 AM RN FIELD): Discussed the patient's BMI. The BMI is [...] 70 Assessment & Plan (04/24/2023 10:43 PM RN FIELD): Encouraged patient to follow low fat/low chol [...] labs. Assessment & Plan (04/24/2023 10:41 PM RN FIELD): Avoid nephrotoxic drugs including NSAIDs. Monitor labs. Assessment & Plan (12/04/2022 4:16 PM CDT): Avoid nephrotoxic drugs including NSAIDs. Monitor labs. Assessment & Plan (05/21/2022 12:12 PM RN FIELD): Avoid nephrotoxic drugs including NSAIDs. Monitor labs. [...] labs. Assessment & Plan (04/24/2023 10:42 PM RN FIELD): Bp is stable/in acceptable range for any [...] 20 Assessment & Plan (05/21/2022 12:17 PM RN FIELD): This is a significant, separately identifiable problem [...] neurotin. Assessment & Plan (05/03/2022 8:57 AM RN FIELD): Narcotic addiction. She continues with Suboxone per [...] She was preferred to sleep up in [place] but was unable to keep those appointments. Would like to be seen in [place] so will make referral to Dr. Cast for further evaluation of possible DEBBIE Assessment & Plan (11/05/2020 8:35 PM CDT): [...] HRT , followed by Nelli Cast MD [employer] Assessment & Plan (03/24/2021 2:23 PM CDT): HRT in testosterone managed by [facility]. Check DEXA Obesity (BMI 30-39.9) 10/25/2020 Assessment & Plan (08/12/2024 1:03 PM CDT): Discussed the patient's BMI. The BMI is above average. BMI management plan is completed. BMI Follow-up includes: nutrition counseling, exercise counseling and education provided. Assessment & Plan (08/04/2024 8:04 AM CDT): BMI Follow-up includes: Discussed diet and exercising counseling. Assessment & Plan (05/04/2024 9:05 AM RN FIELD): BMI Follow-up includes: Discussed diet and exercising [...] 25 Assessment & Plan (05/04/2024 9:04 AM RN FIELD): BMI Follow-up includes: Discussed diet and exercising [...] hospital as she plans to go to [facility]. Offered to call 911 but she is [...] 12/10/2023 Assessment & Plan (04/24/2023 10:45 PM RN FIELD): Check labs Breast cancer screening by mammogram 04/24/2023 12/10/2023 Assessment & Plan (04/24/2023 10:45 PM RN FIELD): Mammogram order provided Need for influenza vaccination 04/24/2023 11/20/2023 Assessment & Plan (04/24/2023 10:46 PM RN FIELD): Flu vaccine updated in the office today Obesity (BMI 30.0-34.9) 04/24/202311/23 Assessment & Plan (11/20/2023 1:32 PM CDT): Discussed the patient's BMI. The BMI is above average. BMI management plan is completed. BMI Follow-up includes: nutrition counseling, exercise counseling and education provided. Assessment & Plan (04/24/2023 10:45 PM RN FIELD): Discussed the patient's BMI. The BMI is above average. BMI management plan is completed. BMI Follow-up includes: nutrition counseling, exercise counseling and education provided. BMI 31.0-31.9,adult 12/04/2022 02/11/20 24 Assessment & Plan (12/10/2023 9:24 AM CDT): [...] provided. Assessment & Plan (04/24/2023 10:41 PM RN FIELD): Discussed the patient's BMI. The BMI is above average. BMI management plan is completed. BMI Follow-up includes: nutrition counseling, exercise counseling and education provided. Assessment & Plan (12/04/2022 8:15 AM CDT): Weight/BMI is in healthy range. Continue healthy lifestyle to maintain. Fatigue 12/04/2022 12/10/2023 Assessment & Plan (04/24/2023 10:43 PM RN FIELD): Probably multifactorial. Check labs and followup to [...] 12/04/2022 Assessment & Plan (05/21/2022 12:13 PM RN FIELD): Prevnar 20 updated in the office today Medicare annual wellness visit, initial 05/03/2022 12/10/2023 Assessment & Plan (05/21/2022 12:14 PM RN FIELD): Encouraged healthy lifestyle, good nutrition and exercise. [...] hydrochlorothiazide Assessment & Plan (05/21/2022 12:18 PM RN FIELD): This is a significant, separately identifiable problem [...] 12/10/2023 Assessment & Plan (05/21/2022 12:13 PM RN FIELD): Patient is noticing increased pressure with urination by the end of the day. Will check urine culture but suspect she could have a bladder prolapse are uterine prolapse based on her symptoms of feeling like something is falling out. Recommend talking with Dr. Cast about treatment intervention as she is getting [...] provided. Assessment & Plan (05/03/2022 8:05 AM RN FIELD): Discussed the patient's BMI. The BMI is above average. BMI management plan is completed. BMI Follow-up includes: nutrition counseling, exercise counseling and education provided. Assessment & Plan (11/22/2021 11:46 AM CDT): Obesity is unchanged. Discussed the patient's BMI. The BMI is above average. BMI management plan is completed. BMI Follow-up includes: nutrition counseling, exercise counseling and education provided. BMI 30.0-30.9,adult 11/22/2021 05/03/20 Assessment & Plan (11/22/2021 11:46 AM CDT): [...] and education provided. BMI 30.0-30.9,adult 08/28/2021 11/23/19 Assessment & Plan (09/06/2021 2:04 PM CDT): [...] 07/27/202104/2023 Assessment & Plan (05/21/2022 12:12 PM RN FIELD): History of postmenopausal bleeding. She has hysteroscopy scheduled with Dr. Castnext week. Will await those results and her recommendation. Assessment & Plan (01/20/2022 7:20 PM CDT): Patient continues per Does occur. She has been instructed to [...] to be referred to a new and seismograph recorder. Will make that referral and weight there [...] 12/04/2022 Assessment & Plan (07/27/2021 7:32 AM RN FIELD): See PMB Obesity (BMI 30-39.9) 07/26/20212021 Assessment & Plan (07/26/2021 1:25 PM RN FIELD): Obesity is unchanged. Discussed the patient's BMI. The BMI is above average. BMI management plan is completed. BMI Follow-up includes: nutrition counseling, exercise counseling and education provided. BMI 30.0-30.9,adult 07/26/2021 08/29/19 22 Assessment & Plan (07/26/2021 1:25 PM RN FIELD): Obesity is unchanged. Discussed the patient's BMI. [...] 12/04/2022 Assessment & Plan (05/03/2022 8:58 AM RN FIELD): Mammogram order provided as it is due [...] (02/27/2021 1:33 PM CDT): Patient directed to [facility] er for further evaluation and treatment. Report called to ER by provider. Nausea 02/27/2021 05/03/2022 Colon cancer screening 11/05/202012/09 Assessment & Plan (12/04/2022 9:18 AM CDT): Encouraged colon cancer screening noting early detection is important. . Had Cologuard at home but did not complete it. Assessment & Plan (05/03/2022 8:56 AM RN FIELD): Encouraged to complete the Cologuard. Assessment & [...] 12/10/2023 Assessment & Plan (05/21/2022 12:13 PM RN FIELD): Check urine culture Well adult health check 01/11/201301/2022 Encounter for screening for malignant neoplasm of colon 09/18/2010 05/03/2022 Encounters Date Type Department Care Team Description 10/20/2024 Orders Only [facility] Floor [address] [place] [address] Angie Holguin MD PhD Mass of breast, unspecified laterality (Primary Dx) 10/19/2024 Telephone [facility] Cancer [place] - Breast Imaging [facility] Floor [address] [place] [address] Angie Holguin MD PhD Medical Question/Miscellaneou s 10/19/2024 Orders Only [facility] Family Medicine [address] [place] [address] Nini Kramer PA Acute cough (Primary Dx) 10/15/2024 Orders Only [facility] Surgery [address] [place] [address] Floor [address] [place] [address] Angie Holguin MD PhD Mass of breast, unspecified laterality (Primary Dx); Retraction of both nipples; Scattered fibroglandular tissue density of both breasts on mammography; Mammographic microcalcification; Mammary duct ectasia of right breast 10/15/2024 Orders Only [facility] Surgery [facility] Floor [address] [place] [address] Nini Kramer PA Mass of breast, unspecified laterality (Primary Dx); Retraction of both nipples; Scattered fibroglandular tissue density of both breasts on mammography; Microcalcifications of the breast; Duct ectasia of breast, right 10/15/2024 Telephone [facility] Surgery [address] [place] [address] Floor [address] [place] [address] Angie Holguin MD PhD 10/13/2024 9:00 AM CDT Office Visit [facility] [place] [address] [place] [address] Suha Guidry NP Lower respiratory infection (Primary Dx); Acute eczematoid otitis externa of both ears; Mild intermittent asthma with status asthmaticus 09/28/2024 Orders Only [facility] Internal Medicine at [place] [address] [place] [address] Nini Kramer PA Retraction of both nipples (Primary Dx); Palpable mass of breast 09/24/2024 Results Follow-Up [facility] [address] [place] [address] Nini Kramer PA US Breast Bilateral Limited 09/24/2024 Results Follow-Up [facility] [address] [place] [address] Nini Kramer PA Diagnostic Mammogram Bilateral W Jason 09/15/2024 2:17 PM CDT - 09/15/2024 11:59 PM CDT Hospital Encounter [facility] [address] [place] [address] Mass of breast, unspecified laterality; Mastodynia Discharge Disposition: Discharge to home or self care 09/15/2024 2:00 PM CDT - 09/15/2024 11:59 PM CDT Hospital Encounter [facility] 1 [place] [address] Mass of breast, unspecified laterality; Mastodynia Discharge Disposition: Discharge to home or self care 09/08/2024 [facility] [address] [address] Dali Orellana MA 09/07/2024 [facility] [address] [address] Dali Orellana MA 09/06/2024 [facility] [address] [address] Dali Orellana MA 09/01/2024 Results Follow-Up [facility] [address] [place] [address] Nini Kramer PA Urine culture Urine, clean voided 09/01/2024 [facility] [address] [address] Jesi Lafleur CMA 08/31/2024 6:05 PM CDT - 08/31/2024 7:25 PM CDT Emergency [address] [place] [address] Acute right-sided low back pain without sciatica (Primary Dx); Hematuria, unspecified type; Anemia, unspecified type Discharge Disposition: Discharge to home or self care 08/30/2024 3:00 PM CDT Clinical Support [address] [place] [address] Dysuria (Primary Dx) 08/30/[address] [place] [address] Nini Kramer PA 08/30/[address] [place] [address] Nini Kramer PA Medical Question/Miscellaneou s 08/12/2024 1:00 PM CDT Office Visit [address] [place] [address] Nini Kramer PA Bilateral mastodynia (Primary Dx); Mass of breast, unspecified laterality; Congestion of nasal sinus; BMI 31.0-31.9,adult; Obesity (BMI 30-39.9) 08/11/[address] [place] [address] Nini Kramer PA Additional Services Or Orders 08/04/2024 8:00 AM CDT Office Visit [address] [place] [address] Nini Kramer PA Vertigo (Primary Dx); Breast cancer screening by mammogram; Colon cancer screening; BMI 32.0-32.9,adult; Obesity (BMI 30-39.9) 07/29/2024 2:46 PM RN FIELD - 07/30/2024 1:58 AM [facility] Emergency [facility] Emergency Department [address] [place] [address] Discharge Disposition: Left without being seen 07/29/2024 Telephone [facility] Family Medicine [address] [place] [address] Nini Kramer PA Followup ED visit for vertigo 07/27/2024 [facility] Accountable Care Organization [address] [place] [address] Yessenia Banegas MA 07/26/2024 12:56 PM RN FIELD - 07/26/2024 5:27 PM [facility] Emergency [facility] Emergency Department [address] [place] [address] Pedro Kerr MD Vertigo (Primary Dx) Discharge Disposition: Discharge to home or self care from Last 3 Months Immunizations Immunization Administration Dates Next Due Influenza, Quadrivalent, Hig h Dose, Preservative Free, Intrr 04/07/2023 Influenza, Quadrivalent, Spl it, Preservative Free, Intramuscular 02/19/2021,02/02/2020 Influenza, Unspecified 01/15/2024,2021,02/20/2021,02/01 Moderna SARS-CoV-2 Monovalen t Vaccination (12+ YRS) 08/16/2020,08/16/2020,07/19/2020,07/19 Pneumococcal Conjugate Pcv20 05/03/2022 Tdap 10/25/2020 ZOSTER Recombinant 11/21/2017 Surgical History Surgery Date Site/Laterality Comments CERVICAL SPINE SURGERY N/A almost 20 years ago HYSTERECTOMY 05/26/2021 - 05/25/2022 CHOLECYSTECTOMY 04/19/2024 Medical History Medical History Date Comments Anxiety Depression Hypertension Stage 3a chronic kidney disease (HCC) 11/23/2021 Pneumonia Lupus (systemic lupus erythematosus) (HCC) Family History Medical History Relation Name Comments No Known Problems Father Heart disease Maternal Grandfather defects Maternal Grandmother Breast cancer Maternal Grandmother Heart disease Maternal Grandmother Arthritis Mother Breast cancer Mother Diabetes Mother Hypertension Mother Osteoporosis Mother Ovarian cancer Mother Thyroid disease Mother Relation Name Status Comments Father Maternal Grandfather Maternal Grandmother Mother Social History Tobacco Use Types Packs/Day Years Used Date Smoking Tobacco: Never Smokeless Tobacco: Never Tobacco Cessation:Counseling Given: Not Answered Alcohol Use Standard Drinks/Week Comments Not Currently 0 (1 standard drink = 0.6 oz pur e alcohol) [facility] Utilities Answer Date Recorded In the past 12 months has th e electric, gas, oil, or water company [...] often do you attend chur ch or baptist services? Never 04/28/2024 Do you belong to any clubs o r organizations such as mosque groups, unions, fraternal or athletic groups, or [...] any time in the past 12 m [facility], were you homeless or living in a intermediate (including now)? No 04/28/2024 Personal Safety Answer Date Recorded Have you ever been in or are you currently in a harmful physical or emotional relationship or is someone making you feel afraid or unsafe? Denies 08/31/2024 Comments No Sex and Gender Information Value Date Recorded Sex Assigned at Not on file Legal Sex Female 12:20 AM RN FIELD Gender Identity Not on file Sexual Orientation Not on file Obstetrics History Para Term AB IAB SAB Ectopic Multiple Livin g Live Births 2 2 2 Date Outcome GA Total Labor Labor/2nd/3rd Weight Sex Type Anes PTL Sofia A1 A5 Name Clin Term Term Last Filed Vital Signs Vital Sign Reading [...] 10/13/2024 8:59 AM CDT Plan of Treatment Health Maintenance Due Date Last Done Comments Colon Cancer Screening-Colonoscopy 1955 Hepatitis C Screening 1955 Hepatitis B Screening 02/24/1974 Zoster Vaccine (2 of 2) 01/16/2018 11/21/2017 Osteoporosis Screening-Bone Density Scan 04/18/2023 04/18/2021, 04/18/2021 Covid-19 Vaccine (6 - 2023-2 5 season) 2024 05/17/2021, 08/16/2020, 08/16/2020, Additional history exists Well Visit 65+ 12/09/2024 12/10/2023, 1201/2022, 03/22/2021, Additional history exists Depression Screening 08/12/2025 08/12/2024, 08/04/2024, 05/04/2024, Additional history exists Fall Risk Assessment 08/12/2025 08/12/2024, 05/04/2024, 12/10/2023, Additional history exists Breast Cancer Screening-Mammogram 09/15/2025 09/15/2024, 09/03/2023, 09/03/2023, Additional history exists DTaP/Tdap/Td Vaccine (2 - Td or Tdap) 10/25/2030 10/25/2020 Pneumococcal vaccine 65+ Completed 05/03/2022 Influenza Vaccine Completed 01/15/2024, , 03/26/2022, Additional history exists Medical Devices Implanted Type Area Mixing Machine Feeder Device Identifier Shelf Expiration Date Model / [...] DIFFERENTIAL AUTO STAT 07/29/2024 4:2 5 PM RN FIELD CBC WITH AUTO DIFFERENTIAL STAT 07/29/2024 4:25 PM RN FIELD EGFR STAT 07/29/2024 4:16 PM RN FIELD SEPSIS LACTATE WITH REFLEX STAT 07/29/2024 4:16 PM RN FIELD COMPREHENSIVE METABOLIC PANEL STAT 07/29/2024 4:16 PM RN FIELD XR CHEST PA LATERAL 2 VIEWS ED 07/29/2024 3:52 PM RN FIELD RESPIRATORY PATHOGEN PANEL STAT 07/29/2024 3:28 PM RN FIELD URINALYSIS, MICROSCOPIC ONLY STAT 07/26/2024 3:51 PM RN FIELD URINE CULTURE STAT 07/26/2024 3:51 PM RN FIELD URINALYSIS AND REFLEX TO MICROSCOPIC AND CULTURE STAT 07/26/2024 3:51 PM RN FIELD ECG 12-LEAD STAT 07/26/2024 3:21 PM RN FIELD EGFR STAT 07/26/2024 11:55 AM RN FIELD DIFFERENTIAL AUTO STAT 07/26/2024 11: 55 AM RN FIELD COMPREHENSIVE METABOLIC PANEL STAT 07/26/2024 11:55 AM RN FIELD CBC WITH AUTO DIFFERENTIAL STAT 07/26/2024 11:[address] HEAD WO CONTRAST ED 07/26/2024 1 1:28 AM RN FIELD DEXA AXIAL SKELETON BONE DENSITY 1 OR MORE SITES Schedule Routine, Read Routine (OP Routine) 04/18/2021 1:33 PM RN FIELD Menopause from Last 3 Months or Most Recently Relevant to Health Maintenance Results * COVID-19 POC (10/13/2024 9:28 AM CDT) Pathologist [facility] COVID-19 Ag POC (BD Veritor) Presumptive Negative Presumptive Negative, Invalid [facility] Nasal 10/13/2024 9:28 AM CDT us Suha Guidry NP POINT OF CARE TEST ORDERABLES Fi nal Result [facility] [address] [place] [address], [facility] * POCT respiratory syncytial virus (10/13/2024 9:28 AM CDT) Pathologist [facility] RSV Rapid Ag negative Nasal 10/13/2024 9:28 AM CDT us Suha Guidry [employer] POINT OF CARE TEST ORDERABLES Fi nal Result * POCT influenza A/B (10/13/2024 9:28 AM CDT) Rapid Influenza A Ag Negative Negative, Invalid Rapid Influenza B Ag Negative Negative, Invalid Nasal 10/13/2024 9:28 AM CDT us Suha Guidry [employer] POINT OF CARE TEST ORDERABLES Fi nal [...] as per ACR guidelines. OVERALL FINAL ASSESSMENT: [id number] Electronically signed by: Coleen Roblero M.D. Narrative [...] in the right retroareolar region. Nini [facility] MAMMO PROCEDURES Final Result * Diagnostic Mammogram [...] as per ACR guidelines. OVERALL FINAL ASSESSMENT: [id number] Electronically signed by: Coleen Roblero M.D. Narrative [...] in the right retroareolar region. Nini [facility] MAMMO PROCEDURES Final Result * CT Recon [...] Electronically signed by Musa DAVENPORT Report ID: [id number] Reading Location: [id number] Narrative 08/31/2024 5:50 PM CDT EXAM DESCRIPTION: [...] Multilevel degenerative disc disease, most pronounced and vgde-py-cxluuunk at L3-L4. Vertebral body heights are normal [...] disc bulge with superimposed central disc protrusion. Zncl-mk-ryoxfvhb left facet arthropathy. Ligamentum flavum thickening. Grossly moderate appearing spinal canal stenosis. Mild appearing bilateral neural foraminal stenosis L4-L5: Disc bulge. Ligamentum flavum thickening. Oooa-qj-fvclhdpb left and mild right facet arthropathy. Mild appearing bilateral neural foraminal stenosis. At least moderate spinal canal stenosis. L5-S1: Disc bulge. Severe right and moderate left facet arthropathy. Ostv-od-hwzlexfy bilateral neural foraminal stenosis. Mild appearing spinal [...] signed by Musa DAVENPORT T: Report ID: [id number] Reading Location: [place] [address] Procedure Note Musa Gomez MD - 08/31/2024 [...] Multilevel degenerative disc disease, most pronounced and cvwo-oq-tdfdkenfqh L3-L4. Vertebral body heights are normal and [...] disc bulge with superimposed central disc protrusion. Tbsf-uz-mmjolgww left facet arthropathy. Ligamentum flavum thickening. Grossly moderate appearing spinal canal stenosis. Mild appearingbilateral neural foraminal stenosis L4-L5: Disc bulge. Ligamentum flavum thickening. Eyjr-kj-prhugqqt leftand mild right facet arthropathy. Mild appearing bilateral neural foraminal stenosis. At least moderate spinal canal stenosis. L5-S1: Disc bulge. Severe right and moderate left facet arthropathy. Baaf-un-qqxigesj bilateral neural foraminal stenosis. Mild appearingspinal canal [...] Musa Gomez M.D. MZ T: Report ID: [id number] Reading Location: [id number] [address] [facility] [facility] CT PROCEDURES Edited Res ult - Final [...] by Musa Gomez M.D. MZ Report ID: [id number] Reading Location: [id number] Narrative 08/31/2024 5:50 PM CDT EXAM DESCRIPTION: [...] Multilevel degenerative disc disease, most pronounced and sayl-yr-dgevpfxd at L3-L4. Vertebral body heights are normal [...] disc bulge with superimposed central disc protrusion. Xset-tj-sgmmlvxx left facet arthropathy. Ligamentum flavum thickening. Grossly moderate appearing spinal canal stenosis. Mild appearing bilateral neural foraminal stenosis L4-L5: Disc bulge. Ligamentum flavum thickening. Abdk-vc-dirvifie left and mild right facet arthropathy. Mild appearing bilateral neural foraminal stenosis. At least moderate spinal canal stenosis. L5-S1: Disc bulge. Severe right and moderate left facet arthropathy. Ajcs-wz-fretiivh bilateral neural foraminal stenosis. Mild appearing spinal [...] Musa Gomez M.D. MZ T: Report ID: [id number] Reading Location: [id number] Procedure Note Musa Gomez MD - 08/31/2024 [...] Multilevel degenerative disc disease, most pronounced and wzpf-ll-vxyffljdgj L3-L4. Vertebral body heights are normal and [...] disc bulge with superimposed central disc protrusion. Lsoy-sx-lutyrmui left facet arthropathy. Ligamentum flavum thickening. Grossly moderate appearing spinal canal stenosis. Mild appearingbilateral neural foraminal stenosis L4-L5: Disc bulge. Ligamentum flavum thickening. Shxp-sj-krxzqeli leftand mild right facet arthropathy. Mild appearing bilateral neural foraminal stenosis. At least moderate spinal canal stenosis. L5-S1: Disc bulge. Severe right and moderate left facet arthropathy. Bqvw-xw-slzzhama bilateral neural foraminal stenosis. Mild appearingspinal canal [...] Musa Gomez M.D. MZ T: Report ID: [id number] Reading Location: [id number] [facility] CT PROCEDURES Edited Res ult - Final * (ABNORMAL) Urinalysis reflex to microscopic and culture Urine (08/31/2024 3:52 PM CDT) Color, ur Yellow Yellow Clarity, ur Clear Clear [facility] Specific gravity, ur 1.027 1.003 - 1.030 [facility] pH, urine 5.5 [facility] Comment: Interpretive Data U rine pH is affected by diet, medications, systemic acid-base disturbances, and renal tubular function. pH may affect urinary stone formation. For example, urine pH below 6.0 may help reduce the tendency for calcium phosphate stones and pH greater than 6.0 may reduce the tendency for uric acid stone formation. Source: [facility] Current Interpretive Data was last revised on 2017 Protein, ur ql Negative Negative [facility] Glucose, ur ql Negative Negative [facility] Ketones, ur Negative Negative [facility] Bilirubin, ur Negative Negative [facility] Blood, ur Negative Negative [facility] Urobilinogen, ur <2.0 <2.0 mg/dL [facility] Nitrite, ur Negative Negative [facility] Leukocyte esterase, ur 2+(A) Negative [facility] UA reflex comment Reflex to microscopic UA will be performed. [facility] Urine 08/31/2024 3:52 PM CDT 08/31/2024 3:56 PM CDT Ace [facility] LAB MICROBIOLOGY - GENERAL O RDERABLES Final Result [facility] [address] [facility] Department [place] [address] * (ABNORMAL) Urinalysis, microscopic only (08/31/2024 3:52 PM CDT) WBC, ur 0-5 0 - 5 /HPF RBC, ur 0-2 0 - 2 /HPF [facility] Epithelial cells, squamous, ur 1-5 0 - 5 /HPF [facility] Bacteria, ur Trace(A) [facility] Mucous, ur Present(A) [facility] Culture Reflex Comment Reflex conditions for urine culture (WBC >10) not met. [facility] Urine 08/31/2024 3:52 PM CDT 08/31/2024 3:56 PM CDT [facility] LAB URINE ORDERABLES Final R esult Performing Organization Address [facility] de Phone Number JOE [address] [address] * (ABNORMAL) eGFR (08/31/2024 3:51 PM CDT) [facility] eGFR 52(L) >=60 mL/min/1. 73 m2 Comment: [...] ORDERABLES Final R esult Performing Organization Address City/[facility] Co de Phone Number JOE [address] [place] [address] * Differential, auto (08/31/2024 3:51 PM CDT) [facility] Neutrophil abs 4.18 1.50 - 6.50 K/cumm Imm gran abs 0.02 0.00 - 0.10 K/cumm [facility] Lymphocyte abs 1.00 0.80 - 3.30 K/cumm [facility] Monocyte abs 0.45 0.20 - 0.80 K/cumm [facility] Eosinophil abs 0.17 0.00 - 0.50 K/cumm [facility] Basophil abs 0.05 0.00 - 0.10 K/cumm [facility] Neutrophil pct 71.2 % [facility] Comment: Interpretive Data Percent cell count reference ranges are not reported, since discordance with absolute values may lead to misinterpretation of CBC data. Current Interpretive Data was last revised on 2017. Imm gran pct 0.3 % [facility] Comment: Interpretive Data Percent cell count reference ranges are not reported, since discordance with absolute values may lead to misinterpretation of CBC data. Current Interpretive Data was last revised on 2017. Lymphocyte pct 17.0 % [facility] Comment: Interpretive Data Percent cell count reference ranges are not reported, since discordance with absolute values may lead to misinterpretation of CBC data. Current Interpretive Data was last revised on 2017. Monocyte pct 7.7 % [facility] Comment: Interpretive Data Percent cell count reference ranges are not reported, since discordance with absolute values may lead to misinterpretation of CBC data. Current Interpretive Data was last revised on 2017. Eosinophil pct 2.9 % [facility] Comment: Interpretive Data Percent cell count reference ranges are not reported, since discordance with absolute values may lead to misinterpretation of CBC data. Current Interpretive Data was last revised on 2017. Basophil pct 0.9 % [facility] Comment: Interpretive Data Percent cell count reference ranges are not reported, since discordance with absolute values may lead to misinterpretation of CBC data. Current Interpretive Data was last revised on 2017. Blood 08/31/2024 3:51 PM CDT 08/31/2024 3:56 PM CDT us [facility] LAB BLOOD ORDERABLES Final R esult JOE [address] [facility] [address] Department [place] [address] * (ABNORMAL) CBC with auto differential (08/31/2024 3:51 PM CDT) WBC 5.87 3.80 - 9.90 K/cumm Hgb 11.4(L) 11.9 - 15.5 g/dL [facility] Hct 34.9(L) 35.6 - 45.5 % [facility] Plt 224 150 - 400 K/cumm [facility] MPV 9.1 9.1 - 12.3 fL [facility] RBC 3.72(L) 3.90 - 5.20 M/cumm [facility] MCV 93.8 81.3 - 96.4 fL [facility] MCH 30.6 27.1 - 33.3 pg [facility] MCHC 32.7 32.3 - 35.7 g/dL [facility] RDW CV 11.9 11.1 - 14.9 % [facility] RDW SD 40.4 35.7 - 48.1 fL [facility] NRBC abs 0.00 0.00 - 0.01 K/cumm [facility] Blood Venous blood specimen / Unknown 08/31/2024 3:51 PM CDT 08/31/2024 3:56 PM CDT [facility] LAB BLOOD ORDERABLES Final R esult Performing Organization Address [facility] Co de Phone Number [address] [employer] [place], [place] [id number] * Lipase (08/31/2024 3:51 PM CDT) [facility] Lipase 28 10 - 99 Units/L Blood Venous blood specimen / Unknown 08/31/2024 3:51 PM CDT 08/31/2024 3:56 PM CDT Ace [facility] LAB BLOOD ORDERABLES Final R esult Performing Organization Address City/[facility] Co de Phone Number [address] [place] [address] * (ABNORMAL) Comprehensive metabolic panel (08/31/2024 3:51 PM CDT) [facility] Sodium 140 135 - 145 mmol/L Potassium, pl 4.1 3.3 - 4.9 mmol/L [facility] Chloride 102 97 - 110 mmol/L [facility] CO2 27 22 - 32 mmol/L [facility] Anion gap 11 2 - 15 mmol/L [facility] BUN 20 6 - 25 mg/dL [facility] Creatinine 1.14(H) 0.60 - 1.10 mg/dL [facility] Glucose 112 70 - 199 mg/dL [facility] Comment: Interpretive Data Fasting glucose >/= 126 [...] 2022. Calcium 9.1 8.5 - 10.3 mg/dL [facility] Bilirubin, total 0.3 0.1 - 1.2 mg/dL [facility] Protein, pl 6.8 6.5 - 8.5 g/dL [facility] Albumin 4.1 3.5 - 5.0 g/dL [facility] Alk phos 125 40 - 130 Units/L [facility] ALT 24 7 - 45 Units/L [facility] AST 21 10 - 45 Units/L [facility] Blood Venous blood specimen / Unknown 08/31/2024 3:51 PM CDT 08/31/2024 3:56 PM CDT Ace [facility] LAB BLOOD ORDERABLES Final R esult [facility] [address] [facility] [facility] Department [place] [address] * (ABNORMAL) POCT urinalysis dipstick (08/30/2024 3:05 PM CDT) Glucose, ur, POC Negative Negative MG/DL Bilirubin, ur, POC Small Negative, Small, Moderate, Large Ketones, ur, POC Negative Negative Specific [place], POC 1.030 1.003 - 1.030 Blood, ur, POC Negative Negative pH, ur, POC 5.5 5.0 - 8.0 Protein, ur, POC 100.(A) Negative Urobilinogen, urine, POC 0.2 0.2 - 1.0 mg/dL Nitrite, ur, POC Negative Negative Leukocytes, ur, POC Negative Negative Lot Number [id number] Urine 08/30/2024 3:05 PM CDT Nini DESIR POINT OF CARE TEST ORDERAB LES Final Result * Urine culture Urine, clean voided (08/30/2024 2:57 PM CDT) Urine culture [facility]- marisol Rivas Comment: CULTURE, URINE, ROUTINE Micro Number: [id number] Test Status: Final Specimen Source: Clean void [...] LAB MICROBIOLOGY - GENERAL ORDERABLES Final Result [facility] [address] [place] [address] * Differential, auto (07/29/2024 4:25 PM RN FIELD) Neutrophil abs 3.5 1.5 - 6.5 K/cumm Imm gran abs 0.0 0.0 - 0.1 K/cumm [facility] Lymphocyte abs 1.4 0.8 - 3.3 K/cumm [facility] Monocyte abs 0.4 0.2 - 0.8 K/cumm [facility] Eosinophil abs 0.3 0.0 - 0.5 K/cumm [facility] Basophil abs 0.1 0.0 - 0.1 K/cumm [facility] Neutrophil pct 61.6 % [facility] Comment: Interpretive Data Percent cell count reference ranges are not reported, since discordance with absolute values may lead to misinterpretation of CBC data. Current Interpretive Data was last revised on 2017. Imm gran pct 0.4 % [facility] Comment: Interpretive Data Percent cell [...] revised on 2017. Monocyte pct 7.4 % [facility] Comment: Interpretive Data Percent cell [...] revised on 2017. Blood 07/29/2024 4:25 PM RN FIELD 07/29/2024 4:25 PM RN FIELD Gianna Baker NP LAB BLOOD ORDERABLES Final Result JOE [address] Department [place] [address] * (ABNORMAL) CBC with auto differential (07/29/2024 4:25 PM RN FIELD) WBC 5.7 3.8 - 9.9 K/cumm Hgb 12.2 11.9 - 15.5 g/dL [facility] Hct 37.4 35.6 - 45.5 % [facility] Plt 257 150 - 400 K/cumm [facility] MPV 8.9(L) 9.1 - 12.3 fL [facility] RBC 3.89(L) 3.90 - 5.20 M/cumm [facility] MCV 96.1 81.3 - 96.4 fL [facility] MCH 31.4 27.1 - 33.3 pg [facility] MCHC 32.6 32.3 - 35.7 g/dL [facility] RDW CV 11.9 11.1 - 14.9 % [facility] RDW SD 41.6 35.7 - 48.1 fL [facility] NRBC abs 0.00 0.00 - 0.01 K/cumm [facility] Blood 07/29/2024 4:25 PM RN FIELD 07/29/2024 4:25 PM RN FIELD Gianna Baker NP LAB BLOOD ORDERABLES Final Result JOE DUPREE [address] [facility] [employer], [place] [id number] * Sepsis Lactate w/ Reflex (07/29/2024 4:16 PM RN FIELD) Pathologist [facility] Sepsis Lactate 0.7 0.7 - 2.0 mmol/L Blood 07/29/2024 4:16 PM RN FIELD 07/29/2024 4:23 PM RN FIELD Gianna Baker NP LAB BLOOD ORDERABLES Final Result [facility] [address] [place] [address] * (ABNORMAL) eGFR (07/29/2024 4:16 PM RN FIELD) Pathologist [facility] eGFR 48(L) >=60 mL/min/1. 73 m2 Comment: [...] last reviewed 2021. Blood 07/29/2024 4:16 PM RN FIELD 07/29/2024 4:23 PM RN FIELD us Gianna Baker NP LAB BLOOD ORDERABLES Final Result [facility] [address] Department [place] [address] * (ABNORMAL) Comprehensive metabolic panel (07/29/2024 4:16 PM RN FIELD) Sodium 142 135 - 145 mmol/L Potassium, pl 4.5 3.3 - 4.9 mmol/L [facility] Chloride 103 97 - 110 mmol/L [facility] CO2 27 22 - 32 mmol/L [facility] Anion gap 12 2 - 15 mmol/L [facility] BUN 22 6 - 25 mg/dL [facility] Creatinine 1.22(H) 0.60 - 1.10 mg/dL [facility] Glucose 97 70 - 199 mg/dL [facility] Comment: Interpretive Data Fasting glucose >/= 126 [...] classification and Diagnosis of Diabetes Diabetes Care 2021; 46: S19-S40. Current interpretive data was last [...] Units/L [facility] Blood 07/29/2024 4:16 PM RN FIELD 07/29/2024 4:23 PM RN FIELD Gianna Baker NP LAB BLOOD ORDERABLES Final Result JOE DUPREE [address] Department [place] [address] * XR Chest Pa Lateral 2 Vw (07/29/2024 3:52 PM RN FIELD) Anatomical Region Laterality Modality Body, Chest N/A Computed Radiogr aphy 07/29/2024 4:02 PM RN FIELD Impressions 07/29/2024 4:02 PM RN FIELD No active disease. Electronically signed by: Johnson Handley M.D. Narrative 07/29/2024 4:02 PM RN FIELD EXAMINATION: XR CHEST PA LATERAL 2 VIEWS [...] signed by: Johnson Handley M.D. Gianna Baker [employer] IMG XR PROCEDURES Fi nal Result * Respiratory pathogen panel Nasopharyngeal (07/29/2024 3:28 PM RN FIELD) Influenza A RNA Not Detected Not Detected Influenza B RNA Not Detected Not Detected [facility] RSV RNA Not Detected Not Detected [facility] COVID-19 RNA Not Detected Not Detected [facility] Coronavirus 229E RNA Not Detected Not Detected [facility] Coronavirus HKU1 RNA Not Detected Not Detected [facility] Coronavirus NL63 RNA Not Detected Not Detected [facility] Coronavirus OC43 RNA Not Detected Not Detected [facility] Adenovirus DNA Not Detected Not Detected [facility] Metapneumovirus RNA Not Detected Not Detected [facility] Rhinovirus/Enterov irus RNA Not Detected Not Detected [facility] Parainfluenza 1 RNA Not Detected Not Detected [facility] Parainfluenza 2 RNA Not Detected Not Detected [facility] Parainfluenza 3 RNA Not Detected Not Detected [facility] Parainfluenza 4 RNA Not Detected Not Detected [facility] B. pertussis DNA Not Detected Not Detected [facility] B. parapertussis DNA Not Detected Not Detected [facility] C. pneumoniae DNA Not Detected Not Detected [facility] M. pneumoniae DNA Not Detected Not Detected [facility] Comment: Interpretive Data The [employer]Zon FilmArray Respiratory Panel (RP2.1) assay is a [...] assay has FDA clearance for testing of VEST [employer]ER swabs. The performance characteristics of this assay have been determined by [facility]. Current interpretive data was last revised on 2020. Nasopharyngeal 07/29/2024 3: 28 PM RN FIELD 07/29/2024 3:37 PM RN FIELD Narrative [facility] - 07/29/2024 4:33 PM RN FIELD Is the Patient experiencing symptoms consistent with COVID?->Yes Surveillance testing for transplant patient?->No Gianna Baker [employer] LAB MICROBIOLOGY - G ENERAL ORDERABLES Final Result JOE [address] Department [place] [address] CH * (ABNORMAL) Urinalysis reflex to microscopic and culture Urine (07/26/2024 3:51 PM RN FIELD) Color, ur Yellow Yellow Clarity, ur Turbid(A) Clear JOE Specific gravity, ur 1.019 1.003 - 1.030 JOE pH, urine 6.5 JOE Comment: Interpretive Data U rine pH is affected by diet, medications, systemic acid-base disturbances, and renal tubular function. pH may affect urinary stone formation. For example, urine pH below 6.0 may help reduce the tendency for calcium phosphate stones and pH greater than 6.0 may reduce the tendency for uric acid stone formation. Source: [facility] [place] Current Interpretive Data was last revised on [...] Reflex to microscopic UA will be performed. [facility] Urine 07/26/2024 3:51 PM RN FIELD 07/26/2024 4:04 PM RN FIELD Pedro Kerr MD LAB MICROBIOLOGY - GENER AL ORDERABLES Final Result Performing Organization Address [facility] Co de Phone Number JOE DUPREE [address] [place] [address] * (ABNORMAL) Urinalysis, microscopic only (07/26/2024 3:51 PM RN FIELD) WBC, ur 11-20(A) 0 - 5 /HPF RBC, ur 0-2 0 - 2 /HPF [facility] Epithelial cells, squamous, ur 11-20(A) 0 - 5 /HPF [facility] Mucous, ur Present(A) [facility] Culture Reflex Comment Reflex to urine culture will be performed. [facility] Urine 07/26/2024 3:51 PM RN FIELD 07/26/2024 4:04 PM RN FIELD Pedro Kerr MD LAB URINE ORDERABLES Fin al Result Performing Organization Address [facility] Co de Phone Number JOE [address] [place] [address] * Urine culture Urine (07/26/2024 3:51 PM RN FIELD) Report Final Report: Less than 100,000 colonies/mL (clinically insignificant growth based on current clinical standards) Comment:Testing performed by : [facility], [address] [facility] [place]., [address] Organism (CLINICALLY INSIGNIFICANT GROWTH [facility] Urine 07/26/2024 3:51 PM RN FIELD 07/26/2024 5:57 PM RN FIELD Narrative JOE - 07/27/2024 6:59 PM RN FIELD Urine culture reflexed based upon urinalysis results. Testing performed by [facility] Microbiology Laboratory ([phone]) Pedro Kerr MD LAB MICROBIOLOGY - [facility] AL ORDERABLES Final Result Performing Organization Address City/[facility] Co de Phone Number [facility] [address] Department [place] [address] * ECG 12 lead (07/26/2024 3:21 PM RN FIELD) 07/26/2024 3:21 PM RN FIELD Narrative [facility] - 07/26/2024 3:45 PM RN FIELD Vent Rate: 77 bpm RR Interval: 771 msec [place] Interval: 156 msec QRS Duration: 81 msec QT Interval: 348 msec QTC Interval: 380 msec P-R-T [place]: 40 - 6 - -17 degrees IMPRESSION: SINUS RHYTHM LOW QRS VOLTAGE IN PRECORDIAL LEADS [QRS DEFLECTION < 1.0 mV IN CHEST LEADS] BORDERLINE ECG NO CHANGE FROM PREVIOUS TRACING NOTED Electronically Signed By: Jorge Leggett MD us Pedro Kerr MD ECG ORDERABLES Final Re sult Performing Organization Address [facility] Co de Phone Number [facility] [employer] [address] [facility] * (ABNORMAL) eGFR (07/26/2024 11:55 AM RN FIELD) eGFR 49(L) >=60 mL/min/1. 73 m2 Comment: [...] reviewed 2021. Blood 07/26/2024 11:5 5 AM RN FIELD 07/26/2024 12:07 PM RN FIELD Fredrick DESIR LAB BLOOD ORDERABLES Final Result [facility] [address] Department [place] [address] * (ABNORMAL) Differential, auto (07/26/2024 11:55 AM RN FIELD) Neutrophil abs 5.3 1.5 - 6.5 K/cumm Imm gran abs 0.0 0.0 - 0.1 K/cumm [facility] Lymphocyte abs 0.7(L) 0.8 - 3.3 K/cumm [facility] Monocyte abs 0.3 0.2 - 0.8 K/cumm [facility] Eosinophil abs 0.1 0.0 - 0.5 K/cumm [facility] Basophil abs 0.1 0.0 - 0.1 K/cumm [facility] Neutrophil pct 82.3 % [facility] Comment: Interpretive Data Percent cell count reference ranges are not reported, since discordance with absolute values may lead to misinterpretation of CBC data. Current Interpretive Data was last revised on 2017. Imm gran pct 0.3 % [facility] Comment: Interpretive Data Percent cell count reference ranges are not reported, since discordance with absolute values may lead to misinterpretation of CBC data. Current Interpretive Data was last revised on 2017. Lymphocyte pct 11.0 % [facility] Comment: Interpretive Data Percent cell count reference ranges are not reported, since discordance with absolute values may lead to misinterpretation of CBC data. Current Interpretive Data was last revised on 2017. Monocyte pct 3.9 % [facility] Comment: Interpretive Data Percent cell count reference ranges are not reported, since discordance with absolute values may lead to misinterpretation of CBC data. Current Interpretive Data was last revised on 2017. Eosinophil pct 1.4 % [facility] Comment: Interpretive Data Percent cell count reference ranges are not reported, since discordance with absolute values may lead to misinterpretation of CBC data. Current Interpretive Data was last revised on 2017. Basophil pct 1.1 % [facility] Comment: Interpretive Data Percent cell count reference ranges are not reported, since discordance with absolute values may lead to misinterpretation of CBC data. Current Interpretive Data was last revised on 2017. Blood 07/26/2024 11:5 5 AM RN FIELD 07/26/2024 12:07 PM RN FIELD Fredrick DESIR LAB BLOOD ORDERABLES Final Result [facility] [address] Department [place] [address] * (ABNORMAL) CBC with auto differential (07/26/2024 11:55 AM RN FIELD) WBC 6.5 3.8 - 9.9 K/cumm Hgb 11.9 11.9 - 15.5 g/dL [facility] Hct 37.1 35.6 - 45.5 % [facility] Plt 278 150 - 400 K/cumm [facility] MPV 8.9(L) 9.1 - 12.3 fL [facility] RBC 3.85(L) 3.90 - 5.20 M/cumm [facility] MCV 96.4 81.3 - 96.4 fL [facility] MCH 30.9 27.1 - 33.3 pg [facility] MCHC 32.1(L) 32.3 - 35.7 g/dL [facility] RDW CV 12.2 11.1 - 14.9 % [facility] RDW SD 43.5 35.7 - 48.1 fL [facility] NRBC abs 0.00 0.00 - 0.01 K/cumm [facility] Blood Venous blood specimen / Unknown 07/26/2024 11:55 AM RN FIELD 07/26/2024 12:07 PM RN FIELD Fredrick DESIR LAB [place]LOOD [place] [address] [place] [address] * (ABNORMAL) Comprehensive metabolic panel (07/26/2024 11:55 AM RN FIELD) Sodium 138 135 - 145 mmol/L Potassium, [...] classification and Diagnosis of Diabetes Diabetes Care 2021; 46: S19-S40. Current interpretive data was last [...] [facility] Blood 07/26/2024 11:5 5 AM RN FIELD 07/26/2024 12:07 PM RN FIELD us Fredrick DESIR LAB BLOOD ORDERABLES Final Result JOE DUPREE [address] Department [place] [address] * CT Head WO Contrast (07/26/2024 11:28 AM RN FIELD) Anatomical Region Laterality Modality Head and Neck N/A Computed Tomogra phy 07/26/2024 1:31 PM RN FIELD Impressions 07/26/2024 1:31 PM RN FIELD No intracranial bleed, mass or acute infarct. Electronically signed by: Johnson Handley M.D. Narrative 07/26/2024 1:31 PM RN FIELD EXAMINATION: CT HEAD WO CONTRAST HISTORY: The [...] signed by: Johnson Handley M.D. Fredrick DESIR IMG CT PROCEDURES Final Re sult * Dexa Axial Skeleton Bone Density 1 or 2 Site (04/18/2021 1:33 PM RN FIELD) Anatomical Region Laterality Modality Body N/A Other 04/18/2021 2:00 PM RN FIELD Narrative 04/18/2021 2:02 PM RN FIELD EXAM DESCRIPTION: DEXA AXIAL SKELETON BONE DENSITY 1 OR MORE SITES REASON FOR STUDY: Post-menopausal female, screening for osteoporosis. Mixing Machine Feeder/Model: Chanyouji (S/N [id number]) CLINICAL INFORMATION: Current height: 63 inches Maximum [...] 2:02 PM - Electronically signed by Zheng Peng.D. AB: Report ID: [id number] Reading Location: [id number] Procedure Note Zheng Mcgee MD - 04/18/2021 EXAM DESCRIPTION: DEXA AXIAL SKELETON BONE DENSITY 1 OR MORE SITES REASON FOR STUDY: Post-menopausal female, screening for osteoporosis. Mixing Machine Feeder/Model: PagerD[employer] SL (S/N [id number]) CLINICAL INFORMATION: Current height: 63 inches Maximum [...] by Zheng Mcgee M.D. AB: Report ID: [id number] Reading Location: [id number] Nini [facility]IR IMG DXA PROCEDURES Final R esult from Last 3 Months or Most Recently Relevant to Health Maintenance Insurance [facility] MEDICARE MEDICARE ANTHEM ACCESS CHOICE Advance Directives For more information, please contact: [phone] * Full Code (Latest Code Status on File) Date Activated Date Inactivated Comments 09/12/2022 4:45 PM 09/13/2022 6:54 PM Care Teams Light Cleaner Relationship Specialty Start Date End Date Nini Kramer PA [address] [facility] [address] [place] [address] PCP - General Internal Medicine 10/03/20 Lotus Baptiste MD [address] [place] [address] [facility], [address] [address] Consulting Physician Pain Management 05/01/22 Dilan Duncan MD [facility] [address] Consulting Physician Cardiology 01/28/24
--- OUTSIDE RECORDS SUMMARY | 2024-10-20 10:27 | XMS_ITS | Encounter Summary ---
Author Organization [facility] Healthcare Address [address] [place] [address] Care Team Providers Care Database Consultant Name Role Phone Nini Kramer Primary Care Provider [phone] Lotus Baptiste MD Unavailable Dilan Duncan MD Unavailable Jesi Lafleur CMA Unavailable Dali Orellana MA Unavailable Encounter Details Date Type Department Care Team (Late st Contact Info) Description 09/01/2024 Results Follow-Up [facility] Medical [facility] Family Medicine [address] [place] [address] Nini Kramer PA [address] [place] [address] Urine culture Urine, clean voided Social History Tobacco Use Types Packs/Day Years Used Date Smoking Tobacco: Never Smokeless Tobacco: Never Alcohol Use Standard Drinks/Week Comments Not Currently 0 (1 standard drink = 0.6 oz pur e alcohol) [facility] Utilities Answer Date Recorded In the past [...] often do you attend chur ch or judaism services? Never 04/28/2024 Do you belong to any clubs o r organizations such as roman catholic groups, unions, fraternal or athletic groups, or [...] any time in the past 12 m [facility], were you homeless or living in a fpc (including now)? No 04/28/2024 Personal Safety Answer Date Recorded Have you ever been in or are you currently in a harmful physical or emotional relationship or is someone making you feel afraid or unsafe? Denies 08/31/2024 Comments No Sex and Gender Information Value Date Recorded Sex Assigned at Not on file Legal Sex Female 12:20 AM [employer] Gender Identity Not on file Sexual Orientation Not on file documented as of this encounter Plan of Treatment Not on file documented as of this encounter Visit Diagnoses Not on filedocumented in this encounter Additional Health Concerns Infection Onset Date Last Indicated Resolved Time COVID: Recovered Comment:Added based on recent COVID infection. 06/19/2024 07/05/2024 09/17/2024 3:06 AM C DT COVID: Suspected 10/13/2024 10/13/2024 10/13/2024 9:29 AM CDT documented as of this encounter Care Teams Database Consultant Relationship Specialty Start Date End Date Nini Kramer PA [address] [facility] [address] [place] [address] PCP - General Internal Medicine 10/03/20 Lotus Baptiste MD [facility], [facility] [address] [place] [address] Consulting Physician Pain Management 05/01/22 Dilan Duncan MD [facility], [facility] [address] [place] [address] Consulting Physician Cardiology 01/28/24 Jesi Lafleur CMA [address] [place] [address] [address] [place] [address] [employer] Administrative Assistant 09/01/24 09/05/24 Dali Orellana MA [address] [place] [address] [employer] Administrative Assistant 09/06/24 09/07/24 documented as of this encounter
--- OUTSIDE RECORDS SUMMARY | 2024-10-20 10:27 | XMS_ITS | Patient Health Record ---
Author Organization [facility] As [facility] Address [address] [facility] [address] [place] [address] Care Team Providers Care [place] Bog Supervisor Name Role Phone Soledad Kramer PA-C Primary Care Provider Unapoppy Jluis Valdovinos Unavailable [phone] Jeffcarlin Sena Unavailable [phone] Allergies Allergen (clinical drug ingredient) Drug/Non Drug Allergy documented on EMR Reaction Allergy Type Onset Date Status levofloxacin levoFLOXacin Unknown Drug Allergy 10/15/2023 Active Compazine Unknown Drug Allergy 10/15/2023 Active Results Component Value Reference Range Notes UDT Reviewed date:11/20/2023 11:15:32 AM Interpretation: Performing Lab: Notes/Report: THC neg 0 - 50 ng/ml Cocaine neg Amphetamine neg Buprenorphine (BUP) pos Secobarbital (Bar) neg Oxazepam (BZO) neg 6-spkwvmkpur-4,6-hfbiqxju-6, 3-diph enylpyrrolidine (EDDP) neg Methamphetamine (MET) neg Methylenedioxymethamphetamin e (MDMA) neg Morphine (MOP 300/NHF2006) neg Methadone (MTD) neg Phencyclidine (PCP) neg Nortriptyline (TCA) neg x neg UDT Reviewed date:12/18/2023 05:29:28 PM Interpretation: Performing Lab: Notes/Report: THC NEG 0 - 50 ng/ml Cocaine NEG 0 - 300 ng/ml Amphetamine NEG 0 - 1000 ng/ml Buprenorphine (BUP) POS 0 - 10 ng/ml Secobarbital (Bar) NEG 0 - 300 ng/ml Oxazepam (BZO) NEG 0 - 300 ng/ml 9-yujysrnjxx-3,8-nfkmzkvu-8, 3-diph enylpyrrolidine (EDDP) NEG 0 - 300 ng/ml Methamphetamine (MET) NEG 0 - 1000 ng/ml Methylenedioxymethamphetamin e (MDMA) NEG 0 - 500 ng/ml Morphine (MOP 300/EIT1009) NEG 0 - 300 ng/ml Methadone (MTD) NEG 0 - 300 ng/ml Phencyclidine (PCP) NEG 0 - 25 ng/ml Nortriptyline (TCA) NEG 0 - 1000 ng/ml Oxycodone NEG 0 - 300 ng/ml x NEG 0 - 300 ng/ml UDT Reviewed date:02/12/2024 11:06:43 AM Interpretation: Performing Lab: Notes/Report: THC NEG 0 - 50 ng/ml Cocaine NEG 0 - 300 ng/ml Amphetamine NEG 0 - 1000 ng/ml Buprenorphine (BUP) POS 0 - 10 ng/ml Secobarbital (Bar) NEG 0 - 300 ng/ml Oxazepam (BZO) NEG 0 - 300 ng/ml 8-ttteyhrnxh-2,6-kkykqydl-6, 3-diph enylpyrrolidine (EDDP) NEG 0 - 300 ng/ml Methamphetamine (MET) NEG 0 - 1000 ng/ml Methylenedioxymethamphetamin e (MDMA) NEG 0 - 500 ng/ml Morphine (MOP 300/LEO3188) NEG 0 - 300 ng/ml Methadone (MTD) NEG 0 - 300 ng/ml Phencyclidine (PCP) NEG 0 - 25 ng/ml Nortriptyline (TCA) NEG 0 - 1000 ng/ml Oxycodone NEG 0 - 300 ng/ml x NEG 0 - 300 ng/ml UDT Reviewed date:05/05/2024 02:57:23 PM Interpretation: Performing Lab: Notes/Report: THC NEG 0 - 50 ng/ml Cocaine NEG 0 - 300 ng/ml Amphetamine NEG 0 - 1000 ng/ml Buprenorphine (BUP) POS 0 - 10 ng/ml Secobarbital (Bar) NEG 0 - 300 ng/ml Oxazepam (BZO) POS 0 - 300 ng/ml 0-brvmhpxtzr-7,9-nztqceic-8, 3-diph enylpyrrolidine (EDDP) NEG 0 - 300 ng/ml Methamphetamine (MET) NEG 0 - 1000 ng/ml Methylenedioxymethamphetamin e (MDMA) NEG 0 - 500 ng/ml Morphine (MOP 300/HMK1981) NEG 0 - 300 ng/ml Methadone (MTD) NEG 0 - 300 ng/ml Phencyclidine (PCP) NEG 0 - 25 ng/ml Nortriptyline (TCA) NEG 0 - 1000 ng/ml Oxycodone NEG 0 - 300 ng/ml UDT Reviewed date:07/15/2024 01:03:41 PM Interpretation: Performing Lab: Notes/Report: THC N 0 - 50 ng/ml Cocaine N 0 - 300 ng/ml Amphetamine N 0 - 1000 ng/ml Buprenorphine (BUP) P 0 - 10 ng/ml Secobarbital (Bar) N 0 - 300 ng/ml Oxazepam (BZO) N 0 - 300 ng/ml 6-lpouxfphuj-7,8-mxkyyyqp-1, 3-diph enylpyrrolidine (EDDP) N 0 - 300 ng/ml Methamphetamine (MET) N 0 - 1000 ng/ml Methylenedioxymethamphetamin e (MDMA) N 0 - 500 ng/ml Morphine (MOP 300/DHI8628) N 0 - 300 ng/ml Methadone (MTD) N 0 - 300 ng/ml Phencyclidine (PCP) N 0 - 25 ng/ml Nortriptyline (TCA) N 0 - 1000 ng/ml Oxycodone N 0 - 300 ng/ml x N 0 - 300 ng/ml UDT Reviewed date:09/16/2024 03:07:36 PM Interpretation: Performing Lab: Notes/Report: THC NEG 0 - 50 ng/ml Cocaine NEG 0 - 300 ng/ml Amphetamine NEG 0 - 1000 ng/ml Buprenorphine (BUP) POS 0 - 10 ng/ml Secobarbital (Bar) NEG 0 - 300 ng/ml Oxazepam (BZO) NEG 0 - 300 ng/ml 1-rskbrwcvmf-2,5-uviqxvqd-2, 3-diph enylpyrrolidine (EDDP) NEG 0 - 300 ng/ml Methamphetamine (MET) NEG 0 - 1000 ng/ml Methylenedioxymethamphetamin e (MDMA) NEG 0 - 500 ng/ml Morphine (MOP 300/EBN8928) NEG 0 - 300 ng/ml Methadone (MTD) NEG 0 - 300 ng/ml Phencyclidine (PCP) NEG 0 - 25 ng/ml Nortriptyline (TCA) NEG 0 - 1000 ng/ml Oxycodone NEG 0 - 300 ng/ml x NEG 0 - 300 ng/ml UDT Reviewed date:10/15/2024 03:19:37 PM Interpretation: Performing Lab: Notes/Report: THC NEG 0 - 50 ng/ml Cocaine NEG 0 - 300 ng/ml Amphetamine NEG 0 - 1000 ng/ml Buprenorphine (BUP) POS 0 - 10 ng/ml Secobarbital (Bar) NEG 0 - 300 ng/ml Oxazepam (BZO) NEG 0 - 300 ng/ml 7-kcntetaufs-5,1-evjyfehc-3, 3-diph enylpyrrolidine (EDDP) NEG 0 - 300 ng/ml Methamphetamine (MET) NEG 0 - 1000 ng/ml Methylenedioxymethamphetamin e (MDMA) NEG 0 - 500 ng/ml Morphine (MOP 300/VVS9708) NEG 0 - 300 ng/ml Methadone (MTD) NEG 0 - 300 ng/ml Phencyclidine (PCP) NEG 0 - 25 ng/ml Nortriptyline (TCA) NEG 0 - 1000 ng/ml Oxycodone NEG 0 - 300 ng/ml x NEG 0 - 300 ng/ml DRUG MONITOR, BUP AND NALOXO NE,QN,URINE ([id number]) Reviewed date:12/24/2023 05:24:01 PM Interpretation: Performing Lab:MAURICIO [employer] Raghavendra-Shivam [address] [facility] Sb Robins, Director - [address] [facility] Notes/Report: FASTING: NO Buprenorphine 215 <2 ng/mL medMATCH Buprenorphine CONSISTENT Norbuprenorphine 136 <2 ng/mL medMATCH Norbuprenorphine CONSISTENT Naloxone NEGATIVE <2 ng/mL Buprenorphine Comments See B uprenorphine Notes, LDT Notes Notes and Comments This drug testing is for medical treatment only. Analysis was performed as non-forensic testing and these results should be used only by healthcare providers to render diagnosis or treatment, or to monitor progress of medical conditions. Buprenorphine Notes: Buprenorphine, Norbuprenorphine detected is consistent with the use of the drug(s) Buprenorphine or Buprenorphine with Naloxone. Naloxone may be negative due to poor oral bioavailability and/or short half-life. LDT Notes: Confirmation tests were developed and their analytical performance characteristics have been determined by [employer]. It has not been cleared or approved by the FDA. This assay has been validated pursuant to the CLIA regulations and is used for clinical purposes. medMATCH(R) enables providers to identify if drug use is consistent or inconsistent with a corresponding prescribed medication(s) list. Healthcare Providers needing Interpretation assistance, please contact us at [phone] ( ) M-F, 8am to 10pm EST PRESCRIBED DRUGS, medMATCH(R ) ([id number]) Reviewed date:12/24/2023 05:24:01 PM Interpretation: Performing Lab:THERON [facility]-[address], CncgufBY[address] Gisell Paredes MD Notes/Report: FASTING: NO medMATCH Summary Prescribed Prescribed Not Prescribed Consistent Inconsistent Inconsistent Sublocade(TM) Prescribed Drug 1 Sublocade(TM) DRUG MONITOR,AMPHETAMINE, QN , URINE ([id number]) Reviewed date:01/31/2024 11:47:20 AM Interpretation: Performing Lab:MAURICIO [employer]-[address], [place] NrudES[address] Sb Robins Notes/Report: FASTING: NO Amphetamine NEGATIVE <250 ng/mL Methamphetamine NEGATIVE <250 ng/mL Amphetamines Comments See LD T Notes DRUG MONITOR, BENZO, QN, URI NE ([id number]) Reviewed date:01/31/2024 11:47:20 AM Interpretation: Performing Lab:MAURICIO [employer] [address] BlJoy Media Group, Micell TechnologiesJpqmWQ[address] Sb Robins Notes/Report: FASTING: NO Alphahydroxyalprazolam NEGATIVE <25 ng/mL Alphahydroxymidazolam NEGATIVE <50 ng/mL Alphahydroxytriazolam NEGATIVE <50 ng/mL Aminoclonazepam NEGATIVE <25 ng/mL Hydroxyethylflurazepam NEGATIVE <50 ng/mL Lorazepam NEGATIVE <50 ng/mL Nordiazepam NEGATIVE <50 ng/mL Oxazepam NEGATIVE <50 ng/mL Temazepam NEGATIVE <50 ng/mL Benzodiazepines Comments See LDT Notes DRUG MONITOR, MARIJUANA META B, QN, URINE ([id number]) Reviewed date:01/31/2024 11:47:20 AM Interpretation: Performing Lab:MAURICIO, [employer] [facility]-[place] [address], [place] VsurWF[address] Sb Robins Notes/Report: FASTING: NO Marijuana Metabolite NEGATIVE <5 ng/mL Marijuana Comments See LDT N otes DRUG MONITOR, METHADONE META B, QN, URINE ([id number]) Reviewed date:01/31/2024 11:47:21 AM Interpretation: Performing Lab:MAURICIO, [employer] [address], [place] ZinaDV[address] Sb Robins Notes/Report: FASTING: NO EDDP NEGATIVE <100 ng/mL Methadone NEGATIVE <100 ng/mL Methadone Comments See LDT N otes DRUG MONITOR, OPIATES EXPAND ED, QN, URINE ([id number]) Reviewed date:01/31/2024 11:47:21 AM Interpretation: Performing Lab:MAURICIO [employer]-[place] [address], [place] IubaTK[address] Sb Robins Notes/Report: FASTING: NO Codeine NEGATIVE <50 ng/mL Hydrocodone NEGATIVE <50 ng/mL Hydromorphone NEGATIVE <50 ng/mL Morphine NEGATIVE <50 ng/mL Norhydrocodone NEGATIVE <50 ng/mL Opiates Comments See LDT Not es Noroxycodone NEGATIVE <50 ng/mL Oxycodone NEGATIVE <50 ng/mL Oxymorphone NEGATIVE <50 ng/mL Oxycodone Comments See LDT N otes DRUG MONITOR, FENTANYL, QN, URINE ([id number]) Reviewed date:01/31/2024 11:47:21 AM Interpretation: Performing Lab:MAURICIO [employer] [address], [place] NangNO[address] Sb Robins Notes/Report: FASTING: NO Fentanyl NEGATIVE <0.5 ng/mL Norfentanyl NEGATIVE <0.5 ng/mL Fentanyl Comments See LDT No makeda DRUG MONITOR, BUP AND NALOXO NE,QN,URINE ([id number]) Reviewed date:01/31/2024 11:47:21 AM Interpretation: Performing Lab:MAURICIO, [employer] [address], [place] FciuVA[address] Sb Robins Notes/Report: FASTING: NO Buprenorphine 152 <2 ng/mL Norbuprenorphine 135 <2 ng/mL Naloxone NEGATIVE <2 ng/mL Buprenorphine Comments See B uprenorphine Notes, LDT Notes DRUG MONITOR, MDMA/MDA, QN, URINE ([id number]) Reviewed date:01/31/2024 11:47:21 AM Interpretation: Performing Lab:CB, [employer]-[place] [address], [place] YuacTY[address] Sb Robins Notes/Report: FASTING: NO MDA NEGATIVE <200 ng/mL MDMA NEGATIVE <200 ng/mL MDMA Comments See LDT Notes DRUG MONITOR, COCAINE METAB, QN, URINE ([id number]) Reviewed date:01/31/2024 11:47:21 AM Interpretation: Performing Lab:CB, [employer]-Micell Technologiese[address], EdupathAsxqYH[address] Sb Robins Notes/Report: FASTING: NO Benzoylecgonine NEGATIVE <100 ng/mL Cocaine Comments See LDT Not es DRUG MONITOR, METHAMPHETAMIN E D/L,U ([id number]) Reviewed date:01/31/2024 11:47:21 AM Interpretation: Performing Lab:CB, [employer]-[place] [address], [place] JkhhTT[address] Sb Robins Notes/Report: FASTING: NO d Methamphetamine 0 l Methamphetamine 0 D/L Methamphet Comments See LDT Notes DRUG MONITOR, NALTREXONE, QN , URIN ([id number]) Reviewed date:01/31/2024 11:47:21 AM Interpretation: Performing Lab:AT, [employer] [facility]-Cdxpmyw0980 [facility] IslandA[address] [address] Zheng Beltre, Director - [address] [place] KonokopiaNov[facility] Notes/Report: FASTING: NO Naltrexone NEGATIVE <5 ng/mL 6 Beta Naltrexol NEGATIVE <5 ng/mL Naltrexone Comments See LDT Notes Notes and Comments This drug testing is for medical treatment only. Analysis was performed as non-forensic testing and these results should be used only by healthcare providers to render diagnosis or treatment, or to monitor progress of medical conditions. Buprenorphine Notes: Buprenorphine, Norbuprenorphine detected is consistent with the use of the drug(s) Buprenorphine or Buprenorphine with Naloxone. Naloxone may be negative due to poor oral bioavailability and/or short half-life. LDT Notes: Confirmation tests were developed and their analytical performance characteristics have been determined by [employer]. It has not been cleared or approved by the FDA. This assay has been validated pursuant to the CLIA regulations and is used for clinical purposes. Healthcare Providers needing Interpretation assistance, please contact us at [phone] ( ) M-F, 8am to 10pm EST DRUG MONITOR,AMPHETAMINE, W/ DL, QN URINE ([id number]) Reviewed date:02/20/2024 09:31:29 AM Interpretation: Performing Lab:MAURICIO [employer]-Micell Technologiese[address]55 JETME, Precision TherapeuticsNtfoVR[address] Sb Robins, Director - [address] [facility] HospitalElectronic Sound MagazineNov[facility] Notes/Report: FASTING: NO Amphetamine NEGATIVE <250 ng/mL Methamphetamine NEGATIVE <250 ng/mL Amphetamines Comments See LD T Notes Notes and Comments This drug testing is for medical treatment only. Analysis was performed as non-forensic testing and these results should be used only by healthcare providers to render diagnosis or treatment, or to monitor progress of medical conditions. Buprenorphine Notes: Buprenorphine, Norbuprenorphine detected is consistent with the use of the drug(s) Buprenorphine or Buprenorphine with Naloxone. Naloxone may be negative due to poor oral bioavailability and/or short half-life. LDT Notes: Confirmation tests were developed and their analytical performance characteristics have been determined by [employer]. It has not been cleared or approved by the FDA. This assay has been validated pursuant to the CLIA regulations and is used for clinical purposes. medMATCH(R) enables providers to identify if drug use is consistent or inconsistent with a corresponding prescribed medication(s) list. Healthcare Providers needing Interpretation assistance, please contact us at [phone] ( ) M-F, 8am to 10pm EST DRUG MONITOR,BARBITURATE, QN , URINE ([id number]) Reviewed date:02/20/2024 09:31:29 AM Interpretation: Performing Lab:MAURICIO [employer] Xjnf[address] TV189.comtel BlJoy Media Group, Precision TherapeuticsZceoYK[address] Sb Robins Notes/Report: FASTING: NO Amobarbital NEGATIVE <100 ng/mL Butalbital NEGATIVE <100 ng/mL Pentobarbital NEGATIVE <100 ng/mL Phenobarbital NEGATIVE <100 ng/mL Secobarbital NEGATIVE <100 ng/mL Barbiturates Comments See LD T Notes DRUG MONITOR, BENZO, QN, URI NE ([id number]) Reviewed date:02/20/2024 09:31:29 AM Interpretation: Performing Lab:MAURICIO, [employer] [facility] [address], Micell TechnologiesYxbnGK[address] Sb Robins Notes/Report: FASTING: NO Alphahydroxyalprazolam NEGATIVE <25 ng/mL Alphahydroxymidazolam NEGATIVE <50 ng/mL Alphahydroxytriazolam NEGATIVE <50 ng/mL Aminoclonazepam NEGATIVE <25 ng/mL Hydroxyethylflurazepam NEGATIVE <50 ng/mL Lorazepam NEGATIVE <50 ng/mL Nordiazepam NEGATIVE <50 ng/mL Oxazepam NEGATIVE <50 ng/mL Temazepam NEGATIVE <50 ng/mL Benzodiazepines Comments See LDT Notes DRUG MONITOR, METHADONE META B, QN, URINE ([id number]) Reviewed date:02/20/2024 09:31:29 AM Interpretation: Performing Lab:MAURICIO, [employer] [address], Micell TechnologiesHunaFD[address] Sb Robins Notes/Report: FASTING: NO EDDP NEGATIVE <100 ng/mL Methadone NEGATIVE <100 ng/mL Methadone Comments See LDT N otes DRUG MONITOR, OPIATES EXPAND ED, QN, URINE ([id number]) Reviewed date:02/20/2024 09:31:30 AM Interpretation: Performing Lab:MAURICIO, [employer] [address], Micell TechnologiesUtenSP[address] Sb Robins Notes/Report: FASTING: NO Codeine NEGATIVE <50 ng/mL Hydrocodone NEGATIVE <50 ng/mL Hydromorphone NEGATIVE <50 ng/mL Morphine NEGATIVE <50 ng/mL Norhydrocodone NEGATIVE <50 ng/mL Opiates Comments See LDT Not es Noroxycodone NEGATIVE <50 ng/mL Oxycodone NEGATIVE <50 ng/mL Oxymorphone NEGATIVE <50 ng/mL Oxycodone Comments See LDT N otes DRUG MONITOR, FENTANYL, QN, URINE (21919) Reviewed date:02/20/2024 09:31:30 AM Interpretation: Performing Lab:MAURICIO, [employer] [facility] [address], [place] DwhkNS[address] Sb Robins Notes/Report: FASTING: NO Fentanyl NEGATIVE <0.5 ng/mL Norfentanyl NEGATIVE <0.5 ng/mL Fentanyl Comments See LDT No makeda DRUG MONITOR, BUP AND NALOX ONE,QN,URINE ([id number]) Reviewed date:02/20/2024 09:31:30 AM Interpretation: Performing Lab:MAURICIO [employer]-Shivam [address] [facility], [facility] ClinicCnwiSB[address] Sb Robins Notes/Report: FASTING: NO Buprenorphine 167 <2 ng/mL medMATCH Buprenorphine CONSISTENT Norbuprenorphine 116 <2 ng/mL medMATCH Norbuprenorphine CONSISTENT Naloxone NEGATIVE <2 ng/mL Buprenorphine Comments See B uprenorphine Notes, LDT Notes PRESCRIBED DRUGS, medMATCH(R ) ([id number]) Reviewed date:02/20/2024 09:31:30 AM Interpretation: Performing Lab:Herminio [facility]-[address]hoqv[address], PytwxyJH[address] Gisell Paredes MD Notes/Report: FASTING: NO medMATCH Summary Prescribed Prescribed Not Prescribed Consistent Inconsistent Inconsistent Sublocade(TM) Prescribed Drug 1 Sublocade(TM) DRUG MONITOR,AMPHETAMINE, W/ DL, QN URINE ([id number]) Reviewed date:04/02/2024 04:21:33 PM Interpretation: Performing Lab:Herminio MARTÍNEZ [employer]-Shivam [address] [facility], [facility] ClinicGdobZP[address] Sb Robins Notes/Report: FASTING: NO Amphetamine NEGATIVE <250 ng/mL Methamphetamine NEGATIVE <250 ng/mL Amphetamines Comments See LD T Notes DRUG MONITOR, BENZO, QN, URI NE ([id number]) Reviewed date:04/02/2024 04:21:33 PM Interpretation: Performing Lab:Herminio MARTÍNEZ-Shivam [address], Lakeview HospitalXhvwVW[address] Sb Robins Notes/Report: FASTING: NO Alphahydroxyalprazolam NEGATIVE <25 ng/mL Alphahydroxymidazolam NEGATIVE <50 ng/mL Alphahydroxytriazolam NEGATIVE <50 ng/mL Aminoclonazepam NEGATIVE <25 ng/mL Hydroxyethylflurazepam NEGATIVE <50 ng/mL Lorazepam NEGATIVE <50 ng/mL Nordiazepam NEGATIVE <50 ng/mL Oxazepam NEGATIVE <50 ng/mL Temazepam NEGATIVE <50 ng/mL Benzodiazepines Comments See LDT Notes DRUG MONITOR, BUP AND NALOXO NE,QN,URINE ([id number]) Reviewed date:04/02/2024 04:21:33 PM Interpretation: Performing Lab:MAURICIO [employer]-Shivam [address], [place] IexzMO[address] Sb Robins Notes/Report: FASTING: NO Buprenorphine 221 <2 ng/mL medMATCH Buprenorphine CONSISTENT Norbuprenorphine 145 <2 ng/mL medMATCH Norbuprenorphine CONSISTENT Naloxone NEGATIVE <2 ng/mL Buprenorphine Comments See B uprenorphine Notes, LDT Notes DRUG MONITOR, COCAINE METAB, QN, URINE ([id number]) Reviewed date:04/02/2024 04:21:33 PM Interpretation: Performing Lab:MAURICIO [employer]-Shivam [address], [place] AwzdRM[address] Sb Robins Notes/Report: FASTING: NO Benzoylecgonine NEGATIVE <100 ng/mL Cocaine Comments See LDT Not es PRESCRIBED DRUGS, medMATCH(R ) ([id number]) Reviewed date:04/02/2024 04:21:33 PM Interpretation: Performing Lab:THERON [employer]-[address], UxvovrUK[address] Gisell Paredes MD Notes/Report: FASTING: NO medMATCH Summary Prescribed Prescribed Not Prescribed Consistent Inconsistent Inconsistent Buprenorphine Prescribed Drug 1 Buprenorphine DRUG MONITOR, FENTANYL, QN, URINE ([id number]) Reviewed date:04/02/2024 04:21:33 PM Interpretation: Performing Lab:MAURICIO, [employer]-[place] [address], Micell TechnologiesLgdoDG[address] Sb Robins Notes/Report: FASTING: NO Fentanyl NEGATIVE <0.5 ng/mL Norfentanyl NEGATIVE <0.5 ng/mL Fentanyl Comments See LDT No makeda DRUG MONITOR, OPIATES EXPAND ED, QN, URINE (04473) Reviewed date:04/02/2024 04:21:33 PM Interpretation: Performing Lab:CBHerminio [facility]-Shivam [address]fs[address] Shiv[address] ChoudharyeIL[address] Sb Poppy Robins, Director - [address] [facility] [address] [facility] HospitalProtagen[facility]rapeutics [facility] Notes/Report: FASTING: NO Codeine NEGATIVE <50 ng/mL Hydrocodone NEGATIVE <50 ng/mL Hydromorphone NEGATIVE <50 ng/mL Morphine NEGATIVE <50 ng/mL Norhydrocodone NEGATIVE <50 ng/mL Opiates Comments See LDT Not es Noroxycodone NEGATIVE <50 ng/mL Oxycodone NEGATIVE <50 ng/mL Oxymorphone NEGATIVE <50 ng/mL Oxycodone Comments See LDT N otes Notes and Comments This drug testing is for medical treatment only. Analysis was performed as non-forensic testing and these results should be used only by healthcare providers to render diagnosis or treatment, or to monitor progress of medical conditions. Buprenorphine Notes: Buprenorphine, Norbuprenorphine detected is consistent with the use of the drug(s) Buprenorphine or Buprenorphine with Naloxone. Naloxone may be negative due to poor oral bioavailability and/or short half-life. LDT Notes: Confirmation tests were developed and their analytical performance characteristics have been determined by [employer]. It has not been cleared or approved by the FDA. This assay has been validated pursuant to the CLIA regulations and is used for clinical purposes. medMATCH(R) enables providers to identify if drug use is consistent or inconsistent with a corresponding prescribed medication(s) list. Healthcare Providers needing Interpretation assistance, please contact us at [phone] ( ) M-F, 8am to 10pm EST DRUG MONITOR, NALTREXONE, QN , URIN ([id number]) Reviewed date:07/21/2024 02:11:21 PM Interpretation: Performing Lab:AT, [employer] [facility]-Ipnufsv2177 [facility] IslandA[address] [address] Zheng Beltre Notes/Report: FASTING: NO Naltrexone NEGATIVE <5 ng/mL 6 Beta Naltrexol NEGATIVE <5 ng/mL Naltrexone Comments See LDT Notes PRESCRIBED DRUGS, medMATCH(R ) ([id number]) Reviewed date:07/21/2024 02:11:21 PM Interpretation: Performing Lab:THERON [employer] [facility]-O[address]ivt[address], XxsoxxPF[address] Gisell Paredes MD Notes/Report: FASTING: NO medMATCH Summary Prescribed Prescribed Not Prescribed Consistent Inconsistent Inconsistent Sublocade(TM) Prescribed Drug 1 Sublocade(TM) DRUG MONITOR, COCAINE METAB, QN, URINE (73158) Reviewed date:07/21/2024 02:11:21 PM Interpretation: Performing Lab:MAURICIO [employer]-Shivam [address], [place] TkolBO[address] Sb Robins Notes/Report: FASTING: NO Benzoylecgonine NEGATIVE <100 ng/mL Cocaine Comments See LDT Not es DRUG MONITOR, HEROIN METAB, QN, URINE ([id number]) Reviewed date:07/21/2024 02:11:21 PM Interpretation: Performing Lab:MAURICIO [employer]-[place] [address], [place] HxlbXA[address] Sb Robins Notes/Report: FASTING: NO 6 Acetylmorphine NEGATIVE <10 ng/mL Heroin Metab Comments See LD T Notes DRUG MONITOR, BUP AND NALOXO NE,QN,URINE (70712) Reviewed date:07/21/2024 02:11:21 PM Interpretation: Performing Lab:MAURICIO [employer]-[place] [address], [place] NbqbQC[address] Sb Robins Notes/Report: FASTING: NO Buprenorphine 280 <2 ng/mL medMATCH Buprenorphine CONSISTENT Norbuprenorphine 490 <2 ng/mL medMATCH Norbuprenorphine CONSISTENT Naloxone NEGATIVE <2 ng/mL Buprenorphine Comments See B uprenorphine Notes, LDT Notes DRUG MONITOR, FENTANYL, QN, URINE (75159) Reviewed date:07/21/2024 02:11:21 PM Interpretation: Performing Lab:MAURICIO [employer]-[place] [address], [place] SyxqON[address] Sb Robins Notes/Report: FASTING: NO Fentanyl NEGATIVE <0.5 ng/mL Norfentanyl NEGATIVE <0.5 ng/mL Fentanyl Comments See LDT No makeda DRUG MONITOR, OPIATES EXPAND ED, QN, URINE (19416) Reviewed date:07/21/2024 02:11:21 PM Interpretation: Performing Lab:MAURICIO, [employer] [address], [place] PwgrEQ[address] Sb Robins Notes/Report: FASTING: NO Codeine NEGATIVE <50 ng/mL Hydrocodone NEGATIVE <50 ng/mL Hydromorphone NEGATIVE <50 ng/mL Morphine NEGATIVE <50 ng/mL Norhydrocodone NEGATIVE <50 ng/mL Opiates Comments See LDT Not es Noroxycodone NEGATIVE <50 ng/mL Oxycodone NEGATIVE <50 ng/mL Oxymorphone NEGATIVE <50 ng/mL Oxycodone Comments See LDT N otes DRUG MONITOR, METHADONE META B, QN, URINE (42327) Reviewed date:07/21/2024 02:11:21 PM Interpretation: Performing Lab:MAURICIO [employer] [address], Micell TechnologiesKmiwQP[address] Sb Robins Notes/Report: FASTING: NO EDDP NEGATIVE <100 ng/mL Methadone NEGATIVE <100 ng/mL Methadone Comments See LDT N otes DRUG MONITOR, MARIJUANA META B, QN, URINE ([id number]) Reviewed date:07/21/2024 02:11:21 PM Interpretation: Performing Lab:[facility] [employer] [address], Micell TechnologiesPkyuRG[address] [place] Notes/Report: FASTING: NO Marijuana Metabolite NEGATIVE <5 ng/mL Marijuana Comments See LDT N otes DRUG MONITOR, BENZO, QN, URI NE ([id number]) Reviewed date:07/21/2024 02:11:21 PM Interpretation: Performing Lab:[facility], [employer] [address], Micell TechnologiesEbgoYT[address] [place] Notes/Report: FASTING: NO Alphahydroxyalprazolam NEGATIVE <25 ng/mL Alphahydroxymidazolam NEGATIVE <50 ng/mL Alphahydroxytriazolam NEGATIVE <50 ng/mL Aminoclonazepam NEGATIVE <25 ng/mL Hydroxyethylflurazepam NEGATIVE <50 ng/mL Lorazepam NEGATIVE <50 ng/mL Nordiazepam NEGATIVE <50 ng/mL Oxazepam NEGATIVE <50 ng/mL Temazepam NEGATIVE <50 ng/mL Benzodiazepines Comments See LDT Notes DRUG MONITOR,AMPHETAMINE, W/ DL, QN URINE ([id number]) Reviewed date:07/21/2024 02:11:20 PM Interpretation: Performing Lab:[facility] [employer] [address] [facility], Shivam BelloZkuoTN[address] [place], Director - [id number] [facility] Hospital[facility] Notes/Report: FASTING: NO Amphetamine NEGATIVE <250 ng/mL Methamphetamine NEGATIVE <250 ng/mL Amphetamines Comments See LD T Notes Notes and Comments This drug testing is for medical treatment only. Analysis was performed as non-forensic testing and these results should be used only by healthcare providers to render diagnosis or treatment, or to monitor progress of medical conditions. Buprenorphine Notes: Buprenorphine, Norbuprenorphine detected is consistent with the use of the drug(s) Buprenorphine or Buprenorphine with Naloxone. Naloxone may be negative due to poor oral bioavailability and/or short half-life. LDT Notes: Confirmation tests were developed and their analytical performance characteristics have been determined by [employer]. It has not been cleared or approved by the FDA. This assay has been validated pursuant to the CLIA regulations and is used for clinical purposes. medMATCH(R) enables providers to identify if drug use is consistent or inconsistent with a corresponding prescribed medication(s) list. Healthcare Providers needing Interpretation assistance, please contact us at [phone] ( ) M-F, 8am to 10pm EST Methadone Reviewed date:09/17/2024 11:27:59 AM Interpretation: Performing Lab: Notes/Report: Methadone NEGATIVE 50.0 ng/mL Not Medicated Consistent Fentanyl Reviewed date:09/17/2024 11:27:59 AM Interpretation: Performing Lab: Notes/Report: Fentanyl NEGATIVE 2.0 ng/mL Not Medicated Consistent Buprenorphine Reviewed date:09/17/2024 11:27:59 AM Interpretation: Performing Lab: Notes/Report: Buprenorphine 258.6 10.0 ng/mL Medicated Cons istent Opiates Reviewed date:09/17/2024 11:27:59 AM Interpretation: Performing Lab: Notes/Report: Noroxycodone NEGATIVE 50.0 ng/mL Not Medicated Consistent Norhydrocodone NEGATIVE 50.0 ng/mL Not Medicated Consistent Oxycodone NEGATIVE 50.0 ng/mL Not Medicated Consistent Hydromorphone NEGATIVE 50.0 ng/mL Not Medicated Consistent Hydrocodone NEGATIVE 50.0 ng/mL Not Medicated Consistent Morphine NEGATIVE 50.0 ng/mL Not Medicated Consistent Oxymorphone NEGATIVE 50.0 ng/mL Not Medicated Consistent Codeine NEGATIVE 50.0 ng/mL Not Medicated Consistent Illicits Reviewed date:09/17/2024 11:27:59 AM Interpretation: Performing Lab: Notes/Report: THCCOOH NEGATIVE 15.0 ng/mL Not Medicated Consistent PCP NEGATIVE 20.0 ng/mL Not Medicated Consistent MDMA NEGATIVE 50.0 ng/mL Not Medicated Consistent MDEA NEGATIVE 50.0 ng/mL Not Medicated Consistent MDA NEGATIVE 50.0 ng/mL Not Medicated Consistent Cocaine Metabolite NEGATIVE 20.0 ng/mL Not Medic ated Consistent 6-KISHORE NEGATIVE 10.0 ng/mL Not Medicated Consistent Stimulants Reviewed date:09/17/2024 11:27:59 AM Interpretation: Performing Lab: Notes/Report: Phentermine NEGATIVE 100.0 ng/mL Not Medicated Consistent Methylphenidate NEGATIVE 50.0 ng/mL Not Medicate d Consistent Methamphetamine NEGATIVE 100.0 ng/mL Not Medicate d Consistent Amphetamine NEGATIVE 100.0 ng/mL Not Medicated Consistent Naltrexone Reviewed date:09/17/2024 11:27:59 AM Interpretation: Performing Lab: Notes/Report: Not Medicated Consistent Naltrexone NEGATIVE 50.0 ng/mL Benzodiazepines Reviewed date:09/17/2024 11:27:59 AM Interpretation: Performing Lab:[address] [place] [address], [address] [place] [address], Director - [id number] Notes/Report: An exception occurred while processing this report and so it has incomplete data. Please contact [employer] for assistance. Not Medicated Consistent Not Medicated Consistent Not Medicated Consistent Not Medicated Consistent Not Medicated Consistent Not Medicated Consistent Not Medicated Consistent Not Medicated Consistent Not Medicated Consistent Not Medicated Consistent 7-Aminoclonazepam NEGATIVE 20.0 ng/mL Temazepam NEGATIVE 40.0 ng/mL Oxazepam NEGATIVE 40.0 ng/mL Midazolam NEGATIVE 40.0 ng/mL Lorazepam NEGATIVE 40.0 ng/mL Nordiazepam NEGATIVE 40.0 ng/mL Diazepam NEGATIVE 40.0 ng/mL Clonazepam NEGATIVE 20.0 ng/mL Hydroxyalprazolam NEGATIVE 20.0 ng/mL Alprazolam NEGATIVE 20.0 ng/mL PDF Report [email or web address]_[email or web address]_ SRC_ORU Validity Testing Reviewed date:09/17/2024 11:27:59 AM Interpretation: Performing Lab: Notes/Report: Not Medicated Consistent Not Medicated Consistent Not Medicated Consistent Not Medicated Consistent Specific [place] 1.027 1.003 - 1.030 pH 5.2 3.0 - 10.9 Oxidants -13 200 g/mL Creatinine 160.6 20.0 - 300.0 mg/dL DRUG MONITOR, BUP AND NALOXO NE,QN,URINE ([id number]) Reviewed date:05/25/2024 04:18:29 PM Interpretation: Performing Lab:[facility] [employer] Technologiese[address], EdupathOdirQN[address] [place] Notes/Report: FASTING: NO Buprenorphine 237 <2 ng/mL Norbuprenorphine 553 <2 ng/mL Naloxone NEGATIVE <2 ng/mL Buprenorphine Comments See B uprenorphine Notes, LDT Notes DRUG MONITOR, FENTANYL, QN, URINE ([id number]) Reviewed date:05/25/2024 04:18:29 PM Interpretation: Performing Lab:[facility] [employer] Technologiese[address], EdupathMkrcXK[address] [place] Notes/Report: FASTING: NO Fentanyl NEGATIVE <0.5 ng/mL Norfentanyl NEGATIVE <0.5 ng/mL Fentanyl Comments See LDT No [employer]akeda DRUG MONITOR, OPIATES EXPAND ED, QN, URINE ([id number]) Reviewed date:05/25/2024 04:18:29 PM Interpretation: Performing Lab:[facility] [employer]e[address], EdupathZeutDZ[address] [place], Director - [address] [facility] Notes/Report: FASTING: NO Codeine NEGATIVE <50 ng/mL Hydrocodone NEGATIVE <50 ng/mL Hydromorphone NEGATIVE <50 ng/mL Morphine NEGATIVE <50 ng/mL Norhydrocodone NEGATIVE <50 ng/mL Opiates Comments See LDT Not es Noroxycodone NEGATIVE <50 ng/mL Oxycodone NEGATIVE <50 ng/mL Oxymorphone NEGATIVE <50 ng/mL Oxycodone Comments See LDT N otes Notes and Comments This drug testing is for medical treatment only. Analysis was performed as non-forensic testing and these results should be used only by healthcare providers to render diagnosis or treatment, or to monitor progress of medical conditions. Benzodiazepines Notes: Temazepam detected is consistent with the use of the drug Temazepam. Temazepam can be a prescribed drug and is also a metabolite of Diazepam. The metabolite Oxazepam is not present at or above the cutoff. Buprenorphine Notes: Buprenorphine, Norbuprenorphine detected is consistent with the use of the drug(s) Buprenorphine or Buprenorphine with Naloxone. Naloxone may be negative due to poor oral bioavailability and/or short half-life. LDT Notes: Confirmation tests were developed and their analytical performance characteristics have been determined by [employer]. It has not been cleared or approved by the FDA. This assay has been validated pursuant to the CLIA regulations and is used for clinical purposes. Healthcare Providers needing Interpretation assistance, please contact us at [phone] ( ) M-F, 8am to 10pm EST DRUG MONITOR, METHADONE META B, QN, URINE ([id number]) Reviewed date:05/25/2024 04:18:29 PM Interpretation: Performing Lab:[facility] [employer] [address]Joy [address], Micell TechnologiesHswhJM[address] [place] Notes/Report: FASTING: NO EDDP NEGATIVE <100 ng/mL Methadone NEGATIVE <100 ng/mL Methadone Comments See LDT N otes DRUG MONITOR, BENZO, QN, URI NE ([id number]) Reviewed date:05/25/2024 04:18:29 PM Interpretation: Performing Lab:[facility] [employer] [address], Micell TechnologiesBpnoGT[address] [place] Notes/Report: FASTING: NO Alphahydroxyalprazolam NEGATIVE <25 ng/mL Alphahydroxymidazolam NEGATIVE <50 ng/mL Alphahydroxytriazolam NEGATIVE <50 ng/mL Aminoclonazepam NEGATIVE <25 ng/mL Hydroxyethylflurazepam NEGATIVE <50 ng/mL Lorazepam NEGATIVE <50 ng/mL Nordiazepam NEGATIVE <50 ng/mL Oxazepam NEGATIVE <50 ng/mL Temazepam 51 <50 ng/mL Benzodiazepines Comments See Benzodiazepines Notes, LDT Notes DRUG MONITOR,AMPHETAMINE, QN , URINE ([id number]) Reviewed date:05/25/2024 04:18:29 PM Interpretation: Performing Lab:CB, [facility]Sh[facility]am [address], Shivam BelloDjmkKO[address] [place] Notes/Report: FASTING: NO Amphetamine NEGATIVE <250 ng/mL Methamphetamine NEGATIVE <250 ng/mL Amphetamines Comments See LD T Notes Reason For Referral No Information Medications Medication SIG (Take, Route, Frequency, Duration) Notes Start Date End Date Status Diclofenac Potassium 50 MG Oral for 30 Days Active Timolol Maleate 0.5 % Ophthalmic for 37 Days Active Azelastine HCl 0.05 % Ophthalmic for 30 Days Active Lisinopril 20 MG Oral for 56 Days Active Sublocade 100 MG/0.5ML 0.5 mL Subcutaneous once a month for 30 days injection is due on 14 of each month injection is due on 11 of each month 06/02/2024 11/29/2024 Active buPROPion HCl ER (SR) 200 MG TAKE 1 TABLET BY MOUTH TWICE A DAY for 90 Active Diclofenac Potassium 50 MG Oral for 30 Days Not-Taki ng Cephalexin 500 MG Oral for 7 Days Not-Taking Omeprazole 40 MG Oral for 90 Days Not-Taking Rosuvastatin Calcium 10 MG Oral for 90 Days Not-Taking Immunizations Vaccine Route Administration Date Status Comme nts Moderna Covid-19 Vaccine 1st dose Unknown 07/19/2020 Ad ministered Moderna Covid-19 Vaccine 1st dose Unknown 08/16/2020 Ad ministered Moderna Covid-19 Vaccine 1st dose Unknown 05/17/2021 Ad ministered Zoster Unknown 11/21/2017 Administered Social History Tobacco Use: Social History Observation Description Date Details (start date - stop date) Never Smoker NA - NA Sex Assigned At : Social History Observation Description Sex Assigned At Female Tobacco Control (Standard) Question Answer Notes Tobacco use: Nonsmoker Problems Problem Type SNOMED Code ICD Code Onset Dates Problem Status W/U Status Risk Notes Problem Opioid dependence (58503318) Opioid dependence, uncomplicated (F11.20) Active confirmed Problem Major depressive disorder, recurrent, moderate (F33.1) Active confirmed Problem Opioid dependence in remission (202411070) Opioid dependence in remission (F11.21) Active confirmed Vital Signs Heart Rate 80 /min 10/14/2024 Height-cm 162.56 cm 10/14/2024 Blood pressure diastolic 74 mm Hg 10/14/2024 Weight-kg 77.47 kg 10/14/2024 Height 64.00 in 10/14/2024 Blood pressure systolic 112 mm Hg 10/14/2024 Weight 170.8 lbs 10/14/2024 BMI 29.31 kg/m2 10/14/2024 Encounters Encounter Location Date Provider Diagnosis [facility] [employer] [facility] [address] [place] [address] 11/18/2023 Jluis Suman Opioid dependence in remission F11.21 [facility] [address] [place] [address] 12/18/2023 Jluis Suman Opioid dependence in remission F11.21 [facility] [address] [place] [address] 01/15/2024 Jluis Suman Opioid dependence, uncomplicated F11.20 ; [facility] (current) use of opiate analgesic Z79.891 ; Major depressive disorder, recurrent, moderate F33.1 and Opioid dependence in remission F11.21 [facility] [employer] [facility] [address] [place] [address] 02/11/2024 Jluis Suman Opioid dependence, uncomplicated F11.20 [facility] [address] [place] [address] 03/19/2024 Jluis Suman Opioid dependence in remission F11.21 [facility] [address] [place] [address] 05/05/2024 Jluis Suman Opioid dependence in remission F11.21 [facility] [address] [place] [address] 06/02/2024 Jluis Suman Opioid dependence in remission F11.21 and Major depressive disorder, recurrent, moderate F33.1 [facility] [address] [place] [address] 06/17/2024 Jluis Suman [facility] [address] [place] [address] 07/15/2024 Jluis Suman Opioid dependence in remission F11.21 [facility], [facility] [address] [place] [address] 08/12/2024 Jluis Suman Encounter for screen ing for cardiovascular disorders Z13.6 ; Dietary counseling and surveillance Z71.3 and Opioid dependence in remission F11.21 [facility], [facility] [address] [place] [address] 09/15/2024 Jluis Suman Encounter for screen ing for cardiovascular disorders Z13.6 and Opioid dependence in remission F11.21 [facility], [facility] [address] [place] [address] 10/14/2024 Jluistremaine Will On intermediate drug therapy V58.69 ; Encounter for screening for cardiovascular disorders Z13.6 and Opioid dependence in remission F11.21 [facility], [facility] [address] [place] [address] 11/14/2023 Sena Brown [facility], [facility] [address] [place] [address] 02/20/2024 Jluis Glaindoam [facility], [facility] [address] [place] [address] 04/20/2024 Jluis Suman [facility], [facility] [address] [place] [address] 04/23/2024 Jluis Suman [facility], [facility] [address] [place] [address] 05/27/2024 Jluis Suman [facility], [facility] [address] [place] [address] 06/03/2024 Jluis Suman [facility], [facility] [address] [place] [address] 06/16/2024 Jluis Suman [facility], [facility] [address] [place] [address] 08/25/2024 Jluis Suman [facility], [facility] [address] [place] [address] 08/26/2024 Jluis Suman Assessments Encounter Date Diagnosis (ICD Code) Assessment Notes Treatment Notes Treatment Clinical Notes Section Notes 02/11/2024 Opioid dependence, uncomplicated (ICD-10 - F11.20) 03/19/2024 Opioid dependence in remission (ICD-10 - F11.21) 05/05/2024 Opioid dependence in remission (ICD-10 - F11.21) 06/02/2024 Major depressive disorder, recurrent, moderate (ICD-10 - F33.1) Status post cholecystectomy - Assessment: Patient underwent emergency gallbladder removal surgery on April 19 and was discharged on April 22. She has completed her course of Vicodin for pain management. - Plan: - Continue monitoring for any postoperative complications or pain. - Encourage the patient to report any new or worsening symptoms. Lupus and rheumatoid arthritis - Assessment: Patient was diagnosed with lupus and rheumatoid arthritis after blood work at the arthritis center in [place]. She was prescribed hydroxychloroquine and prednisone but discontinued due to hair loss. Patient reports using only 60% of her kidneys. - Plan: - Follow-up appointment scheduled for June 17 to discuss alternative medications. - Consider discussing small doses of chemotherapy as a treatment option. - Address patient's concerns about hair loss and explore alternative treatment options. Sublimaze injections - Assessment: Patient missed scheduled injection on April 19 due to hospitalization. Rescheduled for May 05, but insurance is not covering the treatment. Plans to start a new schedule on June 16 and continue monthly. - Plan: - Assist patient in navigating insurance coverage issues. - Ensure patient receives necessary Sublimaze injections as prescribed. - Consider adjusting injection schedule to align with insurance coverage requirements. Recurrent bladder prolapse - Assessment: Patient has history of bladder surgery with initial success, but experienced recurrent prolapse. Underwent another surgery by Dr. Jara, but bladder prolapsed again two weeks later. Patient is considering another surgery but is hesitant due to usp plans and concerns about weak immune system affecting healing. - Plan: - Discuss risks and benefits of another bladder surgery with the patient. - Consider overall health, immune system, and quality of life in decision-making. - Explore alternative treatment options if necessary. - Address patient's concerns about usp and insurance coverage. 06/02/2024 Opioid dependence in remission (ICD-10 - F11.21) Status post cholecystectomy - Assessment: Patient underwent emergency gallbladder removal surgery on April 19 and was discharged on April 22. She has completed her course of Vicodin for pain management. - Plan: - Continue monitoring for any postoperative complications or pain. - Encourage the patient to report any new or worsening symptoms. Lupus and rheumatoid arthritis - Assessment: Patient was diagnosed with lupus and rheumatoid arthritis after blood work at the arthritis center in [place]. She was prescribed hydroxychloroquine and prednisone but discontinued due to hair loss. Patient reports using only 60% of her kidneys. - Plan: - Follow-up appointment scheduled for June 17 to discuss alternative medications. - Consider discussing small doses of chemotherapy as a treatment option. - Address patient's concerns about hair loss and explore alternative treatment options. Sublimaze injections - Assessment: Patient missed scheduled injection on April 19 due to hospitalization. Rescheduled for May 05, but insurance is not covering the treatment. Plans to start a new schedule on June 16 and continue monthly. - Plan: - Assist patient in navigating insurance coverage issues. - Ensure patient receives necessary Sublimaze injections as prescribed. - Consider adjusting injection schedule to align with insurance coverage requirements. Recurrent bladder prolapse - Assessment: Patient has history of bladder surgery with initial success, but experienced recurrent prolapse. Underwent another surgery by Dr. Jara, but bladder prolapsed again two weeks later. Patient is considering another surgery but is hesitant due to usp plans and concerns about weak immune system affecting healing. - Plan: - Discuss risks and benefits of another bladder surgery with the patient. - Consider overall health, immune system, and quality of life in decision-making. - Explore alternative treatment options if necessary. - Address patient's concerns about usp and insurance coverage. 06/17/2024 Opioid dependence in remission (ICD-10 - F11.21) 07/15/2024 Opioid dependence in remission (ICD-10 - F11.21) Verified the injection dose and diagnosis 08/12/2024 Encounter for screening for cardiovascular disorders (ICD-10 - Z13.6) Verified the injection dose and diagnosis 09/15/2024 Encounter for screening for cardiovascular disorders (ICD-10 - Z13.6) Verified the injection dose and diagnosis 09/15/2024 Opioid dependence in remission (ICD-10 - F11.21) Verified the injection dose and diagnosis 10/14/2024 On intermediate drug therapy (ICD9-CM - V58.69) Verified the injection dose and diagnosis 11/18/2023 Opioid dependence in remission (ICD-10 - F11.21) 12/18/2023 Opioid dependence in remission (ICD-10 - F11.21) 01/15/2024 Opioid dependence, uncomplicated (ICD-10 - F11.20) Bladder Surgery - Assessment: Patient had surgery on August 27 for their bladder and is scheduled for another surgery on February 17 to repair the falling back part of the bladder. - Plan: No further action needed at this time. Sleep Apnea - Assessment: Patient underwent a sleep study on February 21 at a sleep center in [place], which came back normal. - Plan: No further action needed at this time. Sublocade Treatment - Assessment: Patient reports everything is fine with Sublocade but may need more refills. Encountering issues with [facility]. Patient received their injection today. - Plan: Advised patient to consider [facility] and inquire about Medicare coverage for Sublocade. No changes to the current treatment plan. Bupropion Prescription - Assessment: Patient is taking bupropion twice a day and needs a refill. They have switched from [facility] in [place] to [facility] in [place] due to moving to [place]. - Plan: Will send the prescription to the new pharmacy and schedule a follow-up appointment in three months. Depression - Assessment: Patient reports stable depression but experiences depressive episodes due to concerns about their son's substance abuse and potential for overdose. Son is entering another 28-day program for meth and alcohol use. Patient reports being happy with their job and living situation. - Plan: Encouraged patient to continue focusing on their own well-being and allow their son to take responsibility for his actions. No changes to the current treatment plan. 01/15/2024 [facility]FP (current) use of opiate analgesic (ICD-10 - Z79.891) Bladder Surgery - Assessment: Patient had surgery on August 27 for their bladder and is scheduled for another surgery on February 17 to repair the falling back part of the bladder. - Plan: No further action needed at this time. Sleep Apnea - Assessment: Patient underwent a sleep study on February 21 at a sleep center in [place], which came back normal. - Plan: No further action needed at this time. Sublocade Treatment - Assessment: Patient reports everything is fine with Sublocade but may need more refills. Encountering issues with [facility]. Patient received their injection today. - Plan: Advised patient to consider [facility] and inquire about Medicare coverage for Sublocade. No changes to the current treatment plan. Bupropion Prescription - Assessment: Patient is taking bupropion twice a day and needs a refill. They have switched from [facility] in [place] to [facility] in [place] due to moving to [place]. - Plan: Will send the prescription to the new pharmacy and schedule a follow-up appointment in three months. Depression - Assessment: Patient reports stable depression but experiences depressive episodes due to concerns about their son's substance abuse and potential for overdose. Son is entering another 28-day program for meth and alcohol use. Patient reports being happy with their job and living situation. - Plan: Encouraged patient to continue focusing on their own well-being and allow their son to take responsibility for his actions. No changes to the current treatment plan. 10/14/2024 Encounter for screening for cardiovascular disorders (ICD-10 - Z13.6) Verified the injection dose and diagnosis 08/12/2024 Dietary counseling and surveillance (ICD-10 - Z71.3) Verified the injection dose and diagnosis 08/12/2024 Opioid dependence in remission (ICD-10 - F11.21) Verified the injection dose and diagnosis 10/14/2024 Opioid dependence in remission (ICD-10 - F11.21) Verified the injection dose and diagnosis 01/15/2024 Major depressive disorder, recurrent, moderate (ICD-10 - F33.1) Bladder Surgery - Assessment: Patient had surgery on August 27 for their bladder and is scheduled for another surgery on February 17 to repair the falling back part of the bladder. - Plan: No further action needed at this time. Sleep Apnea - Assessment: Patient underwent a sleep study on February 21 at a sleep center in [place], which came back normal. - Plan: No further action needed at this time. Sublocade Treatment - Assessment: Patient reports everything is fine with Sublocade but may need more refills. Encountering issues with [facility]. Patient received their injection today. - Plan: Advised patient to consider [facility] and inquire about Medicare coverage for Sublocade. No changes to the current treatment plan. Bupropion Prescription - Assessment: Patient is taking bupropion twice a day and needs a refill. They [facility] [place] to [facility] in [place] due to moving to [place]. - Plan: Will send the prescription to the new pharmacy and schedule a follow-up appointment in three months. Depression - Assessment: Patient reports stable depression but experiences depressive episodes due to concerns about their son's substance abuse and potential for overdose. Son is entering another 28-day program for meth and alcohol use. Patient reports being happy with their job and living situation. - Plan: Encouraged patient to continue focusing on their own well-being and allow their son to take responsibility for his actions. No changes to the current treatment plan. 01/15/2024 Opioid dependence in remission (ICD-10 - F11.21) Bladder Surgery - Assessment: Patient had surgery on August 27 for their bladder and is scheduled for another surgery on February 17 to repair the falling back part of the bladder. - Plan: No further action needed at this time. Sleep Apnea - Assessment: Patient underwent a sleep study on February 21 at a sleep center in [place], which came back normal. - Plan: No further action needed at this time. Sublocade Treatment - Assessment: Patient reports everything is fine with Sublocade but may need more refills. Encountering issues with [facility]. Patient received their injection today. - Plan: Advised patient to consider [facility] and inquire about Medicare coverage for Sublocade. No changes to the current treatment plan. Bupropion Prescription - Assessment: Patient is taking bupropion twice a day and needs a refill. [facility] [place] [facility] [place] due to moving to [place]. - Plan: Will send the prescription to the new pharmacy and schedule a follow-up appointment in three months. Depression - Assessment: Patient reports stable depression but experiences depressive episodes due to concerns about their son's substance abuse and potential for overdose. Son is entering another 28-day program for meth and alcohol use. Patient reports being happy with their job and living situation. - Plan: Encouraged patient to continue focusing on their own well-being and allow their son to take responsibility for his actions. No changes to the current treatment plan. Plan Of Treatment Next Appt Details Provider Name:Jluis Will , 11/01/2024 10:00:00 AM, [address], [facility] [address], [place], [address], Provider Name:Jluis Will , 11/17/2024 01:30:00 PM, [address], [place], [address], Insurance Providers Payer Name Payer Address Payer Phone Subscriber Number Group Number Insured Name Patient Relationship to Insured Coverage Start Date Coverage End Date [employer] [employer] [address] [place] [address] [id number] NICOLLE FUNEZ Self - patient is the insured Medicare-I l Medicare [address] [place] [phone] [id number] NICOLLE FUNEZ Self - patient is the insured Medications Administered Medication Instructions Date of Administration Dosage Notes Sublocade 11/18/2023 100 mg Sublocade 12/18/2023 100 mg Sublocade 01/15/2024 100 mg RLQ administer ed Sublocade 02/11/2024 100 mg Lot # [id number] Exp - 03/2025 Sublocade 03/19/2024 100 mg Sublocade 05/05/2024 100 mg Lot # : [id number] Sublocade 06/17/2024 100 mg Lot # [id number] S Sublocade 07/15/2024 100 mg Lot # [id number] S Sublocade 08/12/2024 100 mg Given in patie nts lower left abdomen w/ no problems. Patient tolerated procedure well. Sublocade 09/15/2024 100 mg Lot # [id number] Given in patients Right Upper Quad of Abdomen w/ out problems. Patient tolerated procedure well. Sublocade 10/14/2024 100 mg Lot # [id number] S Medical (General) History Medical History History ICD Code Problems: Adult attention deficit hypera ctivity disorder Body mass index 30+ - obesity Depressive disorder Generalized anxiety disorder Injection site infection Long-term drug therapy Opioid dependence Red left eye Severe recurrent major depression withou t psychotic features , Surgical History Surgery Date(Month/Year) Hysterectomy (48899) 09/12/2022 Other 09/12/2022 Any surgical history 11/18/1999
--- OUTSIDE RECORDS SUMMARY | 2024-10-20 10:27 | XMS_ITS | Data Portability ---
Author Organization [facility] Address [address] [place] [address] [address] [place] [address] Care Team Providers Care Wheel Alignment Mechanic Name Role Phone ISABEL COURTNEYNA Primary Care Provider Assessment Encounter Date Assessment Date Assessment LastModified by Organization Details LastModified Time 07/11/2021 07/11/2021 Annual gynecological exam performed. Patient will come back in a year unless there are new symptoms. Not available 07/11/2021 12:42:21 Plan of Treatment Reminders Order Date Submit Date Provider Last Modified By Organization Details Last Modified Time Details Appointments None recorded. Lab urinalysis, dipstick 2020 [facility] [place], [address], [address], [place], [address], 15:12:52 unlisted lab - CBC (H/H, RBC, indices, WBC, plt) (refl) 2020 [facility], [address], [place], [address], 11:06:33 CMP, serum or plasma 2020 021 [facility], [address], [place], [address], 11:06:32 testosteron e, free + total, serum 2020 [facility], [address], [place], [address], 11:06:33 Referral None recorded. Procedures None recorded. Surgeries None recorded. Imaging None recorded. Medication Orders permethrin 5 % topical cream 2023 024 [facility], [address] [facility], [place], [address], 4 12:11:30 progesteron e micronized 200 mg capsule 2021 022 [facility] [address] [place], [address], 4 11:15:28 Macrobid 100 mg capsule 2020 021 [facility] [address], [address], 2 17:27:22 Diflucan 150 mg tablet 2020 021 [facility] [address], [place], [address], 2 17:27:15 nystatin-tr iamcinolone 100,000 unit/gram-0 .1 % topical ointment 2020 021 [facility] [id number] In [facility] [address] [place] [address], [place], [address], 2 12:44:22 Patient TargetsNo targets recorded. Patient InstructionsNo instructions recorded. Reason for Referral None Reported. Results Created Date Observation Date Name Description Value Unit Range Abnormal Flag Note LastModifiedBy Organization Detail LastModifiedTime 03/05/2003/05/2021 CULTU RE: URINE result report SEE RESULT S BELOW Test: Cultu re: Urine Speci men Sourc e: Urine Voide d Speci men Type: Urine Speci men Date: 03/05 3:21 PM Resul t Date: 03/07 1:16 AM Resul t Statu s: Final resul t Abnor mal: No Resul ting Lab: [facility] [address] [facility] [address] Tel: CULTU RE ----- ----- ----- --- Cultu re resul t (>=3 organ isms prese nt) indic ates possi ble conta minat ion. Repea t cultu re if sympt oms indic ate. Not Available [facility] (Lab) [address], [place], [address], 03/07/2021 02:19:53 03/05/2003/05/2021 urina lysis , dipst ick Leukocytes TRACE Not Available [facility] [address], [place], [address], 03/05/2021 14:40:39 03/05/2003/05/2021 urina lysis , dipst ick Nitrite neg Not Available [place] [address], [place], [address], 03/05/2021 14:40:39 03/05/2003/05/2021 urina lysis , dipst ick Urobilinogen neg Not Available [facility] [address], [place], [address], 03/05/2021 14:40:39 03/05/2003/05/2021 urina lysis , dipst ick Protein TRACE Not Available [place] [address], [place], [address], 03/05/2021 14:40:39 03/05/2003/05/2021 urina lysis , dipst ick pH 7 Not Available [place] [address], [place], [address], 03/05/2021 14:40:39 03/05/20 21 03/05/2021 urina lysis , dipst ick Specific [place] 1.000 Not Available [facility] [address], [place], [address], 03/05/2021 14:40:39 03/05/20 21 03/05/2021 urina lysis , dipst ick Ketone neg Not Available [place] [address], [place], [address], 03/05/2021 14:40:39 03/05/20 21 03/05/2021 urina lysis , dipst ick Bilirubin neg Not Available [facility] [address], [place], [address], 03/05/2021 14:40:39 03/05/20 21 03/05/2021 urina lysis , dipst ick Glucose neg Not Available [place] [address], [place], [address], 03/05/2021 14:40:39 03/05/20 21 03/05/2021 urina lysis , dipst ick Appearance clear Not Available [place] [facility] [address], [place], [address], 03/05/2021 14:40:39 03/05/20 21 03/05/2021 urina lysis , dipst ick Color straw Not Available [place] [address], [place], [address], 03/05/2021 14:40:39 07/11/19 22 07/11/2021 IMAGE GUIDE D PAP AND HPV REGAR DLESS image guided Pap, HPV regardless of Pap result CANCEL LED Speci men Misla beled Not Available [facility] (Lab) [address], [place], [address], 07/12/2021 11:36:47 04/05/20 24 04/05/2024 CT/GC AND TRICH OMONA S VAGIN SEAN (RRNA ), SWAB chlamydia trachomatis, PCR Negati ve negati ve Not Available [facility] (Lab) [address] [facility], [place], [address], 04/06/2024 13:55:58 04/05/20 24 04/05/2024 CT/GC AND TRICH OMONA S VAGIN SEAN (RRNA ), SWAB neisseria gonorrhoeae, PCR Negati ve negati ve Not Available [facility] (Lab) [address] [facility], [place], [address], 04/06/2024 13:55:58 04/05/20 24 04/05/2024 CT/GC AND TRICH OMONA S VAGIN SAEN (RRNA ), SWAB trichomonas vaginalis ribosomal RNA (rrna) Negati ve negati ve Not Available [facility] (Lab) [address] [place], [address], 04/06/2024 13:55:58 Result Notes None recorded. Problems Name Problem SNOMED Code Status Onset Date Resolution Date Notes Provider Name and Address Organization Details Recorded Time Speciali kj medical examinat ion Completed 201203/05/2021 Gynecolog ical Examinati on;Record ed Elsewhere : No Locati on: [facility] So urce: EHR Chron ic: N Practic e ID: [id number] Bill able Time: 04:00:00 PM [facility] 14:32:48 Screenin g for malignan t neoplasm of cervix Completed 201203/05/2021 Screening for malignant neoplasms of the cervix;Re corded Elsewhere : No Locati on: [facility] So urce: EHR Chron ic: Y Practic e ID: [id number] Bill able Time: 04:00:00 PM [facility] 14:32:45 Increase d frequenc y of urinatio n [id number] Completed 201803/05/2021 Frequency of micturiti on;Record ed Elsewhere : No Locati on: [facility] So urce: EHR Chron ic: N Practic e ID: 0001 Bill able Time: 11:30:00 AM Rosie Lee [facility] 14:32:43 Acute vaginiti s [id number] Completed 201803/05/2021 Vaginitis ;Recorded Elsewhere : No Locati on: [facility] So urce: EHR Chron ic: N Practic e ID: [id number] Bill able Time: 11:30:00 AM Rosie [facility] 14:32:40 Adult health examinat ion Completed 201203/05/2021 Routine Medical Exam;Macario rded Elsewhere : No Locati on: [facility] So urce: EHR Chron ic: N Practic e ID: [id number] Bill able Time: 04:00:00 PM Rosie Lee [facility] 14:32:42 Screenin g for malignan t neoplasm of colon Completed 201003/05/2021 Special screening for malignant neoplasms , colon;Pra ctice ID: [id number] Rosie Lee [facility] 14:32:46 Problem Notes None recorded. Procedures Surgical History Date Name Laterality Status Provider Name and Address Organization Details Recorded Time 2 Date of Last Pap Smear completed [facility] 04/03/2024 11:18:41 1 Date of Last Mammogram completed [facility] 07/11/2021 12:45:20 1 Most Recent Bone Density completed [facility] 07/11/2021 12:45:38 0 completed [facility] 03/29/2020 10:16:32 9 procedure on neck completed [facility] 03/29/2020 10:15:47 excision of benign tumor of breast completed [facility] 03/29/2020 10:15:30 Imaging Results None recorded. Procedure Notes None recorded. Medical Equipment None Reported. Allergies Allergen ID Allergen Name Allergen Category Reaction Reaction Severity Criticality Documentation Date Start Date Code Code System Note Provider Name and Address Organization Details Recorded Time 2593 levofloxa hi medicatio n Not available Not available Not available 03/29/2020 41788 [facility] 10:12:23 2594 prochlorp erazine medicatio n Not available Not available Not available 03/29/2020 8704 [facility] 10:12:36 Medications Name Sig Start Date Stop Date Status Note LastModified by Organization Details LastModified Time e2/te 2.5/1.5 #[id number] grams APPLY 1/2 ML (1 PUMP) TOPICALL Y TWICE DAILY. (WINDOW PUMP) active Not Available Not Available No t Available amoxicill in 500 mg capsule TAKE 1 CAPSULE BY MOUTH TWICE A DAY FOR 10 DAYS 04/03 completed Not Available Not Available Not Available azelastin e 0.05 % eye drops INSTILL 1 DROP INTO BOTH EYES TWICE A DAY active Not Available Not Available No t Available nystatin 100,000 unit/mL oral suspensio n active Not Available Not Available Not Available prednison e 10 mg tablet TAKE 1 TABLET BY MOUTH EVERY DAY 03/29 completed Not Available Not Available Not Available doxycycli ne hyclate 100 mg capsule TAKE 1 CAPSULE BY MOUTH TWICE A DAY FOR 10 DAYS 04/03 completed Not Available Not Available Not Available clindamyc in HCl 300 mg capsule 07/10 completed Not Available Not Available Not Available ibuprofen 800 mg tablet 03/29 completed Not Available Not Available Not Available fluconazo le 150 mg tablet TAKE 1 TABLET BY MOUTH ONCE active Not Available Not Available No t Available benzonata te 200 mg capsule 03/29 completed Not Available Not Available Not Available ampicilli n 500 mg capsule TAKE 1 CAPSULE BY MOUTH 3 TIMES A DAY FOR 7 DAYS 04/03 completed Not Available Not Available Not Available valacyclo vir 1 gram tablet TAKE 1 TABLET BY MOUTH EVERY 12 HOURS FOR 10 DAYS active Not Available Not Available No t Available hydrocodo ne 5 mg-acetam inophen 325 mg tablet active Not Available Not Available Not Available urea 40 % topical cream active Not Available Not Available Not Available meloxicam 15 mg tablet TAKE ONE TABLET BY MOUTH ONCE DAILY NEEDED FOR SEVERE PAIN ONLY 07/11 completed Not Available Not Available Not Available lisinopri l 20 mg tablet TAKE 1 TABLET BY MOUTH EVERY DAY active Not Available Not Available No t Available prednison e 20 mg tablet PLEASE SEE ATTACHED FOR DETAILED DIRECTIO NS 04/03 completed Not Available Not Available Not Available prednison e 5 mg tablet TAKE 1-3 TABLETS BY ORAL ROUTE ONCE A DAY active Not Available Not Available No t Available clobetaso l 0.05 % topical cream APPLY TO FEET TWICE DAILY FOR 3 WEEKS 04/03 completed Not Available Not Available Not Available permethri n 5 % topical cream APPLY (THOROUG HLY MASSAGE INTO SKIN FROM HEAD TO SOLES OF FEET) BY TOPICAL ROUTE ONCE LEAVE ON FOR 8-14 HR, THEN REMOVE BY THOROUGH WASHING 2023 active Not Available Not Available Not Avai lable clindamyc in HCl 150 mg capsule TAKE 3 CAPSULES BY MOUTH 3 TIMES A DAY 04/03 completed Not Available Not Available Not Available penicilli n V potassium 500 mg tablet active Not Available Not Available Not Available omeprazol e 40 mg capsule,d elayed release TAKE 1 CAPSULE (40 MG TOTAL) BY MOUTH DAILY. active Not Available Not Available No t Available acetamino phen 500 mg tablet TAKE 1 TABLET BY MOUTH EVERY 4 TO 6 HOURS FOR 5 DAYS NEEDED FOR PAIN 04/03 completed Not Available Not Available Not Available ketorolac 0.5 % eye drops INSTILL 1 DROP INTO BOTH EYES TWICE A DAY 04/03 completed Not Available Not Available Not Available nystatin- triamcino lone 100,000 unit/gram -0.1 % topical ointment APPLY TO THE AFFECTED AREA(S) BY TOPICAL ROUTE 2 TIMES PER DAY FOR 14 DAYS 07/11 completed Not Available Not Available Not Available meloxicam 7.5 mg tablet 03/29 completed Not Available Not Available Not Available terbinafi ne HCl 250 mg tablet TAKE 1 TABLET BY MOUTH EVERY DAY 04/03 completed Not Available Not Available Not Available amoxicill in 875 mg tablet 03/29 completed Not Available Not Available Not Available prednisol one acetate 1 % eye drops,derik pension INSTILL 1 DROP INTO LEFT EYE 4 TIMES DAILY FOR 1 WEEK, THEN 2 TIMES DAILY FOR 1 WEEK 03/29 completed Not Available Not Available Not Available methotrex ate sodium 2.5 mg tablet TAKE 5 TABLETS BY MOUTH ONE DAY WEEKLY active Not Available Not Available No t Available trazodone 100 mg tablet 07/11 completed Not Available Not Available Not Available Flagyl 500 mg tablet take 1 tablet by oral route every 12 hours 03/05 completed Prescrib greg Cox e: No Locat ion: [facility] By: lidia duval DateTime : 12/03/19 11:30:00 AM Not Available Not Available Not Available diazepam 2 mg tablet active Not Available Not Available Not Available cephalexi n 500 mg capsule TAKE 1 CAPSULE BY MOUTH TWICE A DAY FOR 7 DAYS 04/03 completed Not Available Not Available Not Available diclofena c 0.1 % eye drops 03/29 completed Not Available Not Available Not Available clotrimaz ole-betam ethasone 1 %-0.05 % topical cream APPLY TO AFFECTED AREA(S) TWICE A DAY FOR 3 WEEKS 04/03 completed Not Available Not Available Not Available lisinopri l 10 mg tablet TAKE 1 TABLET BY MOUTH EVERY DAY 03/29 completed Not Available Not Available Not Available progester one micronize d 200 mg capsule TAKE 1 CAPSULE BY MOUTH EVERY DAY 04/03 completed Not Available Not Available Not Available diclofena c potassium 50 mg tablet TAKE 1 TABLET BY MOUTH DAILY NEEDED FOR PAIN(SPA RINGLY FOR ACUTE PAIN DUE TO HER RENAL FUNCTION .) active Not Available Not Available No t Available docusate sodium 100 mg capsule TAKE 1 CAPSULE BY MOUTH TWICE A DAY active Not Available Not Available No t Available folic acid 1 mg tablet TAKE 1 TABLET BY MOUTH EVERY DAY active Not Available Not Available No t Available gabapenti n 100 mg capsule TAKE 1 CAPSULE BY MOUTH THREE TIMES A DAY 07/11 completed Not Available Not Available Not Available hydroxych loroquine 200 mg tablet TAKE 1 TABLET BY MOUTH TWICE A DAY active Not Available Not Available No t Available polyethyl mika glycol 3350 17 gram/dose oral powder active Not Available Not Available Not Available methylpre dnisolone 4 mg tablets in a dose pack 03/05 completed Not Available Not Available Not Available albuterol sulfate HFA 90 mcg/actua tion aerosol inhaler TAKE 2 PUFFS BY INHALATI ON EVERY 6 HOURS NEEDED FOR WHEEZING OR COUGH. active Not Available Not Available No t Available timolol maleate 0.5 % eye drops APPLY ONE DROP IN EACH EYE TWICE A DAY active Not Available Not Available No t Available ondansetr on 4 mg disintegr ating tablet PLACE 1 TAB ON TOP OF TONGUE TO DISSOLVE , THEN SWALLOW, 3 TIMES PER DAY NEEDED active Not Available Not Available No t Available doxycycli ne hyclate 100 mg tablet 03/29 completed Not Available Not Available Not Available amoxicill in 875 mg-potass ium clavulana te 125 mg tablet 03/29 completed Not Available Not Available Not Available tobramyci n 0.3 %-dexamet hasone 0.1 % eye drops,derik pension USE 1 DROP IN BOTH EYES 4 TIMES A DAY FOR 4 DAYS, TWICE A DAY FOR 4 DAYS AND ONCE A DAY FOR 4 DAYS active Not Available Not Available No t Available bupropion HCl SR 200 mg tablet,12 hr sustained -release TAKE 1 TABLET BY MOUTH EVERY MORNING AND EVERY DAY AT NOON 04/03 completed Not Available Not Available Not Available rosuvasta tin 10 mg tablet TAKE 1 TABLET BY MOUTH EVERY DAY 04/03 completed Not Available Not Available Not Available nitrofura ntoin monohydra te/macroc rystals 100 mg capsule take 1 capsule by oral route every 12 hours with food 07/10 completed Not Available Not Available Not Available duloxetin e 30 mg capsule,d elayed release TAKE 1 CAPSULE BY MOUTH EVERYDAY AT BEDTIME 07/11 completed Not Available Not Available Not Available tizanidin e 2 mg capsule TAKE 1 OR 2 CAPSULES BY MOUTH AT NIGHT FOR SLEEP active Not Available Not Available No t Available buprenorp jyotsna 12 mg-naloxo ne 3 mg sublingua l film PLACE 1 FILM SUBLINGU ALLY EVERY DAY FOR 30 DAYS 04/03 completed Not Available Not Available Not Available Sublocade 300 mg/1.5 mL solution, extended release subcutane ous syringe 03/29 completed Not Available Not Available Not Available Sublocade 100 mg/0.5 mL solution, extended release subcutane ous syringe active Not Available Not Available Not Available Flucelvax Quad 60 mcg (15 mcg x 4)/0.5 mL intramusc ular susp 03/29 completed Not Available Not Available Not Available HRT Cream Base 2019 active Not Available Not Available Not Avai lable Fluzone Quad (PF) 60 mcg (15 mcg x 4)/0.5 mL IM syringe PHARMACY ADMINIST ERED 07/10 completed Not Available Not Available Not Available Vitals Date Recorded Body height Body mass index (BMI) Body weight Systolic blood pressure Diastolic blood pressure Provider Name and Address Organization Details Last Updated DateTime 06/21/2020 157.48 cm 32.9 kg/m2 67332.63 g 131 mm[Hg] 78 mm[Hg] [facility] 1 12:43:58 Date Recorded Body height Body mass index (BMI) Body weight Systolic blood pressure Diastolic blood pressure Provider Name and Address Organization Details Last Updated DateTime 07/11/2021 152.4 cm 33.4 kg/m2 50001.3 g 126 mm[Hg] 70 mm[Hg] [facility] 2 12:43:43 Date Recorded Body height Body mass index (BMI) Body weight Systolic blood pressure Diastolic blood pressure Provider Name and Address Organization Details Last Updated DateTime 07/23/2021 152.4 cm 33.4 kg/m2 81046.3 g 151 mm[Hg] 81 mm[Hg] [facility] 2 17:43:53 Date Recorded Body height Body mass index (BMI) Body weight Systolic blood pressure Diastolic blood pressure Provider Name and Address Organization Details Last Updated DateTime 03/05/2021 157.48 cm 32.9 kg/m2 60647.63 g 150 mm[Hg] 94 mm[Hg] [facility] 1 14:51:30 Date Recorded Body height Body mass index (BMI) Body weight Systolic blood pressure Diastolic blood pressure Provider Name and Address Organization Details Last Updated DateTime 04/03/2024 152.4 cm 33.6 kg/m2 81696.89 g 140 mm[Hg] 87 mm[Hg] [facility] 4 11:14:05 Social History Question Answer Notes LastModified by Organizat ion Details LastModified Time Tobacco Smoking Status Never Smoker Margot [facility], [facility] 03/29/2020 10:15:00 Are You Blind Or Do You Have Difficulty Seeing? No Information n ot available 07/10/2021 What Is Your Level Of Caffeine Consumption? Moderate Information not available 06/21/2020 In The 14 Days Before Symptom Onset, Have You Had Close Contact With A Laboratory-confirm ed COVID-19 While That Case Was Ill? No Information n ot available 04/03/2024 In The 14 Days Before Symptom Onset, Have You Had Close Contact With A Person Who Is Under Investigation For COVID-19 While That Person Was Ill? No Information not available 04/03/2024 Have You Been To An Area Known To Be High Risk For COVID-19? No Information not available 04/03/2024 Are You Deaf Or Do You Have Serious Difficulty Hearing? No Information not available 07/10/2021 What Type Of Diet Are You Following? REGULAR Information n ot available 07/10/2021 How Many Days Of Moderate To Strenuous Exercise, Like A Brisk Walk, Did You Do In The Last 7 Days? 5 Information not available 06/21/2020 On Those Days That You Engage In Moderate To Strenuous Exercise, How Many Minutes, On Average, Do You Exercise? 30 Information not available 06/21/2020 Do You Use Your Seat Belt Or Car Seat Routinely? Yes Information not available 07/10/2021 Do You Have Smoke And Carbon Monoxide Detectors In Your Home? Yes Information not available 07/10/2021 Do You Use Sunscreen Routinely? Yes Information not available 07/10/2021 Has Tobacco Cessation Counseling Been Provided? No Information not available 06/21/2020 Do You Have Difficulty Walking Or Climbing Stairs? No Information not available 07/10/2021 Sex: Unknown Functional Status Question Answer Note LastModified by Organizat ion Details LastModified Time Do you use any illicit or recreational drugs? No Information not available 06/21/2020 Do you or have you ever used any other forms of tobacco or nicotine? No Information not available 06/21/2020 Are you able to walk? YESWOREST Information not available 07/10/2021 Are you able to care for yourself? Yes Information n ot available 07/10/2021 Do you have difficulty dressing or bathing? No Information not available 07/10/2021 What is your exercise level? Moderate Information not available 06/21/2020 Mental Status Question Answer Note LastModified by Organization D etails LastModified Time Do you feel stressed (tense, restless, nervous, or anxious, or unable to sleep at night)? [id number] Information not available 07/10/2021 Family History Relationship Description Onset Age of this Age Resolved Age Notes LastModified by Organization Details LastModified Time Mother Hypertensive disorder Not available 2019 10:14:39 Mother Diabetes mellitus Not available 2019 10:14:44 Mother Malignant tumor of breast Not available 2019 10:14:50 Maternal Grandmother Diabetes mellitus Not available 2019 10:14:57 Medical History Condition Response Fibromyalgia Y Kidney or Bladder Problems Y Hypertension Y Gynecological History Statement/Question Response Abnormal Pap N If Post Menopausal, Age at Menopause 51 Date of Last Mammogram 05/26/2020 Most Recent Bone Density 05/26/2020 Sexually Active? Y STIs/STDs N Date of Last Pap Smear 07/11/2021 Sexual Problems? N 01/25/2020 Current Control Method Menopause LMP Unknown Obstetrics History GPAL:G 2 P 0 0 0 2 Type Value Living 2 Total 2 Past Encounters Encounter ID Performer Location Encounter Start Date Encounter Closed Date Diagnosis/Indication Diagnosis SNOMED-CT Code Diagnosis ICD10 Code Diagnosis Note [id number] Valarie Phan , [facility] [address] [address] 03/15/2020 14:52:42 03/16/2020 22:38:58 Acute urinary tract infection 971545108 N39.0 [id number] Valarie Phan , [facility] [address] [address] 03/29/2020 09:53:19 03/29/2020 12:16:06 Gynecologic examination 31321621 Z01.419 Take Calcium with Vitamin D 12-1500mg daily. Do monthly self breast exams. It is advised to get annual flu shot in the fall and she could obtain at [facility] or [facility] care clinic. If you haven't received the Tdap vaccine in the last 10 years you should obtain one as well. Have mammogram yearly, bone density every 2-3 years and colonoscop y every 5-10 years depending on findings and history. Engage in daily exercise of low impact aerobic exercise 45-60 minutes 4-5 times weekly. Avoid tobacco and illicit drugs as well as using moderation with alcohol intake less than 1-2 8 oz beverages daily. This lifestyle behavior pattern will lead to less health conditions and longer life span. If BMI greater than 25 weight watchers or dietary consult advised. Questions have been answered. Patient appears to understand instructio ns, but if you have any further questions call or respond to this email Pap/HPV updated [facility] [place] Menopausal symptom 77210 002 N95.1 We discussed INDEPTH Menopausal Hormone therapy (MHT) for women with intact uterus with the goals of reliving vaso-motor sx's using estrogen/p rogestin therapy (EPT) using lowest doses for shortest duration in women 40-59yo. Contraindi cations include: Hx of DVT or thrombolic events, High cholestero l, Hx of breast cancer, known CHD, active liver disease, unexplaine d vag bleeding, high risk endometria l cancer, TIA. Side effects can include but are not limited to: Irregular vag bleeding,, breast tenderness , nausea, weight changes, libido changes, nausea. Adverse Rxn: Elevated BP, migraine w/ visual changes, breast cancer dx, RI/stroke, DVT/PE, Endometria l cancer. Please contact office with any new or worsening side effects or adverse reactions. Or if a medical emergency please go to nearest ED/Urgency care for further evaluation . Non-HRT therapies also discussed including lifestyle changes, diet, SSRI/SNRI' s. The patient verbalizes that she accepts the risks of resuming HRT therapy at her age >60yo & current health status. She also understand s that there may be a time when risks outweigh benefits based on developmen t of additional health conditions /diseases or uncontroll ed HTN which will increase risks of PE/DVT/Car diovascula r events/ris ks for breast cancers. She again verbalizes that she is willing to accept the risks of this therapy. Will call in compounded E2/T cream to [facility] with same instructio ns. [facility] RTO x 3mos med check. [facility] labs given to perform. She is to let her PCP know the plan at upcoming appt with them. Will r/p in 3mos. [id number] Valarie Phan , [facility] [address] [address] 06/21/2020 12:29:20 06/21/2020 15:20:05 Climacteric flushing [id number] N95.1 Doing extremely well after restarting her HRT therapy. Sleeping better Energy is increased. Out walking & exercising Dietary changes Moods are better. We agreed to continue this therapy; will send RF's x 6mos worth after I receive updated labs given today. Time spent in visit is a total of 26 mins with at least 50% of visit consisting of counseling and review of plan of care. Additional precaution gregorio measures were taken to minimize potential exposure to the Covid-19 virus during this patient s visit, including available hand manager animation upon arrive, temperatur e check and being asked a series of screening questions. All staff wore face coverings during this encounter, as well as provided additional cleaning and sanitizing of all surfaces, including countertop s, pens, chairs, door handles, light switches, etc, prior to and following the patient s visit. RTO x 6mos f/u & updated labs If still stable will see at next [facility] then reassess every year. Localized eruption of skin [id number] R21 Small area of irritation on skin of tail bone. Itchy & feels irritated but not painful. We agreed trial of mycolog ointment. If no improvemen t in 2wks let us know. Shingles vaccinatio [place]. [id number] Remedios MarquezARELY felipe [place] [address] [address] 03/05/2021 14:25:27 03/06/2021 19:49:25 Urinary symptoms [id number] R39.9 Increase water and decrease caffeine. Will start macrobid as there is a contraindi cation with bactrim. Urine sent for culture. Instructed to call or return if any worsening of sympotms or new symptoms including back pain, fever or flu like symptoms. Vaginitis [id number] N76.0 Pt declined vagina/pel man today. Will go ahead with diflucan as she does already have some itching and will be on antibiotic s for suspected uti. [id number] [facility] [address] [address] 07/11/2021 12:23:07 07/11/2021 13:20:18 Gynecologic examination [id number] Z01.419 Take Calcium with Vitamin D 12-1500mg daily. Do monthly self breast exams. It is advised to get annual flu shot in the fall and she could obtain at [facility] or [facility] care clinic. If you haven't received the Tdap vaccine in the last 10 years you should obtain one as well. Have mammogram yearly, bone density every 2-3 years and colonoscop y every 5-10 years depending on findings and history. Engage in daily exercise of low impact aerobic exercise 45-60 minutes 4-5 times weekly. Avoid tobacco and illicit drugs as well as using moderation with alcohol intake less than 1-2 8 oz beverages daily. This lifestyle behavior pattern will lead to less health conditions and longer life span. If BMI greater than 25 weight watchers or dietary consult advised. Questions have been answered. Patient appears to understand instructio ns, but if you have any further questions call or respond to this email Pap/HPV updated Monogamous relationsh ipNOT SA Genetic screen discussed- -informati on given. Wants to read up on this test & then will return to office to complete [employer]. Mammo [facility] (sis 2020)Dexa 2020 wnlUTD PCP visits and routine labs--will send results Midline cystocele 532121 003 N81.11 Today she has opted to RTO for pessary fitting and trial of this device.Wan ts to avoid surgery if possible but understand s if goals of pessary are not achieved will need to consider referral to urogyn for further discussion and management . RTO 30min appt pessary fitting Menopausal symptom 43622 002 N95.1 We discussed INDEPTH Menopausal Hormone therapy (MHT) for women with intact uterus with the goals of reliving vaso-motor sx's using estrogen/p rogestin therapy (EPT) using lowest doses for shortest duration in women 40-59yo. Contraindi cations include: Hx of DVT or thrombolic events, High cholestero l, Hx of breast cancer, known CHD, active liver disease, unexplaine d vag bleeding, high risk endometria l cancer, TIA. Side effects can include but are not limited to: Irregular vag bleeding,, breast tenderness , nausea, weight changes, libido changes, nausea. Adverse Rxn: Elevated BP, migraine w/ visual changes, breast cancer dx, RI/stroke, DVT/PE, Endometria l cancer. Please contact office with any new or worsening side effects or adverse reactions. Or if a medical emergency please go to nearest ED/Urgency care for further evaluation . Non-HRT therapies also discussed including lifestyle changes, diet, SSRI/SNRI' s. The patient verbalizes that she accepts the risks of resuming HRT therapy at her age >61yo & current health status. She also understand s that there may be a time when risks outweigh benefits based on developmen t of additional health conditions /diseases or uncontroll ed HTN which will increase risks of PE/DVT/Car diovascula r events/ris ks for breast cancers. She again verbalizes that she is willing to accept the risks of this therapy. Will call in RF's of this compounded E2/T cream to [facility] with same instructio ns for the year if pharmacy notifies us it is time for refill. [facility] Needs to consider lowering doses even further and eventually trial another weaning schedule next year. [id number] Alcon Leach MD [place] [address] [address] 07/23/2021 17:11:20 07/23/2021 18:32:38 Postmenopausal bleeding [id number] N95.0 Prolapse o f female genital organs [id number] N81.9 Hormone re placement therapy [id number] Z79.890 this patient is a 66-year-ol d female who presents for bleeding. She had 2 episodes of heavy bright red bleeding. She has never had any postmenopa usal bleeding. The patient does describe what is most likely a complete procidenti a. She was coming in for pressor refitting in and 2 days. She denies any incontinen ce. She also Needs a repeat Pap smear. We discussed these problems. We discussed her bleeding. We discussed her history. We discussed her hormone replacemen t therapy. The patient does replace and supplement estrogen, progestero ne and testostero ne. She has been doing so for some time. We agreed to a pelvic ultrasound and afterward and endometria l biopsy, repeat Pap, exam and pessary fitting. We spent over 35 minutes face-to-fa ce discussing multiple complex topics including hormone replacemen t therapy, pelvic organ prolapse, postmenopa usal bleeding, urinary incontinen ce. [id number] Alcon Leach MD [place] [address] [address] 04/03/2024 10:35:25 04/03/2024 12:15:07 Infestation by Sarcoptes scabiei jaylen hominis [id number] B86 69-year-ol d female with intense pruritus or her anus and vulva. Has concern about sexually transmitte d disease. It is worse after a shower. Over the anus and on the vulva. Patient had contact with someone who is sexually promiscuou s. Has concern about sexually transmitte d disease. Examinatio n of the vulva and anus is normal. She reports excoriatio ns and erythemato us papules. Agreed to treat with permethrin . She is given instructio ns and precaution s with the medication . She was informed of the risks, benefits, and alternativ es. Agreed to follow up in 1 week. Health Concerns Section Related Observation LastModified by Organization Detai ls LastModified Time None Recorded Concern Status LastModified by Organization Details LastModified Time None Recorded Advance Directives Directive None Recorded Payers Encounter Date Sequence Insurance Name Policy Number Policy Macdonald Covered Member ID Macdonald Member ID Guarantor Name 06/21/2020 1 [facility] [id number] Kathie Owendale [id number] Kathie Irma 03/05/2021 1 [place] [id number] Kathie Owendale [id number] Kathie Owendale 03/05/2021 2 [place] Kathie J Irma [id number] Kathie Owendale 07/11/2021 1 [facility] [id number] Kathie Owendale [id number] Kathie Irma 07/11/2021 2 [place] Kathie J Owendale [id number] Kathie Owendale 07/23/2021 1 [facility] [id number] Kathie Irma [id number] Kathie Owendale 07/23/2021 2 [place] Kathie J Owendale [id number] 3 Kathie Owendale 04/03/2024 2 [place] Kathie J Owendale [id number] 3 Kathie Owendale 04/03/2024 1 [facility] [id number] 1 Kathie Owendale [id number] Kathie Owendale Notes Date Note Type Note Provider Name and Address Organization Details Recorded Time 06/21/2020 text/html Patient is here today for a medicaton check of HRT therapy. She voices goals of therapy have been met with use of this therapy. She denies neg side effects. She is eating, drinking, sleeping well; moods are stable & neg AUB. Wishes to continue this method of therapy Valarie Phan, [facility]- [address], [place], [address], [place] [facility] 06/21/2020 12:58:33 03/05/2021 text/html Increased freque ncy on FridayItching and burning.Took one does of bactrim she had at home. Remedios cote, [facility] 03/09/2021 10:23:24 07/11/2021 text/html Annual Corrective Therapy Aide Post-MenopausalRepor brittney bypatient.Menopausal Symptoms:no menopausal symptoms; normal vaginal lubrication Vaginal Bleeding:history of menopause having occurred; no history of post menopausal bleeding Urinary Symptoms:no hematuria; no incontinence; no nocturia; no urinary frequency; Feels that her bladder has fallen more. Can detect it at the introital opening; especially if she has been standing upright for a long period of time. Denies that it has inhibited her ability to void; and denies prominent NICHELLE although rafi have a few dribbles with extra hard cough or laugh. She is not SA. Does not feel she has had issues with increased UTI's or pain. Vulva:no genital lesion; no vulvar atrophy Vagina:normal vaginal discharge; no vaginal atrophy Breast:no breast lump; no nipple discharge; no breast pain Sexual Complaints:no sexual complaints Psychological Symptoms:no depression; no anxiety Preventive Measures:encourage regular mammograms starting age 40; encourage self breast examination; encourage regular exercise; encourage no tobacco use; mammogram performed within the past year; history of recent colonoscopy (Cologuard PCP Managed); UTD Lety 2020 wnl Valarie Phan, [facility]- [address], [place], [address], [facility] 07/11/2021 13:20:03 07/23/2021 text/html this patient is a 66-year-old female who presents for bleeding. She had 2 episodes of heavy bright red bleeding. She has never had any postmenopausal bleeding. The patient does describe what is most likely a complete procidentia. She was coming in for pressor refitting in and 2 days. She denies any incontinence. She also Needs a repeat Pap smear. We discussed these problems. We discussed her bleeding. We discussed her history. We discussed her hormone replacement therapy. The patient does replace and supplement estrogen, progesterone and testosterone. She has been doing so for some time. We agreed to a pelvic ultrasound and afterward and endometrial biopsy, repeat Pap, exam and pessary fitting. We spent over 35 minutes [id number] discussing multiple complex topics including hormone replacement therapy, pelvic organ prolapse, postmenopausal bleeding, urinary incontinence. Alcon Leach MD [address], [place], [address], [facility] 07/23/2021 21:07:22 04/03/2024 text/html 69-year-old fema le with intense pruritus or her anus and vulva. Has concern about sexually transmitted disease. It is worse after a shower. Over the anus and on the vulva. Patient had contact with someone who is sexually promiscuous. Has concern about sexually transmitted disease. Examination of the vulva and anus is normal. She reports excoriations and erythematous papules. Agreed to treat with permethrin. She is given instructions and precautions with the medication. She was informed of the risks, benefits, and alternatives. Agreed to follow up in 1 week. Alcon Leach MD [address], [place], [address], [facility] 04/03/2024 12:14:50 OBGyn Episode Ob Episode Information Episode Created Date Number of Fetuses Patient Bloodtype Patient rh Status Prepregnancy Weight lbs Domestic Partner Domestic Partner Phone Father Name [employer] Status 03/29/20 20 1 CLOSED Fetus Data First Name Last Name Admitted to NICU Weight (g) Sex Living Outcome Pediatric Complications Fetus ID Race Codes Race Delivery Type M [id number] Vaginal Delivery Grzegorz Calculation Initial Grzegorz Date Initial Exam Date Initial Exam Provider Initial Ultrasound Date Last Menstrual Period Date Ultra Sound Weeks Gestation 0 Eighteen To Twenty Week Grzegorz Update Ultra Sound Date Fundal Height At Umbil Quickening Date Ultra Sound Latest Weeks Gestation Final Grzegorz Confirmed By Final Grzegorz Confirmed Date Final Grzegorz Date Ultra Sound Latest Days Gestation 0 0 Menstrual History Last Menstrual Date Menses Monthly On Bcp Conception Prior Menses Frequency Hcg Plus Date Menarche Onset Age Delivery Information Delivery Date Delivery Type Labor Anesthesia Weeks Gestation Incision Type Labor Labor Length Hrs Delivered By Post Complications Tubal Sterilization Discharge Date Comments 4 Fredrick Discharge Information Feeding Method Contraceptive Method Maternal HG B and HCT Levels Ob Episode Information Episode Created Date Number of Fetuses Patient Bloodtype Patient rh Status Prepregnancy Weight lbs Domestic Partner Domestic Partner Phone Father Name [employer]visor [employer] Status 03/29/20 20 1 CLOSED Fetus Data First Name Last Name Admitted to NICU Weight (g) Sex Living Outcome Pediatric Complications Fetus ID Race Codes Race Delivery Type M [id number] Vaginal Delivery Grzegorz Calculation Initial Grzegorz Date Initial Exam Date Initial Exam Provider Initial Ultrasound Date Last Menstrual Period Date Ultra Sound Weeks Gestation 0 Eighteen To Twenty Week Grzegorz Update Ultra Sound Date Fundal Height At Umbil Quickening Date Ultra Sound Latest Weeks Gestation Final Grzegorz Confirmed By Final Grzegorz Confirmed Date Final Grzegorz Date Ultra Sound Latest Days Gestation 0 0 Menstrual History Last Menstrual Date Menses Monthly On Bcp Conception Prior Menses Frequency Hcg Plus Date Menarche Onset Age Delivery Information Delivery Date Delivery Type Labor Anesthesia Weeks Gestation Incision Type Labor Labor Length Hrs Delivered By Post Complications Tubal Sterilization Discharge Date Comments 0 Bhupinder Discharge Information Feeding Method Contraceptive Method Maternal HG B and HCT Levels
== END 2024-10-20 10:19 | disposition home or self-care (01) ==
PROVIDERS: PCP Physician Assistant; Visit Provider Physician Assistant
DX: R05.1 Acute cough (principal)
CPT/HCPCS: 71046